=== PATIENT | female | born 1940 | race African-American/Black ===

== ENCOUNTER → 2017-11-05 | Outpatient (CLI) | payer OTHER, BC | LOC: BHFA 14:00 | PROVIDERS: ATTEND Internal Medicine Cardiovascular Disease | DX: R06.00 Dyspnea, unspecified (principal) ==

== ENCOUNTER → 2017-11-09 | Outpatient (CLI) | payer OTHER, BC | LOC: BHFA 08:30 | PROVIDERS: ATTEND Internal Medicine Cardiovascular Disease | DX: I50.9 Heart failure, unspecified (principal) | CPT/HCPCS: 78452; 93017; A9500; J2785 ==

== ENCOUNTER 2017-12-01 09:55 | Inpatient (IN) | payer OTHER, BC ==
--- NOTE | 2017-12-01 12:00 | GHP ---
[f rep st] HISTORY AND PHYSICAL DATE OF ADMISSION: 12/01/2017 INDICATIONS FOR ADMISSION: Heart failure. HISTORY OF PRESENT ILLNESS: This is a very pleasant, 77-year-old female who normally follows with Dr Faviola Patel in our office. The patient had a recent nuclear scan and echocardiogram, which showed no ischemia but an ejection fraction of less than 25% with torrential MR and tricuspid regurgitation . Given her reduced EF, as well as her significant MR/TR, she was referred to Dr. Sha Rose for ev aluation for possible tricuspid and mitral valve surgery. The patient was also found to be in atrial fibrillation at her time of visit, with a controlled ventricular rate. The patient saw Dr. Rose judd today and was found to be significantly fluid overloaded, with bilateral 3+ pitting edema. The patient has also been noticing extreme shortness of breath with minimal exertion. She denies any ch est pain at this point. Dr. Rose felt the patient should be evaluated for in-hospital diuresis, giv en her excessive weight gain and lower extremity edema. Upon evaluation of the patient, the patient indicates that she has been getting increasingly lethargic and increasing weight gain over the last m onth, despite changes of diuretic regimen as an outpatient. She does follow with Dr. Flower from [facility] as an outpatient. She is otherwise quite pleasant. Laboratory values and ECG are currently pending at this point. Blo od pressure and heart rate are stable. She is with her today, and she is willing to be admit tawny to the hospital for IV diuresis. PAST MEDICAL HISTORY: Significant for atrial fibrillation, sleep apnea, renal insufficiency. PAST SURGICAL HISTORY: Significant for nephrectomy, left side; hysterectomy; cholecystectomy; append ectomy. HOME MEDICATIONS: Consist of allopurinol, amlodipine, Benicar, carvedilol, Colace, furosemide, hydra lazine, lisinopril, tramadol, Coumadin. ALLERGIES: Penicillin. SOCIAL HISTORY: No smoking or drinking. The patient is currently . FAMILY HISTORY: Noncontributory. REVIEW OF SYSTEMS: Patient denies any vision changes. No headache. No palpitations. No chest pain . She does indicate a mild dyspnea with exertion. She does indicate having increased abdominal girt h, as well as significant lower extremity swelling. She denies any rashes, abrasions, or neurologic changes. PHYSICAL EXAM: VITAL SIGNS: Patient is currently afebrile at 96. Blood pressure is currently 140/9 0 with a heart rate of 72, respirations 12, saturating 95% on room air. HEENT: Pupils equal, round, reactive to light and accommodation. Extraocular movements intact. CARDIOVASCULAR: Irregularly ir regular S1, S2. There is a 2/6 systolic murmur, heard best at the apex. LUNGS: Reveal decreased br eath sounds at the right base. ABDOMEN: Soft, nontender. No guarding. EXTREMITIES: Reveal 3+ umair ma in the lower extremities bilaterally. NEUROLOGIC: The patient is alert x3. LABORATORY VALUES: Currently pending at this point. ASSESSMENT/PLAN: Weight gain/edema/heart failure. At this time, the patient appears to be volume ov erloaded. We will admit the patient to telemetry and commence intravenous diuresis. We will check h er baseline labs. We will also consult [facility] for assistance in her care. Ideally, espinozaul d like to diurese her at least 10-20 pounds with, hopefully, maintaining her kidney function. If thi s can be achieved, potentially we can re-discuss with Dr. Rose in the future about possible surgery if he deems her to be a suitable candidate. /[id number]/MODL
[2017-12-01] MEDS ORDERED: ACETAMINOPHEN 325 MG TAB PO PRN (14:16)
--- NOTE | 2017-12-01 14:19 | PDCONSULT ---
Television Antenna Installer Note: Renal Consult Note: CC: Edema HPI: The patient is a 77 y/o F with a known h/o CKD Stage IV, HTN, and CHF who presents as a direct admission per Dr. Win for volume overload. She reported that she has had increasing weight gain over the last month and was recently found to have worsening of her EF to 25% with severe MR/TR. She is being evaluated for a valve. She currently follows with Dr. Flower of [facility] and last had labs on 11/16 with Cr of 1.9mg/dL and minimal proteinuria. Today she states that she gained nearly 10lbs just since last Thursday and is now 159lbs, dry weight 140lbs. She denies any CP, h/o UT, or other ROS. She says that when she went to see Dr. Flower last time she was switched from lasix to bumex and her benicar was held, however, she remained on lisinopril and her other medications. She does admit to not watching her salt intake and often eats prepared food. Finally, she admits to a recent cough with no fevers or ill contacts. She denies other ROS. PMH: Atrial fibrillation, HTN, HL, CKD, EZ PSH: L sided nephrectomy, cholecystectomy, appendectomy Social Hx: , no ETOH or nicotine abuse Medications: List being reconciled. Allergies: Morphine, PCN>rash ROS: Negative except as per HPI Objective: Temp Pulse Resp BP Pulse Ox 36.6 C 104 H 18 125/88 H 95 12/01/17 12:53 12/01/17 12:53 12/01/17 12:53 12/01/17 12:53 12/01/17 12:53 Physical Exam: GEN: A+Ox3, no distress HEENT: +JVD, MMM CV: Irregular, systolic ejection murmur LLSB RESP: Decreased b/l no wheezing ABD: Soft, NT, ND EXT: 2+ edema to thighs NEURO: Non-focal, CN 2-12 grossly intact, normal strength SKIN: No rashes or lesions PSYCH: Normal affect, cooperative Labs: CXR pending Imaging: None on this admission. A/P: The patient is a 77 y/o F with a known h/o multiple medical issues and advanced renal disease who presents with volume overload, worsening systolic HF and severe MR/TR. CKD Stage IV -last Cr 1.9, labs pending as above -presumed cardiorenal syndrome in the setting of L nephrectomy -keep MAP>65, avoid contrast -need for dialysis not yet discussed, however will preserve non-dominant arm if PICC placement required HTN/vol: -would give lasix 80mg IV BID and monitor response, may need to change to bumex or add metolazone pending response -daily weights I/O's -low sodium diet, fluid restriction 1.5L -continue home meds of Coreg, amlodipine and hold hydralazine -Benicar held, await Cr to start JEREL inhibitor CHF with MR/TR -BNP, TSH pending -admitted by cardiology -possible future valve procedure with Dr. Rose -on coumadin for afib, daily INR Anemia -check CBC BMD -check daily chem7 -continue gout medications Thank you for this consult, we will continue to follow with you. If ?'s please call #[phone].
[2017-12-01] MEDS ORDERED: ALTEPLASE 2 MG VIAL IVP PRN (15:08)
--- NOTE | 2017-12-01 15:31 | CPEKG ---
Heart Rate: 108 RR Interval: 556 QRSD Interval: 96 QT Interval: 348 QTC Interval: 467 QRS [place]: -40 T Wave [place]: 109 EKG Severity - ABNORMAL ECG - EKG Impression: ATRIAL FIBRILLATION, V-RATE 84-139 EKG Impression: LEFT AXIS DEVIATION EKG Impression: BORDERLINE R WAVE PROGRESSION, ANTERIOR LEADS EKG Impression: NONSPECIFIC T ABNORMALITIES, LATERAL LEADS Electronically Signed By: Leroy Cadnea 01-Dec-2017 19:18:17
[2017-12-01 17:10] LABS: PLATELET COUNT 127 10^3/uL (150-400)
[2017-12-01 17:23] LABS: INR 2.12 (0.83-1.16); PROTIME(PATIENT) 23.8 SEC (12.0-15.0)
[2017-12-01] MEDS: FUROSEMIDE 100 MG/10 ML VIAL IVP SCH (17:24)
[2017-12-01] MEDS: CARVEDILOL 25 MG TAB PO SCH (18:18)
[2017-12-02 06:12] LABS: INR 2.25 (0.83-1.16); PROTIME(PATIENT) 24.9 SEC (12.0-15.0)
[2017-12-02] MEDS: FUROSEMIDE 100 MG/10 ML VIAL IVP SCH ×3 (06:16→21:06)
--- NOTE | 2017-12-02 06:58 | PDCARPN ---
Cardiology Progress Note Chief Complaint: SOB Assessment/Plan: Assessment: HF Valvular heart disease AF Plan: 12/02/17 06:55 Pt is diuresing but had difficulty sleeping Continue IV lasix renal function stable Appreciate nephrology input check labs in AM Pharmacy to dose coumadin restrict fluid/Na intake close eye on I/O's Add imdur Can add digoxin for rate control if needed Subjective: stable, less SOB Reviewed/Discussed With: multidisciplinary team Time Spent With Patient: 25 min Objective: Vital Signs (8 Hrs) Temp Pulse Resp BP Pulse Ox 12/02/17 04:00 36.3 C 101 H 18 129/91 H 91 L 12/01/17 23:34 36.6 C 106 H 18 123/94 H 91 L Intake/Output (24 Hrs) 12/01/17 12/02/17 12/03/17 05:59 05:59 05:59 Intake Total 1400 Output Total 900 Balance 500 Intake: Oral (ml) 1400 Output: Urine (ml) 900 Toilet 900 Other: Weight 70.9 kg Intake Quantity Yes Sufficient Result Diagrams: 12/01/17 16:30 12/02/17 05:50 - Physical Exam Constitutional: no apparent distress Ears, Nose, Mouth, Throat: moist mucous membranes Cardiovascular: irregularly irregular Peripheral Pulses: 1+: femoral (R), femoral (L) Respiratory: no crackles, no wheezes Gastrointestinal: normoactive bowel sounds Genitourinary: no suprapubic tenderness Skin: other (bilateral LE edema) Neurologic: AAOx3 Psychiatric: cooperative ICD10 Worksheet Patient Problems: Problems Problem Status Onset Diastolic CHF Acute Hypertension Acute Kidney neoplasm Acute PVC (premature ventricular contraction) Acute
--- NOTE | 2017-12-02 09:43 | ASMTCASEMG ---
Living Arrangements What is your living Answers: With Spouse arrangement? Who do you live with? Type Of Residence What kind of residence do Answers: House you live in? Discharge Plan Comments Coordination Status Comments Notes: Pt is a 77 y/o female admitted for CHF and cardiomyopathy. Pt will most likely d/c independent when medically stable. No therapies ordered at this time. CM available for changes. Plan: Independent Date Signed: 12/02/2017 09:42 AM Electronically Signed By:CHERYL Pfeiffer
[2017-12-02] MEDS: CARVEDILOL 25 MG TAB PO SCH ×2 (10:36→17:36)
[2017-12-02] MEDS: ISOSORBIDE MONONITRATE 30 MG TAB.SR PO SCH (10:36)
--- NOTE | 2017-12-02 11:20 | SOAPPROG ---
DEBRA Progress Note Assessment/Plan: Assessment: CHF consultation performed and dictated. 77 y/o AA woman with following cardiac history: --HTN x 50yrs. --first told she had CHF while living in [facility] 2004 --partial left nephrectomy for renal cancer reportedly in remission (2013) with CRI with baseline creatinine of 1.8. --echo 06/27 showed LVEf 45% with moderate MR and TR and estimated PAS 54mmHg. --back in summer of 2016 had personal fitness manager and could walk 1-2 miles. --hasn't felt well since Thanksgi2016 when she had a cold. She has gained 20lbs, has MONTNAA at 2 blocks and anasarca. --echo 11/08/17 shows LVEf 28% with moderate to severe MR and TR, estimated PAS 59mmHg and LVEDD 6.0cm.and new afib. --cardiolite 10/29 showed LVEf 22% with no ischemia. DDx of new onset CHF: valvular from MR and TR, afib with RVR, CAD or post viral from illness last fall. She is in biventricular CHF. PLAN: 1)increase Lasix to 80mg IV q8hrs. 2)start Aldactone 25mg PO qam 3)once euvolemic in 3-4 days of diuresis, repeat echo and do L/R cardiac cath ( if serum creatinine < 2.0) 4)no ACEI, ARB or ARNI for now. 5)full thyroid panel with abnormally low TSH 6)would not iraheta to cardiac surgery currently. High risk for RV failure luis- operatively. Thanks will follow with you. 12/02/17 11:14 Objective: Vital Signs Temp Pulse Resp BP Pulse Ox 36.3 C 100 13 120/92 H 94 12/02/17 04:00 12/02/17 10:36 12/02/17 08:00 12/02/17 10:36 12/02/17 08:00 Laboratory Results 12/01/17 16:30 12/02/17 05:50 12/01/17 12/02/17 12/03/17 05:59 05:59 05:59 Intake Total 1400 Output Total 900 Balance 500 PT 24.9 SEC (12.0-15.0) H 12/02/17 05:50 INR 2.25 (0.83-1.16) H 12/02/17 05:50 ICD10 Worksheet Patient Problems: Problems Problem Status Onset Diastolic CHF Acute Hypertension Acute Kidney neoplasm Acute PVC (premature ventricular contraction) Acute
[2017-12-02] MEDS: SPIRONOLACTONE 25 MG TAB PO SCH (12:18)
--- NOTE | 2017-12-02 13:14 | GCON ---
[f rep st] CONSULTATION CONGESTIVE HEART FAILURE CONSULTATION. DATE OF CONSULTATION: 12/02/2017 REASON FOR CONSULTATION: Evaluate woman with 25-pound weight gain, anasarca, and new biventricular heart failure, and recommend future management. HISTORY OF PRESENT ILLNESS: I was asked by Dr. Win to consult for the above reasons. The patient is a 77-year-old woman with the following cardiac history. She was first told she had heart failure in [facility] in 2004. She had a partial left nephrectomy for renal cancer in 2013, and reportedly is in remission. An echo in June 2016 demonstrated an LVEF of 45% with moderate mitral and tricuspid insufficiency, and with an estimated PA pressure of 54 mmHg. Up until August of last year, she had a maintenance trainer and said she could walk 1-2 miles without difficulty. She has not been feeling well since 2016. She did have a viral syndrome in that time frame. Over the next 4 months she has gained 20 pounds and has total body anasarca with symptomatic edema and is short of breath walking 2 blocks. An echo in October 2017 demonstrated an LVEF of 28% with [id number] RV dysfunction and vzxpsfdc-[id number] mitral and tricuspid insufficiency, with an LVEDD of 6.0 cm and an estimated PA pressure of 59 mmHg. A Cardiolite stress test in October 2017 suggested an LVEF of 22% with no ischemia. She was admitted to the hospital yesterday and was begun on IV Lasix. PAST MEDICAL HISTORY: New-onset systolic heart failure as per HPI. Moderate-to -severe mitral and tricuspid insufficiency as per HPI. New-onset AFib of unknown duration, sleep apnea, hypertension x50 year, and chronic renal insufficiency with a baseline creatinine of 1.8. PAST SURGICAL HISTORY: Partial left nephrectomy in 2013, cholecystectomy, and appendectomy. CURRENT MEDICATIONS: Coreg 25 mg b.i.d., Lasix 80 mg IV q.12 hours, Imdur, and Coumadin. ALLERGIES: Morphine and penicillin. SOCIAL HISTORY: Patient is . She denies tobacco use and has mild alcohol intake. FAMILY HISTORY: Unremarkable for premature heart failure or premature coronary artery disease. REVIEW OF SYSTEMS: Patient reports no recent fevers, chills, hemoptysis, or GI bleed symptoms such as hematemesis, melena, or bright red blood per rectum. Rest of 10-point review of systems is negative. PHYSICAL EXAMINATION: VITAL SIGNS: Afebrile, pulse 91 and irregularly irregular, blood pressure 132/90, respirations 20 on 3 L/minute, 91%. Weight 70.9 kg. GENERAL: A normal-appearing woman in no acute distress without chest pain or using excess respiratory muscles. EYES: Pupils equal and reactive to light. ENT: Oral mucosa with no cyanosis. NECK: Jugular venous pressure to 9 -10 cm. Carotid pulses 2+ bilaterally with no obvious bruits. LUNGS: Crackles at the bases bilaterally with no obvious wheezes or rhonchi. HEART: Slightly enlarged PMI and irregularly irregular rhythm with 2/6 holosystolic murmur and positive S3 gallop. ABDOMEN: Soft and nontender. Hepatosplenomegaly noted. No obvious ascites. No guarding or rebound. EXTREMITIES: 2+ peripheral pulses including femoral and pedal pulses. 2+ and no edema bilaterally to above the knees. NEURO: Normal affect and mood. NECK no nuchal rigidity. SKIN: No bleeding or cyanosis. EKG: Atrial fibrillation at 108 beats per minute with nonspecific ST depression. LABORATORY DATA: White count 4.3, hematocrit 34, platelets 127,000, MCV 91. INR 2.25. NT proBNP level 6000. Sodium 143, potassium 4.1, chloride 110, bicarb 23, BUN 52, creatinine 1.8. TSH 0.12. IMPRESSION AND RECOMMENDATIONS: A 77-year-old woman with new onset systolic heart failure with biventricular heart failure with a left ventricular ejection fraction of 28% and concurrent right ventricular dysfunction with class III-IV [place] [employer] symptoms. Differential diagnosis includes tachycardia-induced heart failure from atrial fibrillation versus post viral exposure maybe August 2017 versus primary valvular process from her mitral regurgitation, underlying coronary disease, or hypertension. She is still markedly hypervolemic. I think she would be high risk for cardiac surgery right now with possible right ventricular failure. RECOMMENDATIONS: 1. Would increase Lasix to 80 mg IV q.8 hours. 2. Would start on Aldactone 25 mg per day. 3. For now, would not put on an JEREL, ARB, or ARNI agent. 4. Would check full thyroid panel to make sure she is not hyperthyroid. 5. Once she is euvolemic (which I suspect will be in 3-4 days of diuresis), would do an echocardiogram and a left and right heart catheterization if her serum creatinine is less than 2.0. 6. My overall thought would be to control her atrial fibrillation rate and possibly try to convert to sinus rhythm and congestive heart failure medicines for 2-3 months before any valve surgery. /[id number]/MODL MTDD
--- NOTE | 2017-12-02 14:09 | SOAPPROG ---
SOAP Progress Note Assessment/Plan: A/P: The patient is a 77 y/o F with a known h/o multiple medical issues and advanced renal disease who presents with volume overload, worsening systolic HF and severe MR/TR. CKD Stage IV -last Cr 1.9, currently 1.8mg/dL today -presumed cardiorenal syndrome in the setting of L nephrectomy -keep MAP>65, avoid contrast -need for dialysis not yet discussed, however will preserve non-dominant arm if PICC placement required HTN/vol: -agree with lasix 80mg IV qh8, will order 3h urine sodium post medication for goal 60-80mEq -daily weights I/O's -low sodium diet, fluid restriction 1.5L -continue home meds of Coreg, amlodipine -Benicar held, await Cr to start JEREL inhibitor CHF with MR/TR -TSH low, awaiting free T3, T4 -aldactone started per cardiology -possible future valve procedure with Dr. Rose Peterson -on BB -on coumadin, daily INR -may consider future cardioversion Anemia -Hb >11 at goal -monitor CBC BMD -check daily chem7 -continue gout medications renally dosed 12/02/17 15:06 Subjective: Patient feeling well today. Up to chair. Admits that she was diagnosed with afib in August, however, thinks she had it "for a long time before that." Also , has lost nearly 3lbs since admission and admits that not all urine was collected in the hat yesterday. Objective: Vital Signs Temp Pulse Resp BP Pulse Ox 36.4 C 99 20 125/91 H 93 12/02/17 12:00 12/02/17 12:00 12/02/17 12:00 12/02/17 12:00 12/02/17 12:00 Laboratory Results 12/01/17 16:30 12/02/17 05:50 12/01/17 12/02/17 12/03/17 05:59 05:59 05:59 Intake Total 1400 Output Total 900 Balance 500 PT 24.9 SEC (12.0-15.0) H 12/02/17 05:50 INR 2.25 (0.83-1.16) H 12/02/17 05:50 Physical Exam - Physical Exam General Appearance: WD/WN, alert, no apparent distress EENT: PERRL/EOMI, normal ENT inspection Neck: non-tender, full range of motion, supple Respiratory: normal breath sounds, respiratory distress, decreased breath sounds Cardiac/Chest: normal peripheral pulses, edema, irregularly irregular Abdomen: normal bowel sounds, non-tender, soft Back: Normal inspection Skin: normal color, warm/dry Extremities: normal range of motion, pedal edema Neuro/Psych: no motor/sensory deficits, alert, normal mood/affect, oriented x 3 ICD10 Worksheet Patient Problems: Problems Problem Status Onset Diastolic CHF Acute Hypertension Acute Kidney neoplasm Acute PVC (premature ventricular contraction) Acute
[2017-12-02] MEDS ORDERED: WARFARIN SODIUM 5 MG TAB PO SCH (16:00)
[2017-12-02] MEDS: traMADol 50 MG TAB PO SCH (20:19)
[2017-12-02] MEDS: ALLOPURINOL 100 MG TAB PO SCH (20:20)
[2017-12-03] MEDS: FUROSEMIDE 100 MG/10 ML VIAL IVP SCH ×3 (05:12→21:16)
[2017-12-03 05:34] LABS: INR 2.28 (0.83-1.16); PROTIME(PATIENT) 25.1 SEC (12.0-15.0)
--- NOTE | 2017-12-03 07:15 | PDCARPN ---
Cardiology Progress Note Chief Complaint: SOB/edema Assessment/Plan: Assessment: HF Valvular heart disease AF Plan: 12/02/17 06:55 Pt is diuresing but had difficulty sleeping Continue IV lasix renal function stable Appreciate nephrology input check labs in AM Pharmacy to dose coumadin restrict fluid/Na intake close eye on I/O's Add imdur Can add digoxin for rate control if needed 12/03/17 07:14 Doing better good u/o Cr improving K low today--start KCL 20 meq po bid Continue current tx Check labs in AM Subjective: less SOB Reviewed/Discussed With: multidisciplinary team Time Spent With Patient: 25 min Objective: Vital Signs (8 Hrs) Temp Pulse Resp BP Pulse Ox 12/03/17 03:51 36.3 C 111 H 18 136/90 H 96 12/02/17 23:21 36.7 C 107 H 16 121/84 H 91 L Intake/Output (24 Hrs) 12/02/17 12/03/17 12/04/17 05:59 05:59 05:59 Intake Total 1400 900 Output Total 900 4650 Balance 500 -3750 Intake: Oral (ml) 1400 900 Output: Urine (ml) 900 4650 Toilet 900 4650 Other: Weight 70.9 kg 68.4 kg Intake Quantity Yes Sufficient Number of Voids Toilet 1 Result Diagrams: 12/03/17 05:10 12/03/17 05:10 - Physical Exam Constitutional: healthy appearing Eyes: PERRL Ears, Nose, Mouth, Throat: moist mucous membranes Cardiovascular: irregularly irregular Peripheral Pulses: 1+: femoral (R), femoral (L) Gastrointestinal: normoactive bowel sounds Genitourinary: no suprapubic tenderness Skin: other (LE edema) Musculoskeletal: no muscular tenderness Neurologic: AAOx3 Psychiatric: cooperative ICD10 Worksheet Patient Problems: Problems Problem Status Onset Diastolic CHF Acute Hypertension Acute Kidney neoplasm Acute PVC (premature ventricular contraction) Acute
[2017-12-03] MEDS: ISOSORBIDE MONONITRATE 30 MG TAB.SR PO SCH (08:00)
[2017-12-03] MEDS: POTASSIUM CL 20 MEQ TAB PO SCH ×2 (08:01→20:14)
[2017-12-03] MEDS: CARVEDILOL 25 MG TAB PO SCH ×2 (08:01→17:25)
[2017-12-03] MEDS: SPIRONOLACTONE 25 MG TAB PO SCH (08:01)
[2017-12-03] MEDS: traMADol 50 MG TAB PO SCH ×2 (08:02→20:14)
[2017-12-03] MEDS: ALLOPURINOL 100 MG TAB PO SCH ×2 (08:02→20:14)
[2017-12-03] MEDS: guaiFENesin 200 MG/10 ML UDL PO PRN ×2 (08:19→20:19)
[2017-12-03] MEDS ORDERED: POTASSIUM CL 20 MEQ TAB PO SCH (09:00)
--- NOTE | 2017-12-03 14:41 | ASMTCMCOM ---
CM Note CM Note Notes: CM spoke w/ Shayna with transitional care. Shayna is recommending for pt to have a HC RN. CM met w/ pt for dispo planning. Pt reports that she is not interested in being home bound at this time to have HC. Pt reports that she is an active person and feels comfortable w/ discharging without any services. CM available for changes. Plan: Independent Date Signed: 12/03/2017 02:41 PM Electronically Signed By:CHERYL Pfeiffer
[2017-12-03] MEDS ORDERED: POTASSIUM CL 20 MEQ TAB PO ONE (15:13)
--- NOTE | 2017-12-03 15:18 | SOAPPROG ---
SOAP Progress Note Assessment/Plan: Assessment/Plan: CKD 3: baseline Cr lately has been 1.7-2.0, currently Cr is down to 1.6, likely has some cardiorenal component in setting of also having solitary kidney. - No need for HD. - Ok to continue diuresis. - Will continue to monitor. - Avoid hypotension and nephrotoxins. Hypokalemia: K down to 3.2 in setting of diuretics. - Will give KCl supplementation today. - Pt also on spironolactone. - Will continue to monitor. Hypervolemia: slowly improving, pt on diuretics, will continue to monitor. HTN: controlled on current meds, will monitor. Subjective: No acute events overnight. Pt states that she is urinating a lot. Her breathing feels much better overall, swelling is improving a little but still there. Objective: Vital Signs Temp Pulse Resp BP Pulse Ox 36.5 C 100 16 120/81 H 95 12/03/17 11:21 12/03/17 11:21 12/03/17 11:21 12/03/17 11:21 12/03/17 11:21 Laboratory Results 12/03/17 05:10 12/03/17 05:10 12/02/17 12/03/17 12/04/17 05:59 05:59 05:59 Intake Total 1400 900 Output Total 900 4650 Balance 500 -3750 PT 25.1 SEC (12.0-15.0) H 12/03/17 05:10 INR 2.28 (0.83-1.16) H 12/03/17 05:10 General: alert and oriented, no acute distress Eyes: EOMI, PERRL OP: Clear CV: RRR Resp: CTA bilat, diminished breath sounds at bases, nonlabored respirations on NC Abd: Soft, NT/ND Ext: +2 edema BLE Neuro: CN II-XII grossly intact, no asterixis Psych: Cooperative, appropriate mood and affect ICD10 Worksheet Patient Problems: Problems Problem Status Onset chronic disease mgmt/transitional care Acute Diastolic CHF Acute Hypertension Acute Kidney neoplasm Acute PVC (premature ventricular contraction) Acute
[2017-12-03] MEDS ORDERED: WARFARIN SODIUM 2.5 MG TAB PO ONE (16:00)
[2017-12-04 04:14] LABS: PLATELET COUNT 118 10^3/uL (150-400)
[2017-12-04 04:38] LABS: INR 2.47 (0.83-1.16); PROTIME(PATIENT) 26.7 SEC (12.0-15.0)
[2017-12-04] MEDS: FUROSEMIDE 100 MG/10 ML VIAL IVP SCH ×2 (06:18→17:02)
--- NOTE | 2017-12-04 07:06 | PDCARPN ---
Cardiology Progress Note Chief Complaint: SOB/edema Assessment/Plan: Assessment: HF Valvular heart disease AF Plan: 12/02/17 06:55 Pt is diuresing but had difficulty sleeping Continue IV lasix renal function stable Appreciate nephrology input check labs in AM Pharmacy to dose coumadin restrict fluid/Na intake close eye on I/O's Add imdur Can add digoxin for rate control if needed 12/03/17 07:14 Doing better good u/o Cr improving K low today--start KCL 20 meq po bid Continue current tx Check labs in AM 12/04/17 07:03 Doing well Renal function improving Continue IV diuretics--needs at leas 10 lbs more off Renal following check labs in AM Goal is to reduce volume, plan for RHC/LHC next week if Cr stable Cardioversion can be performed, however given pt's myopathy, ability to stay in [facility]R long-term may not be realistic Subjective: doing well Reviewed/Discussed With: multidisciplinary team Time Spent With Patient: 25 min Objective: Vital Signs (8 Hrs) Temp Pulse Resp BP Pulse Ox 12/04/17 04:00 36.6 C 64 16 122/85 H 95 12/03/17 23:32 36.2 C 97 18 128/90 H 95 Intake/Output (24 Hrs) 12/03/17 12/04/17 12/05/17 05:59 05:59 05:59 Intake Total 900 400 Output Total 4650 3225 Balance -3750 -2825 Intake: Oral (ml) 900 400 Output: Urine (ml) 4650 3225 Toilet 4650 3225 Other: Weight 68.4 kg 65.8 kg Number of Voids Toilet 1 Result Diagrams: 12/04/17 04:05 12/04/17 04:05 - Physical Exam Constitutional: healthy appearing Eyes: PERRL Ears, Nose, Mouth, Throat: moist mucous membranes Cardiovascular: systolic murmur, irregularly irregular Peripheral Pulses: 1+: femoral (R), femoral (L) Respiratory: no crackles Gastrointestinal: normoactive bowel sounds Genitourinary: no suprapubic tenderness Skin: other (LE edema) Musculoskeletal: no muscular tenderness Neurologic: AAOx3 Psychiatric: cooperative ICD10 Worksheet Patient Problems: Problems Problem Status Onset chronic disease mgmt/transitional care Acute Diastolic CHF Acute Hypertension Acute Kidney neoplasm Acute PVC (premature ventricular contraction) Acute
[2017-12-04] MEDS: ISOSORBIDE MONONITRATE 30 MG TAB.SR PO SCH (08:01)
[2017-12-04] MEDS: traMADol 50 MG TAB PO SCH ×2 (08:01→21:04)
[2017-12-04] MEDS: ALLOPURINOL 100 MG TAB PO SCH ×2 (08:01→21:04)
[2017-12-04] MEDS: SPIRONOLACTONE 25 MG TAB PO SCH (08:02)
[2017-12-04] MEDS: CARVEDILOL 25 MG TAB PO SCH ×2 (08:02→18:05)
[2017-12-04] MEDS: POTASSIUM CL 20 MEQ TAB PO SCH ×2 (08:03→21:04)
--- NOTE | 2017-12-04 13:09 | SOAPPROG ---
SOAP Progress Note Assessment/Plan: Assessment: CKD 3, creat a bit below her baseline of 1.7-2.0 volume overload, improved, in fact may be overshooting a bit net 6.5 liters off over past 2 days hypernatremia, new contraction alkalosis, CO2 up to 31 Plan: continue diuresis, but will back off a bit to BID for now continue to follow lytes volume and renal function no urgent HD needs continue K supps and Aldactone as is for now 12/04/17 13:06 Subjective: up to chair feels well no cp nausea or vomiting tired, not sleeping well due to frequent urination spirits good appetite fine energy good as well Objective: Vital Signs Temp Pulse Resp BP Pulse Ox 36.3 C 100 16 116/68 91 L 12/04/17 10:45 12/04/17 10:45 12/04/17 10:45 12/04/17 10:45 12/04/17 10:45 Laboratory Results 12/04/17 04:05 12/04/17 04:05 12/03/17 12/04/17 12/05/17 05:59 05:59 05:59 Intake Total 900 400 200 Output Total 4650 3225 1000 Balance -9820 -2825 -800 PT 26.7 SEC (12.0-15.0) H 12/04/17 04:05 INR 2.47 (0.83-1.16) H 12/04/17 04:05 Physical Exam - Physical Exam General Appearance: alert, other (cooperative) Respiratory: rales, No rhonchi, No wheezing Cardiac/Chest: edema, irregularly irregular, No gallop, No friction rub Abdomen: normal bowel sounds, non-tender, soft Skin: warm/dry Extremities: non-tender, pedal edema Neuro/Psych: alert, normal mood/affect, oriented x 3 ICD10 Worksheet Patient Problems: Problems Problem Status Onset chronic disease mgmt/transitional care Acute Diastolic CHF Acute Hypertension Acute Kidney neoplasm Acute PVC (premature ventricular contraction) Acute
[2017-12-04] MEDS ORDERED: WARFARIN SODIUM 2.5 MG TAB PO ONE (16:00)
[2017-12-04] MEDS: ONDANSETRON 4 MG/2 ML VIAL IVP PRN (21:03)
[2017-12-04] MEDS: guaiFENesin 200 MG/10 ML UDL PO PRN (21:08)
[2017-12-05] MEDS: ONDANSETRON 4 MG/2 ML VIAL IVP PRN ×3 (03:02→18:27)
[2017-12-05 05:28] LABS: PLATELET COUNT 114 10^3/uL (150-400)
[2017-12-05 05:49] LABS: INR 2.59 (0.83-1.16); PROTIME(PATIENT) 27.7 SEC (12.0-15.0)
[2017-12-05] MEDS: FUROSEMIDE 100 MG/10 ML VIAL IVP SCH ×2 (09:13→17:31)
[2017-12-05] MEDS: CARVEDILOL 25 MG TAB PO SCH ×3 (09:14→21:35)
[2017-12-05] MEDS: SPIRONOLACTONE 25 MG TAB PO SCH (09:14)
[2017-12-05] MEDS: ALLOPURINOL 100 MG TAB PO SCH ×2 (09:14→21:35)
[2017-12-05] MEDS: traMADol 50 MG TAB PO SCH ×2 (09:14→21:35)
[2017-12-05] MEDS: POTASSIUM CL 20 MEQ TAB PO SCH ×2 (09:14→21:35)
[2017-12-05] MEDS: ISOSORBIDE MONONITRATE 30 MG TAB.SR PO SCH (09:15)
--- NOTE | 2017-12-05 10:31 | SOAPPROG ---
DEBRA Progress Note Assessment/Plan: Assessment: 1. Acute on chronic systolic heart failure 2. Dilated cardiomyopathy 3. Mitral regurgitation 4. Her tricuspid regurgitation 5. Renal insufficiency 6. Chronic renal disease 7. Hypertension 8. Fatigue 9. Severe edema 10 atrial fibrillation She has diuresed well during this hospitalization. Renal function is staying stable but we will have to continue to watch very carefully. Her heart rate is too fast often above 100 so I am going to increase her carvedilol to 3 times a day and see if she tolerates that. I would do that before I add digoxin to her. She has had a negative nuclear study in the past and we feel like there is no reason to do an invasive ischemic evaluation for her. Case was presented to the cardiac surgery service and cardiology conference this week it was felt that she is not a candidate for open valvular surgery because she would do very poorly with that invasive procedure. It is my belief that if we had a mitral clip available down the road if she still is sick after maximal medical therapy treatment that she would benefit from that. At this point time she needs to just continue with medical therapy and she that is what she wants to do as well. I have known her very well and will continue to follow her carefully. She is taking her Coumadin for atrial fibrillation and not having a problem with that. Ramiro would be to continue diuresis and watch her renal function in the hospital for several more days. I have answered all her questions. And visit her several times today. Plan: 12/05/17 10:32 12/05/17 10:34 12/05/17 10:38 Subjective: Aspen is feeling better today. She has continue her diuresis. She is very excited to be losing weight and her edema is going down. She is not having chest pain. She is not having jaw pain arm pain She is not short of breath. She is quite tired and last night she had some nausea vomiting. She has not had any fever chills She is taking her medications. She feels better this morning from a GI point of view. Objective: Vital Signs Temp Pulse Resp BP Pulse Ox 36.7 C 97 16 122/93 H 94 12/05/17 08:00 12/05/17 08:00 12/05/17 08:00 12/05/17 08:00 12/05/17 08:00 Laboratory Results 12/05/17 05:15 12/05/17 05:15 12/04/17 12/05/17 12/06/17 05:59 05:59 05:59 Intake Total 400 550 120 Output Total 3225 2400 50 Balance -4095 -3584 70 PT 27.7 SEC (12.0-15.0) H 12/05/17 05:15 INR 2.59 (0.83-1.16) H 12/05/17 05:15 Physical Exam - Physical Exam General Appearance: alert, mild distress Respiratory: crackles, rhonchi, prolonged expiration Cardiac/Chest: edema, systolic murmur, irregularly irregular Abdomen: non-tender, soft, No organomegaly Skin: warm/dry Extremities: pedal edema, No calf tenderness Neuro/Psych: normal mood/affect ICD10 Worksheet Patient Problems: Problems Problem Status Onset chronic disease mgmt/transitional care Acute Diastolic CHF Acute Hypertension Acute Kidney neoplasm Acute PVC (premature ventricular contraction) Acute
--- NOTE | 2017-12-05 13:46 | SOAPPROG ---
SOAP Progress Note Assessment/Plan: Assessment: CKD 3, creat at her baseline of 1.7-2.0 volume overload, improved net 8.5 liters off over past 3 days hypernatremia, better contraction alkalosis, CO2 back down Plan: continue diuresis,BID for now continue to follow lytes volume and renal function no urgent HD needs continue K supps and Aldactone as is for now 12/04/17 13:06 12/05/17 12:51 Subjective: nausea last night and earlier today, tolerated a banana for lunch no cp sob or fatigue slept OK spirits good family at bedside Objective: Vital Signs Temp Pulse Resp BP Pulse Ox 36.6 C 90 12 118/88 H 94 12/05/17 11:24 12/05/17 11:24 12/05/17 11:24 12/05/17 11:24 12/05/17 11:24 Laboratory Results 12/05/17 05:15 12/05/17 05:15 12/04/17 12/05/17 12/06/17 05:59 05:59 05:59 Intake Total 400 550 120 Output Total 3225 2400 50 Balance -2825 -1850 70 PT 27.7 SEC (12.0-15.0) H 12/05/17 05:15 INR 2.59 (0.83-1.16) H 12/05/17 05:15 Physical Exam - Physical Exam General Appearance: alert Neck: non-tender Respiratory: rales, No rhonchi, No wheezing Cardiac/Chest: edema, irregularly irregular, No gallop, No friction rub Abdomen: normal bowel sounds, non-tender, soft Skin: warm/dry Extremities: pedal edema Neuro/Psych: alert, normal mood/affect, oriented x 3 ICD10 Worksheet Patient Problems: Problems Problem Status Onset chronic disease mgmt/transitional care Acute Diastolic CHF Acute Hypertension Acute Kidney neoplasm Acute PVC (premature ventricular contraction) Acute
[2017-12-05] MEDS ORDERED: WARFARIN SODIUM 2.5 MG TAB PO ONE (16:00)
[2017-12-05] MEDS: FAMOTIDINE 20 MG TAB PO PRN (17:31)
[2017-12-06] MEDS: ONDANSETRON 4 MG/2 ML VIAL IVP PRN ×4 (03:35→21:59)
[2017-12-06] MEDS: FAMOTIDINE 20 MG TAB PO PRN ×2 (05:23→20:57)
[2017-12-06] MEDS: traMADol 50 MG TAB PO SCH ×2 (09:00→22:15)
[2017-12-06] MEDS: ISOSORBIDE MONONITRATE 30 MG TAB.SR PO SCH (09:19)
--- NOTE | 2017-12-06 09:40 | SOAPPROG ---
SOJASEN Progress Note Assessment/Plan: Assessment: 1. Acute on chronic systolic heart failure 2. Dilated cardiomyopathy 3. Mitral regurgitation 4. Her tricuspid regurgitation 5. Renal insufficiency 6. Chronic renal disease 7. Hypertension 8. Fatigue 9. Severe edema 10 atrial fibrillation Plan: 12/05/17 10:32 12/05/17 10:34 12/05/17 10:38 12/06/17 09:42 1. Acute on chronic systolic heart failure 2. Dilated cardiomyopathy 3. Mitral regurgitation 4. Tricuspid regurgitation 5. Renal insufficiency 6. Chronic renal disease 7. Hypertension 8. Fatigue 9. Severe edema 10. Atrial fibrillation 11. Nausea vomiting She is having significant nausea and some vomiting after meals. She has not had this before. She is diuresing well. Her creatinine is stable. I am going to hold her diuretics today and her potassium. I will ask hospitalist to see her and help us figure this out. I have talked Radiology and they recommended a CT scan with oral and IV contrast and that is being ordered. We will check her amylase and lipase. She does not have abdominal pain fevers or chills. I do not think she is having he 1 acute of infectious process. She certainly does not have an acute abdomen at this point time. She has a anemia were assuming is related to her chronic renal insufficiency and it is not changing any. Is no sign of bleeding when she is having her vomiting. Heart failure is improving. Would love to try to add hydralazine to her but her blood pressure is going to low and she feels terrible today so I am going to hold off on that she is already getting a formulation of Isordil. Her atrial fibrillation continues she is on her Coumadin. I am not going to be organic section technical lead for the rest of the day but Dr. Govea is organic section technical lead and anyone can call the office and get him. I will be back take care of her tomorrow. Subjective: she has no cp she has had sig n and has vomitted her food for 3 meals no abd pain . no fever chills cough she is dropping weight Objective: Vital Signs Temp Pulse Resp BP Pulse Ox 36.6 C 98 12 117/84 H 93 12/06/17 08:00 12/06/17 08:00 12/06/17 08:00 12/06/17 09:19 12/06/17 08:00 Laboratory Results 12/05/17 05:15 12/05/17 05:15 12/05/17 12/06/17 12/07/17 05:59 05:59 05:59 Intake Total 550 1220 Output Total 2400 1650 Balance -1850 -430 PT 27.7 SEC (12.0-15.0) H 12/05/17 05:15 INR 2.59 (0.83-1.16) H 12/05/17 05:15 Laboratory Tests 12/01/17 12/03/17 12/04/17 16:30 05:10 04:05 RBC Hgb Hct Plt Count INR Anion Gap Creatinine 1.5 H Glucose 98 NT-Pro-B Natriuret Pep 6000 H 63626 H TSH 0.124 L Free T4 1.19 Free T3 3.28 12/04/17 12/04/17 12/05/17 04:05 04:05 05:15 RBC Hgb Hct 32.9 L Plt Count 118 L INR 2.47 H Anion Gap 8 Creatinine 1.8 H Glucose 107 H NT-Pro-B Natriuret Pep TSH Free T4 Free T3 12/05/17 12/05/17 05:15 05:15 RBC 3.63 L Hgb 10.8 L Hct 33.6 L Plt Count 114 L INR 2.59 H Anion Gap Creatinine Glucose NT-Pro-B Natriuret Pep TSH Free T4 Free T3 Laboratory Tests 12/04/17 12/05/17 04:05 05:15 INR 2.47 H 2.59 H Physical Exam - Physical Exam General Appearance: alert, mild distress Respiratory: rhonchi, prolonged expiration Cardiac/Chest: systolic murmur, irregularly irregular Abdomen: normal bowel sounds, non-tender, soft, No organomegaly Skin: warm/dry Extremities: pedal edema, No calf tenderness Neuro/Psych: normal mood/affect ICD10 Worksheet Patient Problems: Problems Problem Status Onset chronic disease mgmt/transitional care Acute Diastolic CHF Acute Hypertension Acute Kidney neoplasm Acute PVC (premature ventricular contraction) Acute
[2017-12-06] MEDS: CARVEDILOL 25 MG TAB PO SCH ×3 (09:45→22:00)
--- NOTE | 2017-12-06 09:53 | SOAPPROG ---
SOJASEN Progress Note Assessment/Plan: Assessment: 1. Acute on chronic systolic heart failure 2. Dilated cardiomyopathy 3. Mitral regurgitation 4. Her tricuspid regurgitation 5. Renal insufficiency 6. Chronic renal disease 7. Hypertension 8. Fatigue 9. Severe edema 10 atrial fibrillation Plan: 12/05/17 10:32 12/05/17 10:34 12/05/17 10:38 12/06/17 09:42 1. Acute on chronic systolic heart failure 2. Dilated cardiomyopathy 3. Mitral regurgitation 4. Tricuspid regurgitation 5. Renal insufficiency 6. Chronic renal disease 7. Hypertension 8. Fatigue 9. Severe edema 10. Atrial fibrillation 11. Nausea vomiting She is having significant nausea and some vomiting after meals. She has not had this before. She is diuresing well. Her creatinine is stable. I am going to hold her diuretics today and her potassium. I will ask hospitalist to see her and help us figure this out. I have talked Radiology and they recommended a CT scan with oral and IV contrast and that is being ordered. We will check her amylase and lipase. She does not have abdominal pain fevers or chills. I do not think she is having he 1 acute of infectious process. She certainly does not have an acute abdomen at this point time. She has a anemia were assuming is related to her chronic renal insufficiency and it is not changing any. Is no sign of bleeding when she is having her vomiting. Heart failure is improving. Would love to try to add hydralazine to her but her blood pressure is going to low and she feels terrible today so I am going to hold off on that she is already getting a formulation of Isordil. Her atrial fibrillation continues she is on her Coumadin. I am not going to be production line technician for the rest of the day but Dr. Govea is production line technician and anyone can call the office and get him. I will be back take care of her tomorrow. 12/06/17 09:52 Have further discussed her evaluation with the radiologist and because of her elevated creatinine were going to do her CT scan with oral contrast only and no IV contrast. Objective: Vital Signs Temp Pulse Resp BP Pulse Ox 36.6 C 98 12 117/84 H 93 12/06/17 08:00 12/06/17 08:00 12/06/17 08:00 12/06/17 09:19 12/06/17 08:00 Laboratory Results 12/05/17 05:15 12/05/17 05:15 12/05/17 12/06/17 12/07/17 05:59 05:59 05:59 Intake Total 550 1220 Output Total 2400 1650 Balance -1850 -430 PT 27.7 SEC (12.0-15.0) H 12/05/17 05:15 INR 2.59 (0.83-1.16) H 12/05/17 05:15 ICD10 Worksheet Patient Problems: Problems Problem Status Onset chronic disease mgmt/transitional care Acute Diastolic CHF Acute Hypertension Acute Kidney neoplasm Acute PVC (premature ventricular contraction) Acute
--- NOTE | 2017-12-06 10:31 | ASMTCMCOM ---
CM Note CM Note Notes: 12/06/2017 Case Management Note Reviewed chart and discussed with RN. There are no PT or OT evals ordered at this time. Pt has strong family support. Pt has refused need for Home Care d/t homebound requirement. Transitional Care is following pt at this time. Case Management d/c poc: anticipating independent with follow up as directed. Case Management available if needs change. Date Signed: 12/06/2017 10:31 AM Electronically Signed By:Tyra Morales RN
[2017-12-06] MEDS: FUROSEMIDE 100 MG/10 ML VIAL IVP SCH (10:32)
[2017-12-06] MEDS: POTASSIUM CL 20 MEQ TAB PO SCH (10:32)
[2017-12-06] MEDS ORDERED: FUROSEMIDE 100 MG/10 ML VIAL IVP SCH (12:24)
--- NOTE | 2017-12-06 12:28 | SOAPPROG ---
SOAP Progress Note Assessment/Plan: Assessment: CKD 3, creat at her baseline of 1.7-2.0 volume overload, improved net 6 liters off over past 3 days hypernatremia, better contraction alkalosis, CO2 back down nausea and vomiting past 2 days, CT ordered, unable to keep down oral contrast Plan: continue diuresis,BID for now, will increase dose to 100mg IV continue to follow lytes volume and renal function no urgent HD needs continue K supps and Aldactone as is for now NG for oral contrast if needed all questions answered to her satisfaction 12/04/17 13:06 12/05/17 12:51 12/06/17 12:25 Subjective: nausea and vomiting, frustrating to her no cp, sob overall better no abd pain fevers or chills spirits good has a friend visiting Objective: Vital Signs Temp Pulse Resp BP Pulse Ox 36.6 C 98 12 117/84 H 93 12/06/17 08:00 12/06/17 08:00 12/06/17 08:00 12/06/17 09:19 12/06/17 08:00 Laboratory Results 12/06/17 10:15 12/05/17 05:15 12/05/17 12/06/17 12/07/17 05:59 05:59 05:59 Intake Total 550 1220 Output Total 2400 1650 Balance -1850 -430 PT 27.7 SEC (12.0-15.0) H 12/05/17 05:15 INR 2.59 (0.83-1.16) H 12/05/17 05:15 Physical Exam - Physical Exam General Appearance: WD/WN, alert, mild distress Respiratory: chest non-tender, rales, wheezing Cardiac/Chest: edema, other (irregular), No friction rub Abdomen: normal bowel sounds, non-tender, soft Skin: warm/dry Extremities: pedal edema Neuro/Psych: alert, normal mood/affect, oriented x 3 ICD10 Worksheet Patient Problems: Problems Problem Status Onset chronic disease mgmt/transitional care Acute Diastolic CHF Acute Hypertension Acute Kidney neoplasm Acute PVC (premature ventricular contraction) Acute
[2017-12-06] MEDS ORDERED: POLYETHYLENE GLYCOL 3350 17 GM PKT PO PRN (14:18)
--- NOTE | 2017-12-06 15:08 | GCON ---
[f rep st] CONSULTATION DATE OF CONSULTATION: 12/06/2017 REASON FOR CONSULTATION: I was asked by Dr. Patel to see this patient in regard to her nausea and vomiting. HISTORY OF PRESENT ILLNESS: This is a very pleasant 77-year-old female who was admitted by Cardiology for diuresis. She was recently found to have an ejection fraction of less than 25% with torrential MR and tricuspid regurgitation. She had become progressively more fluid overloaded as an outpatient despite diuretics, and was thus admitted given her renal failure. She is being seen by Cardiology as well as Nephrology. I am asked to see the patient in regard to her recent episode of emesis. This started yesterday, and has been persistent thereafter. After she eats, about an hour or so afterwards she throws up what looks like partially digested food. She has had a hysterectomy, a partial hysterectomy, 2 sections, as well as cholecystectomy in the past. She has never had any bowel obstructions. She normally takes a stool softener, which she has not been taking here. She has not had a bowel movement for 2 days. Prior to that, she did not feel especially constipated, has not had any diarrhea, and no significantly hard stools either. She had a little bit of abdominal pain yesterday, which has resolved today. PAST MEDICAL HISTORY: 1. Atrial fibrillation. 2. Sleep apnea. 3. Renal insufficiency. Baseline creatinine about 1.9. PAST SURGICAL HISTORY: 1. Nephrectomy. 2. Hysterectomy. 3. Cholecystectomy. 4. Appendectomy. MEDICATIONS: Please see medication reconciliation. ALLERGIES: Penicillin. SOCIAL HISTORY: She does not drink or smoke. She is accompanied by many friends when I am seeing her. FAMILY HISTORY: Noncontributory. It is also reviewed. REVIEW OF SYSTEMS: A 10-point review of systems is conducted and is negative except per HPI. PHYSICAL EXAMINATION: VITAL SIGNS: Blood pressure 117/71, heart rate 102, respiration rate 16, saturating 98% on 3 L, temperature is 36.8. IN GENERAL: The patient is sitting comfortably in a chair, in no acute distress. HEENT: Normocephalic, atraumatic. CARDIOVASCULAR: A regular rate and rhythm. There are occasional premature beats. There is a 1/6 systolic murmur. PULMONARY: Shows bilateral basilar crackles. She is not in any respiratory distress. She is wearing a nasal cannula. ABDOMEN: Shows her to have normal bowel sounds. She is soft, nontender, nondistended. This is a normal exam. SKIN: No rash. : No [place]. NEUROLOGIC: Shows her to be alert and oriented x3. She is moving all extremities. PSYCHIATRIC: Normal mood and affect. LABS: CBC from yesterday is relatively unremarkable, aside from mildly low platelets as well as anemia. INR is 2.59. Her creatinine today is 2.0, potassium 5.1, sodium 141. DATA: 1. I discussed her abdominal x-ray with Dr. Cervantes in Radiology. 2. I personally viewed and interpreted her abdominal x-ray. This shows I believe left-sided constipation, contrast in her ascending colon. 3. I reviewed her chart. IMPRESSION AND PLAN: A 77-year-old female, undergoing diuresis by Cardiology as well as Nephrology, who has approximately 24 hours of inability to tolerate p.o. 1. Inability to tolerate p.o., with nausea and vomiting: No clear bowel obstruction seen on x-ray. She is overall nontoxic appearing, with a reassuring abdominal exam. I think clinically most likely this is constipation. She has been diuresed here with potentially mild dehydration leading to stool desiccation, in addition to being off her stool softener with a different diet in the hospital. She is receiving Ultram here, which she also receives at home. I left a message for Dr Patel - I think we can cancel her CT for now unless Dr Patel feels otherwise. We will start her on a stool softener, MiraLAX, and give her a soapsuds enema, and follow her clinical course after this. May also represent a gastritis or potentially a reaction to one of her medications, although this seems less likely. CT scan may delineate further potential pathologies. 2. Systolic congestive heart failure: Diuresed per Cardiology as well as Renal. She seems to be on appropriate medications. This is nonischemic. 3. Atrial fibrillation: On warfarin. Rate controlled with carvedilol. 4. Renal insufficiency: She is being followed by Nephrology. 5. DVT ppx - start heparin SQ Thank you for involving Hospital Medicine in the care of this patient. We will continue to follow with you. /[id number]/MODL MTDD
[2017-12-06] MEDS: SPIRONOLACTONE 25 MG TAB PO SCH (15:37)
[2017-12-06] MEDS: ALLOPURINOL 100 MG TAB PO SCH ×2 (15:58→22:03)
[2017-12-06] MEDS: DOCUSATE SODIUM 100 MG CAP PO SCH ×2 (15:58→22:15)
[2017-12-06] MEDS ORDERED: WARFARIN SODIUM 2.5 MG TAB PO ONE (16:00)
[2017-12-06] MEDS: WARFARIN SODIUM 2.5 MG TAB PO ONE ×2 (16:42→17:41)
[2017-12-06] MEDS ORDERED: HEPARIN 5,000 UNIT/0.5 ML SYR SC SCH (22:00)
[2017-12-07] MEDS: FAMOTIDINE 20 MG TAB PO PRN ×2 (04:13→17:05)
[2017-12-07 05:46] LABS: INR 2.64 (0.83-1.16); PROTIME(PATIENT) 28.1 SEC (12.0-15.0)
[2017-12-07] MEDS: ISOSORBIDE MONONITRATE 30 MG TAB.SR PO SCH (09:27)
[2017-12-07] MEDS: SPIRONOLACTONE 25 MG TAB PO SCH (09:29)
[2017-12-07] MEDS: POTASSIUM CL 20 MEQ TAB PO SCH (09:29)
[2017-12-07] MEDS: CARVEDILOL 25 MG TAB PO SCH ×3 (09:30→20:16)
[2017-12-07] MEDS: ALLOPURINOL 100 MG TAB PO SCH ×2 (09:30→20:16)
[2017-12-07] MEDS: traMADol 50 MG TAB PO SCH ×2 (09:30→20:16)
[2017-12-07] MEDS: DOCUSATE SODIUM 100 MG CAP PO SCH ×2 (09:44→20:16)
--- NOTE | 2017-12-07 11:17 | SOAPPROG ---
SOAP Progress Note Assessment/Plan: Assessment: 1. Acute on chronic systolic heart failure 2. Dilated cardiomyopathy 3. Mitral regurgitation 4. Her tricuspid regurgitation 5. Renal insufficiency 6. Chronic renal disease 7. Hypertension 8. Fatigue 9. Severe edema 10 atrial fibrillation Plan: 12/05/17 10:32 12/05/17 10:34 12/05/17 10:38 12/06/17 09:42 1. Acute on chronic systolic heart failure 2. Dilated cardiomyopathy 3. Mitral regurgitation 4. Tricuspid regurgitation 5. Renal insufficiency 6. Chronic renal disease 7. Hypertension 8. Fatigue 9. Severe edema 10. Atrial fibrillation 11. Nausea vomiting 12/07/17 11:19 Problem list as above. She is continuing to have her nausea and vomiting. She has no abdominal pain Her amylase and lipase were normal. She does have anemia which is mildly decreased after being in the hospital for 5 days. However her anemia is pretty much exactly where it has been. I do not think it has been worked up carefully I think it has been assumed that it was secondary to her chronic renal disease Hospitalists are seeing her and can help us decide how to evaluate these issues further. I had talked Radiology yesterday in our plan had been to do a CT scan of the abdomen with oral contrast agents But the patient could not tolerate that prep so she did not have the study done. She did have a flat plate of the abdomen which showed no obvious obstruction or other pathology. Her creatinine has gone up and her nausea is a major issue so I think we should hold her Lasix for today unless renal decides he would like to continue it. I do not know if this nausea and vomiting could be a reaction to a medication. I do not think it is due to GI tract edema secondary to heart failure as her heart failure significantly improved her weight is way down and this all started after she got much better from and edema point of view. It is clearly not clear what the problem is. She does not have any new complaints when I talked to her today. Subjective: She continues to have vomiting after she eats. she has no abdominal pain She has no fevers or chills She has no flank pain or dysuria. She is feeling stronger vis-a-vis her heart issues. She has no chest pain or chest tightness. Objective: Vital Signs Temp Pulse Resp BP Pulse Ox 36.7 C 97 16 125/88 H 93 12/07/17 08:00 12/07/17 08:00 12/07/17 08:00 12/07/17 09:30 12/07/17 08:00 Laboratory Results 12/06/17 10:15 12/07/17 04:15 12/06/17 12/07/17 12/08/17 05:59 05:59 05:59 Intake Total 1220 850 Output Total 1650 875 Balance -430 -25 PT 28.1 SEC (12.0-15.0) H 12/07/17 04:15 INR 2.64 (0.83-1.16) H 12/07/17 04:15 Selected Entries 12/07/17 12/07/17 12/07/17 08:00 09:27 09:30 Blood Pressure 118/89 H 125/88 H 125/88 H Laboratory Tests 12/03/17 12/06/17 12/07/17 05:10 10:15 04:15 BUN 42 H 41 H Creatinine 1.6 H 2.0 H Amylase 73 Lipase 127 Free T4 1.19 Free T3 3.28 Physical Exam - Physical Exam General Appearance: mild distress Respiratory: rhonchi (He now I do not know), prolonged expiration Cardiac/Chest: systolic murmur, irregularly irregular (A a) Abdomen: non-tender Skin: pallor Extremities: non-tender, pedal edema, No calf tenderness Neuro/Psych: normal mood/affect ICD10 Worksheet Patient Problems: Problems Problem Status Onset chronic disease mgmt/transitional care Acute Diastolic CHF Acute Hypertension Acute Kidney neoplasm Acute PVC (premature ventricular contraction) Acute
--- NOTE | 2017-12-07 12:33 | SOAPPROG ---
SOAP Progress Note Assessment/Plan: Assessment: 1. CKD IV. Presumed all cardiorenal syndrome. Creat increased slightly yesterday but still at b/l of 1.7-2.0. 2. CHF. Acute systolic and valvular, biventricular with severe pulm HTN. Wt down 7kg from admission, still with sig edema. OK from kidney standpoint to continue diuresis. Will adjust lasix dosing to 8 am 2 pm. 3. N/V. Possibly constipation based on KUB. Improving after miralax. Plan: 12/07/17 12:30 12/07/17 12:33 Subjective: N/V better this am. Had miralax last night resulting in BMs. Has not really tried eating yet. Swelling a little better since admission. Objective: Vital Signs Temp Pulse Resp BP Pulse Ox 36.4 C 100 18 111/85 H 94 12/07/17 11:27 12/07/17 11:27 12/07/17 11:27 12/07/17 11:27 12/07/17 11:27 Laboratory Results 12/06/17 10:15 12/07/17 04:15 12/06/17 12/07/17 12/08/17 05:59 05:59 05:59 Intake Total 1220 850 Output Total 1650 875 Balance -430 -25 PT 28.1 SEC (12.0-15.0) H 12/07/17 04:15 INR 2.64 (0.83-1.16) H 12/07/17 04:15 In chair, pleasant, NAD IRIR, II/ sys murmur at LSB; JVD 6 cm Decreased bibasilar breath sounds, crackles heard 1/2 up bilaterally 1+ sacral, 2+ ankle pitting edema ICD10 Worksheet Patient Problems: Problems Problem Status Onset chronic disease mgmt/transitional care Acute Kidney neoplasm Acute Hypertension Acute Diastolic CHF Acute PVC (premature ventricular contraction) Acute
[2017-12-07] MEDS ORDERED: FUROSEMIDE 100 MG/10 ML VIAL IVP SCH (14:00)
--- NOTE | 2017-12-07 14:36 | HOSPPROG ---
Hospitalist Progress Note Assessment/Plan: 77 yo F w MR here for diuresis abd pain: improved after bm reasonable to attribute this episode to constipation hyperkalemia: d/c scheduled K proph: anticoagulated systolic chf w valvular disease: diuresis per cardiology Subjective: moved bowels, feels better. case d/w dr hobbs Objective: Vital Signs Temp Pulse Resp BP Pulse Ox 36.4 C 100 18 111/85 H 94 12/07/17 11:27 12/07/17 11:27 12/07/17 11:27 12/07/17 11:27 12/07/17 11:27 Laboratory Results 12/06/17 10:15 12/07/17 04:15 12/06/17 12/07/17 12/08/17 05:59 05:59 05:59 Intake Total 1220 850 680 Output Total 1650 875 900 Balance -430 -25 -220 PT 28.1 SEC (12.0-15.0) H 12/07/17 04:15 INR 2.64 (0.83-1.16) H 12/07/17 04:15 - Physical Exam Constitutional: no apparent distress, appears nourished Eyes: PERRL, anicteric sclera Ears, Nose, Mouth, Throat: moist mucous membranes, hearing normal Cardiovascular: regular rate and rhythym, no murmur, rub, or gallop Respiratory: no respiratory distress, no rales or rhonchi Gastrointestinal: normoactive bowel sounds, soft, non-tender abdomen Genitourinary: no bladder fullness, No reese in urethra Skin: warm, normal color Musculoskeletal: full muscle strength, no muscle tenderness Neurologic: AAOx3, sensation intact bilaterally ICD10 Worksheet Patient Problems: Problems Problem Status Onset chronic disease mgmt/transitional care Acute Diastolic CHF Acute Hypertension Acute Kidney neoplasm Acute PVC (premature ventricular contraction) Acute
[2017-12-07] MEDS: WARFARIN SODIUM 2.5 MG TAB PO SCH (15:17)
[2017-12-07] MEDS: ONDANSETRON DISINTEGRATING 4 MG TAB PO PRN ×2 (17:05→22:09)
[2017-12-08] MEDS: SIMETHICONE 80 MG TAB CHEW PO SCH ×6 (01:46→21:38)
[2017-12-08] MEDS: ONDANSETRON DISINTEGRATING 4 MG TAB PO PRN ×3 (02:32→13:59)
[2017-12-08] MEDS: FAMOTIDINE 20 MG TAB PO PRN (05:17)
[2017-12-08 05:47] LABS: INR 2.75 (0.83-1.16)
[2017-12-08] MEDS ORDERED: CANN-EASE 2 GM TUBE TP PRN (07:50)
[2017-12-08] MEDS ORDERED: FAMOTIDINE 20 MG TAB PO PRN (08:00)
[2017-12-08] MEDS: ISOSORBIDE MONONITRATE 30 MG TAB.SR PO SCH (10:51)
[2017-12-08] MEDS: ALLOPURINOL 100 MG TAB PO SCH ×2 (10:54→21:16)
[2017-12-08] MEDS: traMADol 50 MG TAB PO SCH ×2 (10:54→21:15)
[2017-12-08] MEDS: CARVEDILOL 25 MG TAB PO SCH ×3 (10:57→21:15)
[2017-12-08] MEDS: DOCUSATE SODIUM 100 MG CAP PO SCH ×2 (10:58→21:16)
[2017-12-08] MEDS: SPIRONOLACTONE 25 MG TAB PO SCH (10:58)
[2017-12-08] MEDS: POLYETHYLENE GLYCOL 3350 17 GM PKT PO SCH (10:58)
--- NOTE | 2017-12-08 12:45 | SOAPPROG ---
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 GI to see Plan: continue diuresis,BID for now, will increase dose to 100mg IV continue to follow lytes volume and renal function no urgent HD needs continue K supps and Aldactone as is for now all questions answered to her satisfaction 12/04/17 13:06 12/05/17 12:51 12/06/17 12:25 12/08/17 12:41 12/08/17 12:47 Subjective: up to chair, still with nausea and vomiting CT not done, KUB shows no obstruction, but possibly constipation sob overall better with diuresis no chest pain wants to eat, but vomits spirits good today Objective: Vital Signs Temp Pulse Resp BP Pulse Ox 36.5 C 105 H 12 129/82 H 92 12/08/17 11:06 12/08/17 11:06 12/08/17 11:06 12/08/17 11:06 12/08/17 11:06 Laboratory Results 12/06/17 10:15 12/08/17 05:30 12/07/17 12/08/17 12/09/17 05:59 05:59 05:59 Intake Total 850 1120 Output Total 875 1550 Balance -25 -430 PT 29.0 SEC (12.0-15.0) H 12/08/17 05:30 INR 2.75 (0.83-1.16) H 12/08/17 05:30 Physical Exam - Physical Exam General Appearance: alert Respiratory: No rhonchi, No wheezing, No pleural rub Cardiac/Chest: irregularly irregular, No gallop, No friction rub Abdomen: normal bowel sounds, non-tender, soft Extremities: swelling (lower extremities bilaterally, better than on Thursday) Neuro/Psych: alert, normal mood/affect, oriented x 3 ICD10 Worksheet Patient Problems: Problems Problem Status Onset chronic disease mgmt/transitional care Acute Diastolic CHF Acute Hypertension Acute Kidney neoplasm Acute PVC (premature ventricular contraction) Acute
--- NOTE | 2017-12-08 14:56 | SOAPPROG ---
DEBRA Progress Note Assessment/Plan: Assessment: 1. Acute on chronic systolic heart failure 2. Dilated cardiomyopathy 3. Mitral regurgitation 4. Her tricuspid regurgitation 5. Renal insufficiency 6. Chronic renal disease 7. Hypertension 8. Fatigue 9. Severe edema 10 atrial fibrillation Plan: 12/05/17 10:32 12/05/17 10:34 12/05/17 10:38 12/06/17 09:42 1. Acute on chronic systolic heart failure 2. Dilated cardiomyopathy 3. Mitral regurgitation 4. Tricuspid regurgitation 5. Renal insufficiency 6. Chronic renal disease 7. Hypertension 8. Fatigue 9. Severe edema 10. Atrial fibrillation 11. Nausea vomiting 12/07/17 11:19 Problem list as above. 12/08 The problems is taken from above. She is doing very well with her anasarca she has lost lot of weight. She continues to feel some nausea not vomiting today so that is an improvement. She has no abdominal pain no fever chills she had does not have dysuria she does not have frequency she had a urine done the that showed trace bacteria will just check that again and Dr. Reyna and I have been talking about trying to get her rid of some of her medicines and see if that makes her feel better I would like to try to get her discharged home\ I do not feel that she has any kind of evidence for an acute abdominal process and that is significant. We have talked about doing CT scan with some oral contrast but will we do not feel that is necessary at this time. If she deteriorates in any way she is going to follow up with us as an outpatient and with her primary care doctors. We are going to hold her diuretics today and try to discharge her tomorrow. I have answered all her questions. Her renal insufficiency is slightly worse and we want to be careful about diuresis. 12/08/17 14:59 Subjective: She is continuing to feel nauseated. She has a very benign abdomen with no tenderness no abdominal pain no dysuria or frequency. She has no fever chills or cough We can check her urine. On she has no chest pain jaw pain. And she is getting up and walking around. Her edema is markedly improved. Objective: Vital Signs Temp Pulse Resp BP Pulse Ox 36.5 C 105 H 12 129/82 H 92 12/08/17 11:06 12/08/17 11:06 12/08/17 11:06 12/08/17 11:06 12/08/17 11:06 Laboratory Results 12/06/17 10:15 12/08/17 05:30 12/07/17 12/08/17 12/09/17 05:59 05:59 05:59 Intake Total 850 1120 Output Total 875 1550 Balance -25 -430 PT 29.0 SEC (12.0-15.0) H 12/08/17 05:30 INR 2.75 (0.83-1.16) H 12/08/17 05:30 Selected Entries 12/08/17 12/08/17 12/08/17 08:00 10:51 10:57 Heart Rate 96 Blood Pressure 122/97 H 105/88 H 105/88 H Mean Arterial 105 H Pressure (MAP) 12/08/17 11:06 Heart Rate 105 H Blood Pressure 129/82 H Mean Arterial 97 Pressure (MAP) Laboratory Tests 12/06/17 12/08/17 10:15 05:30 Hct 32.8 L ESR 17 BUN 37 H Creatinine 2.0 H Physical Exam - Physical Exam General Appearance: alert Neck: supple Respiratory: rales Cardiac/Chest: systolic murmur, irregularly irregular Skin: warm/dry, No pallor Neuro/Psych: alert, normal mood/affect ICD10 Worksheet Patient Problems: Problems Problem Status Onset chronic disease mgmt/transitional care Acute Diastolic CHF Acute Hypertension Acute Kidney neoplasm Acute PVC (premature ventricular contraction) Acute
--- NOTE | 2017-12-08 14:59 | HOSPPROG ---
Hospitalist Progress Note Assessment/Plan: 77 yo F w MR here for diuresis abd pain: improved after bm reasonable to attribute this episode to constipation nausea: still there despite moving bowels minimal new meds hold imdur hyperkalemia: d/c scheduled K proph: anticoagulated systolic chf w valvular disease: diuresis per cardiology Subjective: case d/w bhavani hobbs and [facility]. still w nausea Objective: Vital Signs Temp Pulse Resp BP Pulse Ox 36.5 C 105 H 12 129/82 H 92 12/08/17 11:06 12/08/17 11:06 12/08/17 11:06 12/08/17 11:06 12/08/17 11:06 Laboratory Results 12/06/17 10:15 12/08/17 05:30 12/07/17 12/08/17 12/09/17 05:59 05:59 05:59 Intake Total 850 1120 Output Total 875 1550 Balance -25 -430 PT 29.0 SEC (12.0-15.0) H 12/08/17 05:30 INR 2.75 (0.83-1.16) H 12/08/17 05:30 - Physical Exam Constitutional: no apparent distress, appears nourished Eyes: PERRL, anicteric sclera Ears, Nose, Mouth, Throat: moist mucous membranes, hearing normal Cardiovascular: regular rate and rhythym, no murmur, rub, or gallop Respiratory: no respiratory distress, no rales or rhonchi Gastrointestinal: normoactive bowel sounds Genitourinary: no bladder fullness, No reese in urethra Skin: warm, normal color Musculoskeletal: full muscle strength Neurologic: AAOx3 ICD10 Worksheet Patient Problems: Problems Problem Status Onset chronic disease mgmt/transitional care Acute Diastolic CHF Acute Hypertension Acute Kidney neoplasm Acute PVC (premature ventricular contraction) Acute
[2017-12-08] MEDS: WARFARIN SODIUM 2.5 MG TAB PO SCH (16:40)
[2017-12-09] MEDS: ONDANSETRON 4 MG/2 ML VIAL IVP PRN ×3 (02:35→13:59)
[2017-12-09 04:52] LABS: INR 3.36 (0.83-1.16); PROTIME(PATIENT) 33.8 SEC (12.0-15.0)
--- NOTE | 2017-12-09 07:57 | SOAPPROG ---
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 If CO2 rises further, can add in some diamox as well. Hypernatremia- Na better 141, encourage sufficient water intake with aggressive diuresis contraction alkalosis, CO2 better 30-- can add in diamox if needed nausea- persistent, will defer to hospitalist (not taking po well) anemia- TSH ok, iron stores low-- needs IV iron course and GI eval for outpt colonscopy. I will give dose IV Iron now. 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 New lesion lip- reports history of "cold sores" in past and symptoms similar. No dizzines, sob, cp. Her iron levels are low and she reports has been on po iron, no colonscopy. Objective: Vital Signs Temp Pulse Resp BP Pulse Ox 36.7 C 95 12 128/97 H 95 12/09/17 04:00 12/09/17 04:00 12/09/17 04:00 12/09/17 04:00 12/09/17 04:00 Laboratory Results 12/06/17 10:15 12/09/17 04:25 12/08/17 12/09/17 12/10/17 05:59 05:59 05:59 Intake Total 1120 450 Output Total 1550 Balance -430 450 PT 33.8 SEC (12.0-15.0) H 12/09/17 04:25 INR 3.36 (0.83-1.16) H 12/09/17 04:25 Physical Exam - Physical Exam General Appearance: alert, no apparent distress EENT: other (vesicular lesion on L corner upper lip) Neck: supple Respiratory: lungs clear Cardiac/Chest: regular rate, rhythm Abdomen: normal bowel sounds, non-tender, soft Skin: warm/dry Extremities: other (++edema bilat LE) Neuro/Psych: alert, oriented x 3 ICD10 Worksheet Patient Problems: Problems Problem Status Onset chronic disease mgmt/transitional care Acute Diastolic CHF Acute Hypertension Acute Kidney neoplasm Acute PVC (premature ventricular contraction) Acute
[2017-12-09] MEDS ORDERED: SODIUM FERRIC GLUCONAT/SUCROSE 125 MG in NS 100 ML IV SCH (09:30)
[2017-12-09] MEDS: SIMETHICONE 80 MG TAB CHEW PO SCH ×4 (09:37→21:06)
[2017-12-09] MEDS: DOCUSATE SODIUM 100 MG CAP PO SCH ×2 (10:25→21:07)
[2017-12-09] MEDS: ALLOPURINOL 100 MG TAB PO SCH ×2 (10:25→21:06)
[2017-12-09] MEDS: POLYETHYLENE GLYCOL 3350 17 GM PKT PO SCH (10:25)
[2017-12-09] MEDS: traMADol 50 MG TAB PO SCH ×2 (10:25→21:07)
[2017-12-09] MEDS: CARVEDILOL 25 MG TAB PO SCH ×3 (10:25→21:07)
--- NOTE | 2017-12-09 11:48 | ASMTCMCOM ---
CM Note CM Note Notes: Pts case discussed in morning rounds. Pt is being discharged today. Pt will d/c independent without any needs. Pt is being followed by transitional care. CM available for changes. Plan: Independent Date Signed: 12/09/2017 11:47 AM Electronically Signed By:CHERYL Pfeiffer
--- NOTE | 2017-12-09 12:04 | GDS ---
[f rep st] DISCHARGE SUMMARY DIAGNOSIS: Systolic heart failure. HOSPITAL COURSE: The patient was admitted to the hospital on 12/01/2017 with anasarca and congestive heart failure. She had been doing poorly and gaining peripheral edema over time and has seen the art failure service. She has seen Dr. Sha Rose for possible consideration of a valvular surgery b ecause of her severe mitral and tricuspid regurgitation. She has a history of atrial fibrillation wi th a controlled ventricular response when she came in and she was admitted to the hospital. She has a history of sleep apnea and uses a machine for that. She has a history of nephrectomy on the left s aylin, hysterectomy, cholecystectomy, appendectomy. She had been on Coumadin for atrial fibrillation w hen she came in, as well as allopurinol, amlodipine, Benicar, carvedilol, Colace, furosemide, hydrala zine and lisinopril. The patient was followed during the course of her hospitalization by the renal service and by the [facility] pitalist. She developed some nausea and vomiting 5 days before discharge and has never really improv ed. Her evaluation has not revealed any pathology other than constipation. She is being discharged now with a blood pressure of 130/90. She has a heart rate of 95. She has a respiratory rate of 12 a nd she is sitting comfortably in the hospital bed. She has atrial fibrillation. She was admitted to the hospital with a weight of 65.3 kg and she is being discharged with a weight o f 64.7 kg. It was felt by the renal service and the cardiology service and the hospitalist that the medications in her diuretics might be making her nauseated, so she is going to be discharged home off her spironolactone and Lasix. She is going to watch her weight and call us and come in quickly if s he has a 5 pound weight gain. However, she will be seen in 5 days in the clinic by CARINA Gil. I have spoken to Dr. Schaffer about her and he would like her to be followed by the heart failure se [facility]. At that time, they will decide if they want to resume diuretics and at what doses. The patient's hyd ralazine had been held while she was in the hospital and that may also be resumed when she is an outp atient. Her creatinine has been inching up while she was here. Her baseline is 1.7, she has a 2.1 now. Some people believe she lost 7.7 kg since admission, but we cannot document that with her weights. Her s odium is 141. Her CO2 is okay right now, but we are watching to see if it rises. She has a contract ion alkalosis and if we need to we could add Diamox, but that is not felt to be necessary at this kaitlyn e. We evaluated her anemia. Her TSH was normal. Iron stores were low and it was recommended she have a n outpatient colonoscopy. She received some IV iron while she was in the hospital. Abdominal x-ray showed no significant pathology. So, she is going home with a dilated cardiomyopathy with heart failure with reduced ejection fraction , with weakness and tiredness with chronic renal insufficiency, with edema, which is almost completel y gone at this point in time, and the issues are going to be for her how this nausea unfolds and resu noelle her diuretics early next week and considering whether or not she needs more hydralazine. She is up and walking. She is very eager to go home at this time. She has never had an acute abdome n. She has never had CVA tenderness. She has never had any hemoptysis that we have seen or melena. But, with her iron studies low, we are recommending follow up with the GI service, which she is going to arrange with her primary care physician. She will be with her 's care and she will return to us if there is any issues that are signifi cant. She also has all of our phone numbers and will call us if she has any questions. We want her to be feeling good. When she was admitted to the hospital on December 01, her x-ray showed cardiom egaly with peribronchial thickening and tiny effusions, thought to be consistent with mild congestive heart failure. When she was admitted, her creatinine was 1.9 and her BUN was 52. Her glucose occasionally was eleva tawny at 137, 103, 107, and this needs to be followed carefully. Her iron was 26, her TIBC was 299, and her iron saturation was 9. Both the iron and the saturation w ere low. Her ferritin, however, was stable at 33.1. She did have a BNP originally that was 6000 and then 2 days later came back at 18,000 despite diuresing several liters. Her TSH was low at 0.124, but her free T4 was 1.19 and her free T3 was 3.28. As mentioned before, her amylase and lipase were normal. So, she is going home with many problems and what has happened during this hospitalization is she has had a good diuresis, her edema is markedly better, she was having edema to her knees before and that is gone now. She is ambulating, but she has remaining issues of adjusting her medications. She is going to continue on her Coumadin for her anticoagulation for atrial fibrillation. She is going to f ollow up with the heart failure service. She is going to follow up with her primary care doctor for evaluation of her low iron and consideration for GI evaluation by the GI service and with the primary care doctor to work on the nausea issues. Her prognosis is guarded. She has a significant cardiomyopathy and she is frail and she is weak. Elizabeth jaquez has significant renal disease, atrial fibrillation and other significant medical problems. /[id number]/MODL
--- NOTE | 2017-12-09 12:04 | ASMTCMCOM ---
CM Note CM Note Notes: Dr. Patel is canceling pts discharged. Pt continues to throw up. Dr. Patel is putting in a GI consult. Pt will most likely d/c independent when medically stable. CM available for changes. Plan: Independent Date Signed: 12/09/2017 12:04 PM Electronically Signed By:CHERYL Pfeiffer
[2017-12-09] MEDS: valACYclovir 500 MG TAB PO SCH (16:10)
--- NOTE | 2017-12-09 23:32 | SOAPPROG ---
SOAP Progress Note Assessment/Plan: Assessment: Plan: 12/09/17 13:29 A/P See dictated consult note for details. Has had nausea and vomiting for the last week. Suspect multifactorial. Also has iron deficiency anemia. Recommend EGD and colonoscopy. R/b/a discussed with patient. She would like to wait and will plan E/C as outpatient with anesthesiology support. Thank you for the consultation! Objective: Vital Signs Temp Pulse Resp BP Pulse Ox 36.4 C 97 13 129/90 H 96 12/09/17 22:02 12/09/17 22:02 12/09/17 22:02 12/09/17 22:02 12/09/17 22:02 Laboratory Results 12/06/17 10:15 12/09/17 04:25 12/08/17 12/09/17 12/10/17 05:59 05:59 05:59 Intake Total 1120 450 500 Output Total 1550 300 Balance -430 450 200 PT 33.8 SEC (12.0-15.0) H 12/09/17 04:25 INR 3.36 (0.83-1.16) H 12/09/17 04:25 ICD10 Worksheet Patient Problems: Problems Problem Status Onset chronic disease mgmt/transitional care Acute Diastolic CHF Acute Hypertension Acute Kidney neoplasm Acute PVC (premature ventricular contraction) Acute
[2017-12-10] MEDS: ONDANSETRON 4 MG/2 ML VIAL IVP PRN (03:28)
[2017-12-10 04:07] LABS: INR 3.1 (0.83-1.16); PROTIME(PATIENT) 31.8 SEC (12.0-15.0)
--- NOTE | 2017-12-10 05:27 | GCON ---
[f rep st] CONSULTATION DATE OF CONSULTATION: 12/09/2017 CONSULTING PHYSICIAN: Chaitanya Patel MD. REASON FOR CONSULTATION: Nausea and vomiting/iron-deficiency anemia. CHIEF COMPLAINT: Nausea and vomiting. HISTORY OF PRESENT ILLNESS: The patient is a 77-year-old female with history of atrial fibrillation, sleep apnea, congestive heart failure with ischemic cardiomyopathy who was admitted to [facility] on 12/01/2017. The patient was admitted due to increasing weight gain and was found to have a worsening ejection fraction of 25% with severe mitral regurgitation as well as tricuspid regurgitation. During her hospital stay, she has had significant weight loss from diuresis with improvement in her CHF. Unfortunately, she has had significant nausea and vomiting during her hospital stay. For at least the last 7 days, she has been experiencing nausea intermittently. She also has had episodes of vomiting where she vomits food approximately 1-2 hours after eating, which occurs approximately twice a day. She believes that food makes symptoms worse with no significant alleviating factors. Also, during her stay, she was found to have significant iron-deficiency anemia. She has not had a prior colonoscopy in multiple years. She did have a prior EGD done approximately 3 years ago due to a chicken bone being stuck in her mid esophagus. She denies any dysphagia, odynophagia, change in bowel habits, or blood in the stool. I am being asked by Dr. Patel to evaluate the patient in consultation regarding her nausea, vomiting, as well as iron-deficiency anemia. PAST MEDICAL HISTORY: 1. Congestive heart failure with ischemic cardiomyopathy. 2. Atrial fibrillation. 3. Obstructive sleep apnea. 4. Hypertension. 5. Chronic renal insufficiency. PAST SURGICAL HISTORY: 1. Partial left nephrectomy. 2. Cholecystectomy. 3. Appendectomy. ALLERGIES: Morphine and penicillin. MEDICATIONS: Coreg, Lasix, Imdur, Coumadin. SOCIAL HISTORY: . No significant alcohol or tobacco use. FAMILY HISTORY: No history of colon cancer. REVIEW OF SYSTEMS; A 14 point review of systems was asked. Pertinent positives and negatives per HPI. PHYSICAL EXAMINATION: VITALS: Blood pressure 120/97, pulse 95, respirations 12 , temperature 36.7. GENERAL: Awake, alert, oriented x3. HEENT: Moist mucosa. Anicteric sclerae. CARDIOVASCULAR: Regular rate and rhythm. Positive S1, S2. No murmurs or gallops appreciated. LUNGS: Clear to auscultation bilaterally. No wheezes, rales, or rhonchi. ABDOMEN: Soft, nontender, nondistended. Positive bowel sounds. No guarding or rebound. EXTREMITIES: No cyanosis or clubbing. Positive edema. NEUROLOGIC: 2-12 grossly intact. LYMPH: No lymphadenopathy, PSYCH: Normal affect. MUSCULOSKELETAL: Full muscle strength. No muscle tenderness. No obvious joint effusions. SKIN: Warm, nonicteric. BLOOD WORK: Hemoglobin approximately 10.8. INR 2.36 on Coumadin. Iron saturation 9, TIBC 299, ferritin 33.1, iron 26. Creatinine 2.1. ASSESSMENT AND PLAN: 1. Nausea- with episodes of vomiting that started during her hospital stay. Suspect multifactorial with medication component? From the history, it may appear she may have some mild gastroparesis. Would recommend more of a liquid, low-fat, low-residual diet. Would consider PPI therapy. Recommend EGD since she needs it for evaluation of her iron deficiency anemia. 2. Iron-deficiency anemia- would recommend upper endoscopy as well as colonoscopy for iron-deficiency anemia. The risks, benefits, and alternatives of the procedure were discussed in great detail with the patient. The risk of infection, bleeding, perforation, and sedation were discussed. Due to her congestive heart failure as well as obstructive sleep apnea, she is at increased risk of sedation and will need Anesthesiology for support during her procedure. We will plan an outpatient, where she hopefully will be able to tolerate the prep. Hopefully her CHF will also be optimized at this time. 3. Obstructive sleep apnea. 4. History of congestive heart failure. 5. History of cardiomyopathy. Thank you very much for this consultation. /[id number]/MODL MTDD
[2017-12-10] MEDS: valACYclovir 500 MG TAB PO SCH (06:00)
--- NOTE | 2017-12-10 06:44 | SOAPPROG ---
SOAP Progress Note Assessment/Plan: Assessment: Plan: 12/09/17 13:29 A/P See dictated consult note for details. Has had nausea and vomiting for the last week. Suspect multifactorial. Also has iron deficiency anemia. Recommend EGD and colonoscopy. R/b/a discussed with patient. She would like to wait and will plan E/C as outpatient with anesthesiology support. Thank you for the consultation! 12/10/17 06:41 A/P 1. Nausea- with vomiting. Some clinical improvement from yesterday with no recent episode of vomiting. Minimal nausea. Suspect multifactorial. Will recommend EGD as outpatient. 2. Anemia- iron deficiency. Recommend EGD and colonoscopy as outpatient. Will need anesthesiology support due to CHF, EZ, etc. D/w patient 3. GI will sign off. Thank you for the consultation! Subjective: cc: Follow up nausea and vomiting. Minimal nausea this am. No recent episode of vomiting. Objective: Vital Signs Temp Pulse Resp BP Pulse Ox 36.5 C 88 13 115/89 H 97 12/10/17 03:47 12/10/17 03:47 12/10/17 03:47 12/10/17 03:47 12/10/17 03:47 Laboratory Results 12/06/17 10:15 12/10/17 03:30 12/09/17 12/10/17 12/11/17 05:59 05:59 05:59 Intake Total 450 950 Output Total 550 Balance 450 400 PT 31.8 SEC (12.0-15.0) H 12/10/17 03:30 INR 3.10 (0.83-1.16) H 12/10/17 03:30 Physical Exam - Physical Exam General Appearance: alert, no apparent distress EENT: No scleral icterus (R), No scleral icterus (L) Respiratory: normal breath sounds, No crackles, No rales Cardiac/Chest: regular rate, rhythm, edema Abdomen: non-tender, soft, No guarding, No rebound Skin: normal color, warm/dry Neuro/Psych: alert, normal mood/affect, oriented x 3 ICD10 Worksheet Patient Problems: Problems Problem Status Onset chronic disease mgmt/transitional care Acute Kidney neoplasm Acute Hypertension Acute Diastolic CHF Acute PVC (premature ventricular contraction) Acute
[2017-12-10] MEDS: ALLOPURINOL 100 MG TAB PO SCH (09:11)
[2017-12-10] MEDS: CARVEDILOL 25 MG TAB PO SCH (09:11)
[2017-12-10] MEDS: traMADol 50 MG TAB PO SCH (09:12)
[2017-12-10] MEDS: DOCUSATE SODIUM 100 MG CAP PO SCH (09:12)
[2017-12-10] MEDS: SIMETHICONE 80 MG TAB CHEW PO SCH ×2 (09:12→13:29)
[2017-12-10] MEDS: POLYETHYLENE GLYCOL 3350 17 GM PKT PO SCH (09:12)
--- NOTE | 2017-12-10 09:28 | SOAPPROG ---
SOAP Progress Note Assessment/Plan: Assessment/Plan: CKD 3: baseline Cr lately has been 1.7-2.0, currently Cr is stable at 2.1. - No need for HD. - Will continue to monitor. - Avoid hypotension and nephrotoxins. - Will arrange outpatient f/u with her ingot weigher, Dr. Flower. Hypervolemia: improving with diuresis, would recommend switching to PO diuretics today. Anemia: pt got IV iron, will continue to monitor. Pt evaluated by GI with plans for outpatient endoscopy. HTN: controlled on current meds, will monitor. Subjective: HPI: No acute events overnight. Pt states that she is feeling better, nausea/ vomiting improved today and able to keep food down. She saw GI and planning outpatient endoscopy. She is hoping to go home today. She still has some swelling but overall improved and breathing is comfortable. Objective: Vital Signs Temp Pulse Resp BP Pulse Ox 36.6 C 83 12 130/94 H 95 12/10/17 08:00 12/10/17 08:00 12/10/17 08:00 12/10/17 08:00 12/10/17 08:00 Laboratory Results 12/06/17 10:15 12/10/17 03:30 12/09/17 12/10/17 12/11/17 05:59 05:59 05:59 Intake Total 450 950 Output Total 550 Balance 450 400 PT 31.8 SEC (12.0-15.0) H 12/10/17 03:30 INR 3.10 (0.83-1.16) H 12/10/17 03:30 General: alert and oriented, no acute distress Eyes: EOMI, PERRL OP: Clear CV: RRR Resp: nonlabored respirations, CTAB Abd: Soft, NT/ND Ext: +2 edema BLE Neuro: CN II-XII grossly intact, no asterixis Psych: cooperative, appropriate mood and affect ICD10 Worksheet Patient Problems: Problems Problem Status Onset chronic disease mgmt/transitional care Acute Diastolic CHF Acute Hypertension Acute Kidney neoplasm Acute PVC (premature ventricular contraction) Acute
--- NOTE | 2017-12-10 11:38 | GDS ---
[f rep st] DISCHARGE SUMMARY This is an addendum to the discharge summary that was dictated yesterday. The patient felt that she was too nauseated to go home and so the discharge was held for 24 hours. Patient was seen by the gastroenterology service and they are arranging for her to have followup for GI evaluations but felt that her condition was benign and multifactorial and that there was nothing t hat needed to be done for the patient prior to discharge. They did not recommend any medications. The patient had a soft abdomen yesterday. Today has a soft abdomen. I have spoken with her and her h arsalan. I have told them both if she develops more nausea or vomiting, she can easily come back to [facility] emergency room at any time. She will be with her . She will be watched closely and it is easy for her to get here if she needs some help and if it were an emergency, she will call 911. She is going to have follow up with the gastroenterology service and more of an evaluation there. Elizabeth jaquez is going to have follow up with her primary care doctor for all her other medical issues and she traore s follow up with the congestive heart failure service in clinic on Thursday morning. At the time of discharge, she is not on her Lasix or spironolactone, and the decision will be made Mo nday as to resuming those medications. She is being held off her spironolactone and Lasix because of this ongoing nausea and it was believed by some of us that perhaps she was having problems because of those drugs specifically, so we will s ee what happens and she will need diuretics long-term. She is aware of that and I have discussed it with her. I have discussed her case with Dr. Schaffer. The hospitalists have seen her as well in consultation and we have reviewed her case yesterday but no t again today. All her questions have been answered. All her 's questions have been answered. /[id number]/MODL
[2017-12-10 12:29] VITALS: BP 110/71; PULSE 87; RESP 16; TEMP 97.7; O2SAT 92
== END 2017-12-10 13:42 | disposition home or self-care (01) | DRG 291 ==
LOC: F2W 11:31 → OBSVTOIN 14:16
PROVIDERS: ADMIT Internal Medicine Cardiovascular Disease; ATTEND Internal Medicine Cardiovascular Disease
PROC: 02HV33Z Insertion of Infusion Device into Superior Vena Cava, Percutaneous Approach (ICD-10-PCS; principal; 2017-12-01)
DX: I13.0 Hypertensive heart and chronic kidney disease with heart failure and stage 1 through stage 4 chronic kidney disease, or unspecified chronic kidney disease (principal); I50.23 Acute on chronic systolic (congestive) heart failure; N18.3 Chronic kidney disease, stage 3 (moderate); I42.0 Dilated cardiomyopathy; R11.2 Nausea with vomiting, unspecified; D50.9 Iron deficiency anemia, unspecified; E87.6 Hypokalemia; E87.0 Hyperosmolality and hypernatremia; G47.33 Obstructive sleep apnea (adult) (pediatric); I48.91 Unspecified atrial fibrillation; Z90.5 Acquired absence of kidney; Z79.01 Long term (current) use of anticoagulants; Z85.528 Personal history of other malignant neoplasm of kidney
CPT/HCPCS: 84481-90; 97161-GP; C1751; G8978-GP-CI; G8979-GP-CI; G8980-GP-CI; J1940; J2405; J2916

== ENCOUNTER 2017-12-28 16:10 | Inpatient (IN) | payer OTHER, BC ==
--- NOTE | 2017-12-28 16:32 | EDPHY ---
H & P Stated Complaint: Edema Time Seen by Provider: 12/28/17 16:32 - Personal History Current Tetanus/Diphtheria Vaccine: Yes Current Tetanus Diphtheria and Acellular Pertussis (TDAP): Yes Tetanus Vaccine Date: 2003 - Medical/Surgical History Hx Asthma: No Hx Chronic Respiratory Disease: No Hx Diabetes: No Hx Cardiac Disease: Yes Hx Renal Disease: Yes Hx Cirrhosis: No Hx Alcoholism: No Hx HIV/AIDS: No Hx Splenectomy or Spleen Trauma: No Other PMH: Lt kidney cyst removed 10/27/2013, hysterectomy, jules, appy, HTN, CHF - Social History Smoking Status: Never smoked Constitutional: Initial Vital Signs Temperature (C) 36.9 C 12/28/17 16:23 Heart Rate 98 12/28/17 16:23 Respiratory Rate 16 12/28/17 16:23 Blood Pressure 104/79 12/28/17 16:23 O2 Sat (%) 97 12/28/17 16:23 O2 Delivery Mode Room Air Allergies/Adverse Reactions: morphine Allergy (Verified 12/28/17 16:19) Penicillins Allergy (Verified 12/28/17 16:19) Rash Home Medications: Medication Instructions Recorded Allopurinol [Allopurinol 100 MG 100 mg PO BID 08/17/12 (*)] traMADol [Ultram 50 mg (*)] 50 mg PO BID 08/17/12 Cholecalciferol Vit D3 [Vitamin D3 2,000 units PO DAILY 10/07/13 2000 units] amLODIPine BESYLATE [Norvasc 5 mg 5 mg PO DAILY 12/01/17 (*)] Acetaminophen [Tylenol 325mg (*)] 650 mg PO Q4HRS PRN tab 12/09/17 Carvedilol [Coreg (*)] 37.5 mg PO BIDMEAL 12/28/17 Docusate Sodium [Colace 100 MG (*)] 100 mg PO HS 12/28/17 Potassium Cl [Klor-Con 20 meq (*)] 20 meq PO DAILY 12/28/17 Spironolactone [Aldactone 25 MG 12.5 mg PO DAILY 12/28/17 (*)] Torsemide [Demadex] 60 mg PO DAILY@1500 12/28/17 Torsemide [Demadex] 100 mg PO DAILY 12/28/17 Warfarin Sodium [Coumadin 2.5MG 2.5 mg PO SUMOTUWEFRSA@0900 03/19/18 (*)] Warfarin Sodium [Coumadin 5MG (*)] 5 mg PO TH@0900 12/28/17 Medical Decision Making - Diagnostics Imaging Results: Imaging Impressions Chest X-Ray 12/28/17 13:46 Impression: Cardiomegaly and features of chronic congestive heart failure.. Imaging: I viewed and interpreted images myself ED Course/Re-evaluation: CHIEF COMPLAINT: CHF exacerbation HISTORY OF PRESENT ILLNESS: This patient is a 77 y/o female with history of atrial fibrillation, CHF, and hypertension arriving at the request of her field artillery operations man, Dr. Schaffer, for admission for CHF exacerbation. Her outpatient treatment has not been successful so far. Dr. Schaffer plans to place a PICC line so the patient can receive appropriate diuretic medication management. The patient is aware of this plan. She has been having worsening shortness of breath lately, especially today. She is unable to lie flat at night. She has had worsening peripheral edema as well. No fever, chest pain, vomiting, or other associated symptoms. REVIEW OF SYSTEMS: A 10 point review of systems was performed and is negative with the exception of the elements mentioned in the history of present illness. PHYSICAL EXAM: HR, BP, O2 Sat, RR. Temp noted General Appearance: Alert, well hydrated, appropriate, and non-toxic appearing. Head: Atraumatic without scalp tenderness or obvious injury Eyes: Pupils equal, round, reactive to light and accommodation, EOMI, no trauma , no injection. Ears: Clear bilaterally, no perforation, normal landmarks Nose: Atraumatic, no rhinorrhea, clear. Throat: There is no erythema or exudates, no lesions, normal tonsils, mucus membranes moist. Neck: Supple, 2+ carotid upstroke, nontender, no lymphadenopathy. Respiratory: Rales at bases. No retractions, no distress, no wheezes, and no accessory muscle use. Cardiovascular: Irregularly irregular. Bilateral carotid, radial, dorsalis pedis, and posterior tibial pulses intact. Good capillary refill all extremities. Gastrointestinal: Abdomen is soft, nontender, non-distended, no masses, no rebound, no guarding, no peritoneal signs. Musculoskeletal: Peripheral edema. Normal active ROM of all extremities, atraumatic. Neurological: Alert, appropriate, and interactive. The patient has normal DTRs and non-focal cranial nerves, motor, sensory, and cerebellar exam. Skin: No rashes, good turgor, no nodules on palpation. Past medical history: Hypertension, Congestive Heart Failure. Past surgical history: Hysterectomy, Cholecystectomy, Appendectomy Family history: Noncontributory. Social history: . Retired. Lives in [place]. DIAGNOSTICS/PROCEDURES/CRITICAL CARE TIME: The 12 lead EKG was interpreted by myself. See hard copy and/or "tracemaster" electronic copy for interpretation. Atrial fibrillation. Evidence of PVC, left anterior fascicular block, abnormal R wave progression, nonspecific T abnormalities in lateral leads, and borderline prolonged QT interval. DIFFERENTIAL DIAGNOSIS: The differential diagnosis for the patient's shortness of breath and hypoxemia included but was not limited to pneumonia, myocardial infarction, acute mountain sickness, high altitude pulmonary edema, congestive heart failure, and pulmonary embolus. MEDICAL DECISION MAKIN77 y/o female with history of CHF presents with worsening shortness of breath. Exam reveals rales at lung bases, peripheral edema, irregularly irregular heart rate. Plan for labs including CBC, chemistries, troponin, BNP. Patient is failing outpatient treatment, per her field artillery operations man. Plan to admit for PICC line placement, IV diuresis. EKG shows atrial fibrillation, see above for details. 16:37 Spoke with hospitalist service. Dr. Villa accepts admission for acute on chronic CHF exacerbation, failing outpatient treatment. - Data Points Medications Given: Allopurinol (Allopurinol) 100 mg PO BID FRANKLYN Stop: 06/26/18 20:59 Last Admin: 12/28/17 21:05 Dose: 100 mg Carvedilol (Coreg) 37.5 mg PO BIDMEAL FRANKLYN Stop: 06/26/18 17:59 Last Admin: 12/28/17 19:23 Dose: 37.5 mg Docusate Sodium (Colace) 100 mg PO HS FRANKLYN Stop: 06/26/18 20:59 Last Admin: 12/28/17 21:05 Dose: 100 mg Tramadol HCl (Ultram) 50 mg PO BID FRANKLYN Stop: 06/26/18 20:59 Last Admin: 12/28/17 21:05 Dose: 50 mg Discontinued Medications Furosemide (Lasix Injection) 80 mg IVP ONCE ONE Stop: 12/28/17 17:56 Last Admin: 12/28/17 18:11 Dose: 80 mg Departure - Departure Disposition: [facility] Acute Clinical Impression: CHF exacerbation Qualifiers: Heart failure type: combined systolic and diastolic Qualified Code(s): I50.43 - Acute on chronic combined systolic (congestive) and diastolic (congestive) heart failure Condition: Fair Report Scribed for: Jag Hammond Report Scribed by: Jeannette Mendoza Date of Report: 12/28/17 Time of Report: 17:06
--- NOTE | 2017-12-28 16:42 | CPEKG ---
Heart Rate: 107 RR Interval: 561 QRSD Interval: 94 QT Interval: 376 QTC Interval: 502 QRS [place]ell: -43 T Wave [place]: 118 EKG Severity - ABNORMAL ECG - EKG Impression: ATRIAL FIBRILLATION EKG Impression: VENTRICULAR PREMATURE COMPLEX EKG Impression: LEFT ANTERIOR FASCICULAR BLOCK EKG Impression: ABNRM R PROG, CONSIDER ASMI OR LEAD PLACEMENT EKG Impression: NONSPECIFIC T ABNORMALITIES, LATERAL LEADS EKG Impression: BORDERLINE PROLONGED QT INTERVAL Electronically Signed By: Jag Hammond 28-Dec-2017 21:33:54
[2017-12-28 16:55] LABS: PLATELET COUNT 137 10^3/uL (150-400)
[2017-12-28] MEDS ORDERED: ACETAMINOPHEN 325 MG TAB PO PRN (17:51)
[2017-12-28] MEDS ORDERED: FUROSEMIDE 100 MG/10 ML VIAL IVP ONE (17:55)
[2017-12-28] MEDS ORDERED: FUROSEMIDE 40 MG/4 ML VIAL ONE (18:10)
[2017-12-28] MEDS: CARVEDILOL 25 MG TAB PO SCH (19:23)
--- NOTE | 2017-12-28 20:03 | GHP ---
[f rep st] HISTORY AND PHYSICAL DATE OF ADMISSION: 12/28/2017 CHIEF COMPLAINT: Edema and increasing weight. HISTORY: The patient is a 77-year-old female, who was just discharged from the hospital on December 10 w hen she was admitted to the cardiology service for CHF exacerbation. She did well upon first dischar ging home. However, for the last 3-4 days, she has started gaining water again. Her weight is up 3 pounds. She has dyspnea on exertion and shortness of breath. She has worsening PND and orthopnea. She is now requiring 2 pillows to sleep. Breathing gets much better when she is upright. Her edema has worsened, going all the way up her leg past her knees, and all the way to her lower abdomen. She denies any chest pain. PAST MEDICAL HISTORY: 1. Congestive heart failure. Last echocardiogram per our system 2013. 2. Severe mitral and tricuspid regurgitation, reportedly pending surgery. 3. Atrial fibrillation. 4. Obstructive sleep apnea, on CPAP at night. 5. Iron deficiency anemia. Outpatient colonoscopy pending. 6. Renal cell carcinoma, status post nephrectomy. 7. Chronic kidney disease. Baseline creatinine 2.0. 8. Gout. PAST SURGICAL HISTORY: 1. Hysterectomy. 2. Cholecystectomy. 3. Appendectomy. MEDICATIONS: Please see computer record for full detailed list. ALLERGIES: Morphine and penicillin. SOCIAL HISTORY: Distant smoking. She will occasionally have a glass of wine. She lives with her [facility]. REVIEW OF SYSTEMS: Complete review of systems obtained. Review of systems negative regarding consti tutional, HEENT, GI, pulmonary, cardiovascular, , hematology, skin, muscular, endocrine, psych exce pt for positives and negatives in HPI. FAMILY HISTORY: Reviewed and noncontributory to the current complaint. PHYSICAL EXAMINATION: GENERAL: Well-developed, well-nourished female, in no acute distress. VITAL SIGNS: Temperature 36.9, pulse 98, blood pressure 104/79, saturating 97% on room air. EYES: Normal conjunctivae. Pupils equal, round, react to light. ENT: Normal ears and nose. Hearing intact. N ormal teeth. Oropharynx moist. NECK: Trachea midline. No thyromegaly. CHEST: Normal effort. JOSE EDUARDO NGS: Clear to auscultation bilaterally. CARDIOVASCULAR: Irregularly irregular, 3 to 4+ edema with positive JVD to the angle of the jaw. ABDOMEN: Soft, nontender. No hepatosplenomegaly. SKIN: War m, dry, intact without rash. MUSCULOSKELETAL: No cyanosis or clubbing. Strength 5/5 upper and lowe r extremities. NEUROLOGIC: Cranial nerves intact. Normal sensation to light touch. PSYCH: Alert and oriented x3. Normal affect. Normal judgment and insight. Normal memory. LABORATORY DATA: White count 4.69, hematocrit 35.6, platelets is 137, sodium 142, potassium 4.8, and story chloride 110, bicarb 25, BUN 51, creatinine 1.7, glucose 102. Chest x-ray reviewed by me. My personal interpretation is cardiomegaly and some possible mild CHF. EKG shows atrial fibrillation with heart rate of 107, but no ischemic ST-T wave changes. Medical rec ords review. She was discharged by Dr. Jr Patel on December 10. ASSESSMENT/PLAN: 1. Acute on chronic congestive heart failure. I suspect this may be due to her valvular heart disea se. Clinically, she has much more right heart failure than left heart failure. We will recheck an e chocardiogram. It is unclear to me when her last outpatient echocardiogram was, but we have not done one any time recently as an inpatient. She takes torsemide as an outpatient, but requires IV diures is at this time. We do not have IV torsemide in our pharmacy. So, I will switch her to IV Lasix. S he has a relatively high baseline diuretic requirement, as well as with her chronic kidney disease I think she will require a higher dose. We will start on 80 mg IV twice daily. We will follow daily w eights. 2. Permanent atrial fibrillation. Continue her Coreg and warfarin. Check an INR in the morning. 3. Chronic kidney disease. This appears at baseline. 4. Obstructive sleep apnea. Continue CPAP at night. 5. Code Status: Full. 6. Admission Status: We will admit to observation. Reevaluate tomorrow regarding ongoing need for hospitalization. 7. Deep vein thrombosis prophylaxis: She is chronically on warfarin. /[id number]/MODL
[2017-12-28] MEDS: DOCUSATE SODIUM 100 MG CAP PO SCH (21:05)
[2017-12-28] MEDS: ALLOPURINOL 100 MG TAB PO SCH (21:05)
[2017-12-28] MEDS: traMADol 50 MG TAB PO SCH (21:05)
[2017-12-29 04:01] LABS: PLATELET COUNT 127 10^3/uL (150-400)
[2017-12-29 04:09] LABS: INR 2.12 (0.83-1.16); PROTIME(PATIENT) 23.8 SEC (12.0-15.0)
[2017-12-29] MEDS: ALLOPURINOL 100 MG TAB PO SCH ×2 (08:45→22:09)
[2017-12-29] MEDS: amLODIPine BESYLATE 5 MG TAB PO SCH (08:45)
[2017-12-29] MEDS: FUROSEMIDE 100 MG/10 ML VIAL IVP SCH ×2 (08:45→16:04)
[2017-12-29] MEDS: CARVEDILOL 25 MG TAB PO SCH ×2 (08:45→17:06)
[2017-12-29] MEDS: traMADol 50 MG TAB PO SCH ×2 (08:46→22:09)
[2017-12-29] MEDS: WARFARIN SODIUM 2.5 MG TAB PO SCH (08:46)
[2017-12-29] MEDS: POTASSIUM CL 20 MEQ TAB PO SCH (08:46)
[2017-12-29] MEDS: SPIRONOLACTONE 25 MG TAB PO SCH (08:46)
[2017-12-29] MEDS ORDERED: ALTEPLASE 2 MG VIAL IVP PRN (11:28)
--- NOTE | 2017-12-29 11:55 | ASMTCASEMG ---
Living Arrangements What is your living Answers: With Spouse arrangement? Who do you live with? Type Of Residence What kind of residence do Answers: House you live in? Discharge Plan Comments Coordination Status Comments Notes: Pt is a 77 y/o female admitted for acute on chronic CHF failing. Therapies have been ordered and awaiting recommendations. Needs are TBD at this time. Pt is being followed by transitional care. CM to follow. Plan: TBD Date Signed: 12/29/2017 11:54 AM Electronically Signed By:CHERYL Pfeiffer
[2017-12-29] MEDS ORDERED: LIDOCAINE 1% 300 MG/30 ML SDV ONE (12:48)
--- NOTE | 2017-12-29 13:16 | GCON ---
[f rep st] CONSULTATION CARDIOLOGY CONSULTATION DATE OF CONSULTATION: 12/29/2017 REFERRING PHYSICIAN: Shvaon Villa MD INDICATION FOR CONSULTATION: Worsening acute on chronic systolic congestive heart failure with complaints of increasing dyspnea on exertion, shortness of breath, weight gain, and orthopnea. HISTORY OF PRESENT ILLNESS: The patient is a pleasant 77-year-old female, well known to [facility] followed by [facility] with Dr. Raciel Schaffer, who was recently discharged from [facility] on December 10, 2017, in the setting of acute on chronic systolic congestive heart failure. She states for the 1st week while she was home, she was doing well, but has began to gradually and progressively develop increasing shortness of breath, dyspnea, , and orthopnea. She sleeps at home upright in a recliner chair. In the setting of increasing symptoms, the patient was brought in through the emergency department for admission for further management of acute on chronic systolic congestive heart failure. The patient also has a known history of moderate to severe mitral and tricuspid regurgitation with moderate pulmonary hypertension with PA pressure of 58 mmHg. She has chronic atrial fibrillation, which is suboptimally rate controlled at this point. She has a known history of sleep apnea and has been compliant with CPAP. She also has a history of iron deficiency anemia of chronic disease coupled with a history of partial left nephrectomy in the setting of renal cell carcinoma with chronic renal insufficiency with baseline creatinine of 2. She is followed by Dr. Flower of [facility]. Currently, at the time of my exam, she is sitting upright in a chair. She is resting comfortably. MEDICATIONS: On admission include Coreg 25 mg p.o. b.i.d., torsemide 80 mg in the a.m. and 40 mg at noon, warfarin 2.5 mg daily, amlodipine 5 mg daily, tramadol 50 mg twice daily, vitamin D3 2000 units daily, and amlodipine 5 mg daily. ALLERGIES: To medications include morphine and penicillin. PAST MEDICAL HISTORY: 1. Clayton heart Association class 3 systolic congestive heart failure with LVEF of 28% on echocardiogram from October 2017. 2. Moderate to severe mitral and tricuspid regurgitation. 3. Moderate pulmonary hypertension with PA pulmonary pressure of 58 mmHg. 4. Chronic atrial fibrillation, suboptimally rate controlled. 5. Obstructive sleep apnea, compliant with CPAP. 6. Anemia of chronic disease. 7. Chronic renal insufficiency with baseline creatinine of 2. 8. History of renal cell carcinoma status post partial left nephrectomy. 9. Gout. PAST SURGICAL HISTORY: Includes cholecystectomy, hysterectomy, appendectomy, and left-sided partial nephrectomy. SOCIAL HISTORY: She has a remote history of smoking. She is . She lives with her . FAMILY HISTORY: Noncontributory. PHYSICAL EXAMINATION: VITAL SIGNS: Weight on admission of 67.4 kg. Blood pressure is 124/89, heart rate of 113 and irregularly irregular consistent with atrial fibrillation, respiratory rate of 22, oxygen saturation 91% on 1 L nasal cannula, temperature 36.8. GENERAL: She is awake, alert, oriented, appropriate in no acute distress. There is evidence of JVP to just below the jaw line while sitting upright. Breath sounds are diminished at the bases bilaterally with no expiratory wheeze. CARDIAC: S1, S2. Irregularly, irregular. There is a 2/6 systolic murmur audible at the LV apex. ABDOMEN: Soft, nontender. EXTREMITIES: There is evidence of generalized anasarca with pitting edema to the top of the thighs bilaterally. LABORATORY DATA: White blood cell count 4.89, hemoglobin of 11.4, hematocrit 36.6, platelets 127. Sodium 143, potassium 4.0, chloride 107, bicarb 27, BUN 52 , creatinine 1.9, magnesium 2.2, AST 54, ALT 76, albumin is low at 27. Chest x-ray demonstrates pulmonary vascular congestion in bilateral lower lobes. ECG demonstrates atrial fibrillation at 107 beats per minute with left anterior fascicular block. Poor R-wave progression and T-wave inversions in lead 1 and aVL. Echocardiogram performed at [facility] in October 2017 with LVEF of 28% with moderate to severe tricuspid and mild mitral regurgitation with PA systolic pressure 58 mmHg. IMPRESSION: 1. Acute on chronic Clayton heart Association class 3-4 systolic congestive heart failure. 2. Right-sided congestive heart failure. 3. History of atrial fibrillation suboptimally controlled. 4. Moderate to severe mitral regurgitation. 5. Moderate to severe tricuspid regurgitation. 6. Obstructive sleep apnea. 7. Chronic renal insufficiency with baseline creatinine of 2, followed by Dr. Flower of [facility]. In summary, the patient is a pleasant 77-year-old female, well-known to [facility] with acute on chronic biventricular dysfunction with [place] Heart Association class 3-4 symptoms with progressive shortness of breath, dyspnea, weight gain, and orthopnea. She was admitted to through the Emergency Department last night. I reviewed her case in detail with Dr. Schaffer. Will plan to initiate low-dose dobutamine and Lasix drip therapy for aggressive diuresis. Would also consider electrophysiology consultation for consideration of possible arteriovenous node ablation and pacer implantation in the setting of suboptimally controlled atrial fibrillation with severe left atrial enlargement. PLAN: 1. PICC line order has been placed. 2. Electrolyte replacement protocol. 3. Once PICC line is in place would start low-dose dobutamine at 5 mcg/kg per minute. 4. Initiate Lasix drip once dobutamine infusion has begun at 30 mg/hour. 5. Increase Coreg to 37.5 mg p.o. b.i.d. 6. Consider the addition of Aldactone 12.5 mg daily. 7. Encourage the patient's to bring in her CPAP. 8. Plan to have Nephrology consulted during this admission. She is followed by Dr. Flower of [facility]. 9. Will continue to follow along with her care. 45 min spent coordinating care /[id number]/MODL MTDD
--- NOTE | 2017-12-29 15:02 | HOSPPROG ---
Hospitalist Progress Note Assessment/Plan: Assessment: 77-year-old female presenting with acute systolic CHF exacerbation in the setting of severe mitral regurgitation and permanent atrial fibrillation Plan: 1. Acute systolic CHF exacerbation. New problem this provider, further workup indicated. Suspect significant right-sided component as well as significantly reduced ejection fraction, evidenced by pulmonary edema on chest x-ray, personally interpreted -getting echocardiogram to further define ejection fraction -discussed with Dr. Sha Kc after the echocardiogram, he indicates that the ejection fraction is around 28%, unclear whether this is secondary to uncontrolled atrial fibrillation, severe mitral regurgitation, or combination thereof -patient has been on a substantial dose of torsemide as an outpatient, receiving up to 160 mg daily, and she has continued to gain water weight and is not diuresing effectively -consequently, she requires inpatient hospitalization for aggressive management including increased cardiac output with IV dobutamine drip and continuous IV Lasix dosing, working with pharmacy to obtain this at this time -PICC line placement or to facilitate above -monitor strict I&Os, daily weights 2. Mitral regurgitation. Severe, unclear whether the patient will be able to stabilize enough to undergo a procedure which may provide her with some benefit , possibly mitral valve clip, but her volume status will need to be substantially improved in order for the any procedure to be of any benefit 3. Permanent atrial fibrillation. Rate has been suboptimally controlled, and we will increase her beta-haylee to carvedilol 37.5 mg twice daily and gauge effect -continue monitor on telemetry, EKG demonstrating atrial fibrillation, PVC, left anterior fascicular block, personally interpreted -continue on Coumadin, daily INR monitoring -INR 2.1 -TSH 1.4 4. Chronic kidney disease. Stage III, baseline creatinine around 2.0, patient' s renal disease is secondary to previous nephrectomy and has resulted in somewhat refractory stay to high-dose diuretics -appreciate ongoing renal consultation -monitor kidney function closely while on dobutamine drip and high-dose Lasix 5. Transaminitis. Most likely secondary to hepatic congestion in the setting of right-sided heart failure Diet. Cardiac Prophylaxis. High risk patient, currently on Coumadin Code. Full Disposition. Anticipated discharge uncertain this time, upgraded to inpatient admission status given that her anticipated length stay is greater than 48 hr for reasonable medical necessity including acute systolic congestive heart failure exacerbation requiring aggressive treatment with dobutamine and Lasix continue infusions. Subjective: Patient reports shortness of breath with ambulation, legs remain heavy Objective: Vital Signs Temp Pulse Resp BP Pulse Ox 36.5 C 99 14 112/78 97 12/29/17 12:00 12/29/17 12:00 12/29/17 12:00 12/29/17 12:00 12/29/17 12:00 Laboratory Results 12/29/17 03:36 12/29/17 03:36 12/28/17 12/29/17 12/30/17 05:59 05:59 05:59 Intake Total 400 100 Output Total 1100 725 Balance -700 -625 PT 23.8 SEC (12.0-15.0) H 12/29/17 03:36 INR 2.12 (0.83-1.16) H 12/29/17 03:36 - Physical Exam Constitutional: no apparent distress, appears nourished, not in pain, uncomfortable Cardiovascular: systolic murmur (4/6 at apex), irregularly irregular, JVD, tachycardia, edema (2+ bilateral lower extremity edema) Respiratory: reduced air movement (Bilateral bases), inspiratory crackles, No expiratory wheeze, No bronchial breath sounds, No respiratory distress Gastrointestinal: normoactive bowel sounds, soft, non-tender abdomen, no palpable masses, No distension Neurologic: AAOx3 Psychiatric: interacting appropriately, not anxious, not encephalopathic, thought process linear ICD10 Worksheet Patient Problems: Problems Problem Status Onset CHF exacerbation Acute chronic disease [facility]/transitional care Acute Kidney neoplasm Acute Hypertension Acute Diastolic CHF Acute PVC (premature ventricular contraction) Acute
[2017-12-29] MEDS: DOBUTamine/DEXTROSE 250 ML IV SCH (15:11)
--- NOTE | 2017-12-29 15:22 | PDMN ---
Medical Necessity Medical necessity: change to IP; los>2mn for acute systolic CHF exacerbation w/ pulmonary edema, severe mitral regurgitation, permanent afib and transaminitis; requires aggressive treatment w/continuous IV dobutamine and Lasix gtts; comorbid CKD; per order and progress note 12/29/17
--- NOTE | 2017-12-29 15:50 | ECHO ---
[email or web address] [address] [address] Main: [phone] Fax: [email or web address] Echocardiogram Name: JOLEEN WHITNEY MR#: [id number] Study Date: 12/29/2017 Study Time: 02:07 PM Date of : 1940 Age: 77 year(s) Height: 160 cm (63 in.) Weight: 66.23 kg (146 lb.) BSA: 1.69 m2 Gender: Female Examination: Limited Echo Indication: CHF, previous echo 11-05-17 Image Quality: Contrast: Requested by: Shavon Villa BP: 112 mmHg/78 mmHg Heart Rate: Rhythm: Indication: CHF, previous echo 11-05-17 Procedure Staff Furniture Inspector: Shameka Ramey RDCS Reading Physician: Louis Esquivel MD Requesting Provider: Conclusions: No pericardial effusion. Dilated left ventricle with ejection fraction of 20-25%. Biatrial enlargement. Moderate to severe mitral regurgitation. Severe tricuspid regurgitation with right ventricular systolic pressure a between 53 and 58 mm of mercury. Measurements: Chambers Valvular Assessment AV/MV Valvular Assessment TV/PV Normal Normal Normal Name Value Range Name Value Range Name Value Range LVDd (2D): 6.0 cm (3.9 cm-5.3 TR Vmax: 3.27 mm/s ( - ) cm) TR PGmax: 43 mmHg ( - ) EF Range: 20-25 % syst. PAP: 53 mmHg ( - ) Continued Measurements: Valvular Assessment TV/PV Name Value CVP (est.): 10 mmHg Findings: Left Ventricle: Mildly dilated left ventricle. Moderately to severely reduced systolic function. The ejection fraction is estimated to be 20-25 %. Left Atrium: The left atrium is moderately dilated. Right Atrium: The right atrium is severely dilated. Mitral Valve: Moderate to severe mitral regurgitation. Patient: JOLEEN WHITNEY Study Date: 12/29/2017 Page 1 of 2 02:07 PM Tricuspid Valve: The pulmonary artery pressure is moderately increased. RVSP is 53-58mmHG. There is torrential tricuspid regurgitation.. Pulmonic Valve: Mild pulmonic valve regurgitation is noted. IVC: No collapse of IVC.. Pericardium: Trivial pericardial effusion. (No Signature Object) Patient: JOLEEN WHITNEY Study Date: 12/29/2017 Page 2 of 2 02:07 PM [id number]
[2017-12-29] MEDS: FUROSEMIDE 100 MG in D5W 100 ML IV SCH (17:06)
--- NOTE | 2017-12-29 18:02 | GCON ---
[f rep st] CONSULTATION NEPHROLOGY CONSULTATION DATE OF CONSULTATION: 12/29/2017 REASON FOR CONSULTATION: Chronic kidney disease, status post nephrectomy, congestive heart failure. HISTORY OF PRESENT ILLNESS: This is a delightful 77-year-old female with a past medical history sign ificant for several issues, including congestive heart failure relating to severe valvular heart dise ase, atrial fibrillation, obstructive sleep apnea, and chronic kidney disease, who now presents with worsening volume overload and heart failure. The patient and her are present at the time of interview. The patient is an excellent historian. The patient is followed by my partner, Dr. Rustam Flower. Dr. Flower last saw her in the office on . She is known to have premature onset of hypertension, and also had vesicoureteral reflux. I 2013, she underwent a partial nephrectomy. Presently, she has nephrotic range proteinuria, and a b aseline creatinine near 2. On the most recent visit, her angiotensin receptor haylee was discontinu ed in hopes of assisting with better diuresis and maintenance of volume status. The patient was admitted in late November and discharged December 10. This was also for CHF exacerbation , and she was successfully diuresed. Unfortunately, during the week leading to the present admission , she began again having significant fluid gain, and worsening dyspnea and orthopnea. Relating to , she was readmitted, and is now on dobutamine and getting additional diuresis. The patient states she is on a low-sodium diet. She states she restricts her fluid, but cannot give me a clear indication of the amount of fluid she does drink on a daily basis. As related to the abov e issues, we are asked by Dr. Kc to assist the patient's renal diagnosis and management. PAST MEDICAL HISTORY: 1. Chronic kidney disease with a baseline creatinine of 2. 2. She has a history of hypertension as well as reflux. 3. She has proteinuria and biopsy documented focal segmental glomerulosclerosis. 4. Premature onset of hypertension. 5. Secondary hyperparathyroidism. 6. Diastolic dysfunction, severe tricuspid and mitral regurgitation, and pulmonary hypertension with ascites and edema. 7. Gout. 8. Degenerative joint disease. 9. Hyperlipidemia. 10. History of stable pancreatic cyst. 11. History of elevated free light chain ratio. 12. History of hyperkalemia due to combination use of ARB, spironolactone. 13. Retinal vein occlusion. 14. Obstructive sleep apnea on CPAP. 15. Renal cell carcinoma. PAST SURGICAL HISTORY: Includes cholecystectomy, hysterectomy, section, bladder suspension, DaVinci assisted partial left nephrectomy in 2014. FAMILY HISTORY: Positive for hypertension, cerebrovascular accident. SOCIAL HISTORY: The patient is and supportive is at bedside. 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 She rarely drinks a glass of wine. ALLERGIES: Penicillin G. REVIEW OF SYSTEMS: A 12 systems review was obtained. It is positive for shortness of breath, and es pecially orthopnea. She is not having chest pain. She does have ascites. She has worsening lower e xtremity edema. PHYSICAL EXAM: GENERAL: At time of exam, the patient is appropriate and alert. VITAL SIGNS: Tempera ture afebrile, blood pressure 124/89, heart rate 113. EYES: Sclerae clear. OROPHARYNX: Clear. NEC K: The patient has jugular venous distention. LUNGS: Diminished throughout all lung tabares, but no rales. CARDIOVASCULAR: Irregular rhythm, tachycardic, positive systolic murmur. ABDOMEN: Protuber ant with ascites, no evidence of peritoneal tenderness. /RECTAL: Deferred. EXTREMITIES: 2 to 3+ a nkle edema is noted. INTEGUMENT: Generally clear. NEUROLOGIC: No focal findings. LABORATORY STUDIES: White count 4.8, hematocrit 36.6, platelets 127. Sodium 134, potassium 4.0, bic arb 27, BUN 52, creatinine 1.9, calcium 8.3. Liver function tests mildly elevated, AST 54, ALT 76, a lbumin 2.7. IMPRESSION: 1. Heart failure exacerbation. This is believed to be due to worsening heart function in the settin g of severe valvular dysfunction. It is also exacerbated by her atrial fibrillation. For now, the pl an is to initiate dobutamine and attempt additional diuresis. The hope at the end of this is that fo llowing volume reduction, she may be cardioverted back into normal sinus rhythm. She is thought to b e at high risk for valve repair surgery. 2. Chronic kidney disease. The patient's creatinine is within her baseline. We will monitor this i n the setting of diuresis, and follow her electrolytes closely. 3. Hypoalbuminemia. This appears to be progressively worsening. I will re-quantitate her urine pro tein. I will also recheck her monoclonal proteins. 4. Anemia. This appears appropriate for her level of renal function. She is not a candidate for an NAV at the present time. Thank you for allowing us participate in this very pleasant lady. We will continue following closely with you. /[id number]/MODL
[2017-12-29] MEDS: DOCUSATE SODIUM 100 MG CAP PO SCH (22:10)
[2017-12-30] MEDS: ONDANSETRON 4 MG/2 ML VIAL IVP PRN (02:15)
[2017-12-30 06:53] LABS: INR 2.25 (0.83-1.16); PROTIME(PATIENT) 24.9 SEC (12.0-15.0)
[2017-12-30] MEDS: FUROSEMIDE 100 MG in D5W 100 ML IV SCH ×2 (08:06→17:44)
--- NOTE | 2017-12-30 08:49 | PDCARPN ---
Cardiology Progress Note Assessment/Plan: Assessment: -cardiomyopathy with EF of 20-25% on echocardiogram performed yesterday -moderate to severe mitral regurgitation- Moderate to severe tricuspid regurgitation Moderate pulmonary hypertension with RV systolic pressure between 53 and 58 mm of mercury Chronic atrial fibrillation suboptimally controlled with rates in the 90s 2. Low 100s Chronic renal insufficiency with baseline creatinine of 2 Plan: -continue dobutamine at 5 micrograms/kilogram per minute -continue Lasix drip -electrolyte replacement protocol -in the setting of ongoing uncontrolled atrial fibrillation would consider AV node ablation and biventricular pacer 12/30/17 08:47 Subjective: Mrs. Patel is feeling well this morning. She notes a decline in shortness of breath. She notes decrease in lower extremity edema. She is currently on dobutamine at 5 micrograms/kilogram per minute and Lasix drip. Weight is down 2 kg. Creatinine is stable at 1.8 yesterday[place] [address]. Magnesium within normal limits. Potassium 3.5. Atrial fibrillation in the 90s to low 100s. Remains on Coreg 37.5 mg p.o. B.i.d.. No events on telemetry overnight. Of note, albumin remains low at 2.4. Will discuss with Dr. Deleon Appreciate the consultation from of Neophrology and Dr. Olguin from Medicine Service. Reviewed/Discussed With: multidisciplinary team Objective: Vital Signs (8 Hrs) Temp Pulse Resp BP Pulse Ox 12/30/17 08:00 36.8 C 113 H 12 119/86 H 96 12/30/17 04:00 36.8 C 98 20 113/75 94 Intake/Output (24 Hrs) 12/29/17 12/30/17 12/31/17 05:59 05:59 05:59 Intake Total 1007.0 Output Total 3650 300 Balance -2643.0 -300 Intake: Oral (ml) 720 IV Infused (ml) 287.0 DOBUTamine/DEXTROSE 250 146.6 ml @ As Directed IV CONT FRANKLYN Rx#:[id number] Furosemide 100 mg In D5w 140.4 100 ml @ Titrate IV CONT FRANKLYN Rx#:[id number] Output: Urine (ml) 3650 300 Bedside Commode 1400 300 Toilet 2250 Other: Weight 65.7 kg Number of Voids Bedside Commode 2 Toilet 1 Result Diagrams: 12/29/17 03:36 12/30/17 06:20 - Physical Exam Constitutional: WDWN Cardiovascular: irregularly irregular, other (2+ pitting edema) ICD10 Worksheet Patient Problems: Problems Problem Status Onset CHF exacerbation Acute Diastolic CHF Acute Hypertension Acute Kidney neoplasm Acute PVC (premature ventricular contraction) Acute chronic disease mgmt/transitional care Acute
[2017-12-30] MEDS: traMADol 50 MG TAB PO SCH ×2 (09:21→21:10)
[2017-12-30] MEDS: ALLOPURINOL 100 MG TAB PO SCH ×2 (09:21→21:10)
[2017-12-30] MEDS: SPIRONOLACTONE 25 MG TAB PO SCH (09:21)
[2017-12-30] MEDS: amLODIPine BESYLATE 5 MG TAB PO SCH (09:21)
[2017-12-30] MEDS: POTASSIUM CL 20 MEQ TAB PO SCH (09:21)
[2017-12-30] MEDS: CARVEDILOL 25 MG TAB PO SCH ×2 (09:21→17:14)
[2017-12-30] MEDS: WARFARIN SODIUM 2.5 MG TAB PO SCH (09:22)
--- NOTE | 2017-12-30 13:26 | SOAPPROG ---
SOAP Progress Note Assessment/Plan: Assessment: CKD 4, creat about at her baseline A-Fib: ratecontrolled CHF, on dobutamine and furosemide, weight down about 6 pounds today SOB: overall much better Plan: continue diuresis evaluating proteinuria possible pacer on Thursday per patient report 12/30/17 13:23 Subjective: up to chair sob better no cp nausea or vomiting spirits good tired as not sleeping much from diuresis Objective: Vital Signs Temp Pulse Resp BP Pulse Ox 36.7 C 97 17 112/83 H 97 12/30/17 12:00 12/30/17 12:00 12/30/17 12:00 12/30/17 12:00 12/30/17 12:00 Laboratory Results 12/30/17 06:20 12/29/17 12/30/17 12/31/17 05:59 05:59 05:59 Intake Total 1007.0 Output Total 3650 550 Balance -2643.0 -550 PT 24.9 SEC (12.0-15.0) H 12/30/17 06:20 INR 2.25 (0.83-1.16) H 12/30/17 06:20 Physical Exam - Physical Exam General Appearance: WD/WN, alert, thin Respiratory: rales, No rhonchi, No wheezing Cardiac/Chest: edema, irregularly irregular, No friction rub Abdomen: normal bowel sounds, non-tender, soft Skin: warm/dry Extremities: swelling Neuro/Psych: alert, normal mood/affect, oriented x 3 ICD10 Worksheet Patient Problems: Problems Problem Status Onset CHF exacerbation Acute Diastolic CHF Acute Hypertension Acute Kidney neoplasm Acute PVC (premature ventricular contraction) Acute chronic disease mgmt/transitional care Acute
[2017-12-30] MEDS: DOBUTamine/DEXTROSE 250 ML IV SCH (13:58)
--- NOTE | 2017-12-30 18:55 | HOSPPROG ---
Hospitalist Progress Note Assessment/Plan: Assessment: 77-year-old female presenting with acute systolic CHF exacerbation in the setting of severe mitral regurgitation and permanent atrial fibrillation Plan: 1. Acute systolic CHF exacerbation. Suspect significant right-sided component as well as significantly reduced ejection fraction, evidenced by pulmonary edema on chest x-ray, also affected by her ongoing poorly controlled Afib -EF 20s%, ongoing hypervolemia on exam -net neg 3.3L o/n on lasix gtt 10/hr+dobutamine, d/w Dr. Kc and he recommends continuing at this rate, gauging effect, and possibly increasing tomorrow -replete K under direction of renal -Dr. Kc has had conversation w/ patient regarding how this condition can be ultimately fatal if additional aggressive measures are not considered and pursued in the immediate future 2. Mitral regurgitation. Severe, unclear whether the patient will be able to stabilize enough to undergo a procedure which may provide her with some benefit , possibly mitral valve clip -patient would like to d/w Dr. Patel, notified 3. Permanent atrial fibrillation. Rate has been suboptimally controlled, and we increased her beta-haylee to carvedilol 37.5 mg twice daily, remains in Afib on tele w/ rate 100-110 (personally interpreted) -d/w Dr. Kc, he advises EP amanda w/ Dr. Davison tomorrow to consider AV node ablation and BiV pacer 4. Chronic kidney disease. Stage III, baseline creatinine around 2.0, patient' s renal disease is secondary to previous nephrectomy and has resulted in somewhat refractory stay to high-dose diuretics -appreciate ongoing renal consultation -monitor kidney function closely while on dobutamine drip and high-dose Lasix 5. Transaminitis. Most likely secondary to hepatic congestion in the setting of right-sided heart failure Diet. Cardiac Prophylaxis. High risk patient, currently on Coumadin Code. Full Disposition. Anticipated discharge uncertain this time, pending improvements in above. Patient would like to get home w/ home care ultimately. High medical complexity, high risk patient for worsening morbidity and/or mortality secondary to the issues outlined above. Subjective: Patient reports that her shortness of breath and weight are improving with current intervention Objective: Vital Signs Temp Pulse Resp BP Pulse Ox 36.9 C 87 16 106/69 94 12/30/17 15:22 12/30/17 15:22 12/30/17 15:22 12/30/17 15:22 12/30/17 15:22 Laboratory Results 12/30/17 06:20 12/29/17 12/30/17 12/31/17 05:59 05:59 05:59 Intake Total 1007.0 563 Output Total 3650 1350 Balance -2643.0 -787 PT 24.9 SEC (12.0-15.0) H 12/30/17 06:20 INR 2.25 (0.83-1.16) H 12/30/17 06:20 - Physical Exam Constitutional: no apparent distress, not in pain, chronically ill appearing, No uncomfortable Cardiovascular: systolic murmur (III/ at apex), irregularly irregular, tachycardia, edema (2+ bilat LE) Respiratory: inspiratory crackles (bilat bases), No expiratory wheeze, No bronchial breath sounds, No respiratory distress Gastrointestinal: normoactive bowel sounds, soft, non-tender abdomen, no palpable masses, distension (mild-moderate) Neurologic: AAOx3, sensation intact bilaterally, No weakness Psychiatric: interacting appropriately, not anxious, not encephalopathic, thought process linear ICD10 Worksheet Patient Problems: Problems Problem Status Onset CHF exacerbation Acute chronic disease mgmt/transitional care Acute Kidney neoplasm Acute Hypertension Acute Diastolic CHF Acute PVC (premature ventricular contraction) Acute
[2017-12-30] MEDS: DOCUSATE SODIUM 100 MG CAP PO SCH (21:10)
[2017-12-31 05:53] LABS: INR 2.12 (0.83-1.16); PROTIME(PATIENT) 23.8 SEC (12.0-15.0)
[2017-12-31] MEDS: CARVEDILOL 25 MG TAB PO SCH ×2 (08:39→18:28)
[2017-12-31] MEDS: SPIRONOLACTONE 25 MG TAB PO SCH (08:40)
[2017-12-31] MEDS: ALLOPURINOL 100 MG TAB PO SCH ×2 (08:41→20:28)
[2017-12-31] MEDS: traMADol 50 MG TAB PO SCH ×2 (08:41→20:28)
[2017-12-31] MEDS: POTASSIUM CL 20 MEQ TAB PO SCH ×2 (08:41→20:28)
[2017-12-31] MEDS: amLODIPine BESYLATE 5 MG TAB PO SCH (08:41)
[2017-12-31] MEDS ORDERED: WARFARIN SODIUM 5 MG TAB PO SCH (09:00)
[2017-12-31] MEDS: FUROSEMIDE 100 MG in D5W 100 ML IV SCH (11:10)
--- NOTE | 2017-12-31 12:24 | PDCARPN ---
Cardiology Progress Note Chief Complaint: SOB/Fatigue. Assessment/Plan: Assessment: -cardiomyopathy with EF of 20-25% -moderate to severe mitral regurgitation- -Moderate to severe tricuspid regurgitation -Moderate pulmonary hypertension with RV systolic pressure between 53 and 58 mm of mercury -Chronic atrial fibrillation suboptimally controlled with rates in the 90s 2. Low 100s -Chronic renal insufficiency with baseline creatinine of 2 Plan: -Increase dobutamine to 10 micrograms/kilogram per minute -Increase Lasix drip to 20 mg/hr -Decrease Coreg to 25 mg bid -electrolyte replacement protocol -Seen by Dr. Davison in consultation for AV node ablation and biventricular pacer next 2017 -Will discuss with her primary cigarette tester Dr. Patel 12/31/17 12:24 Subjective: Mrs. Patel is feeling fatigued today. She remains on lasix gtt at 10 mg/hr and dobutamine 5 mcg/kg/min. She is negative 1.1 L over the last 24 hours (3.3L the previous 24 hr). Her weight has decreased from 65 Kg to 64.9 kg over the last 24 hrs. Cr remains stable at 1.8. Tele demonstrates Afib with rates in mid 90's to 100's. Lower extrem edema improving. Reviewed/Discussed With: multidisciplinary team Time Spent With Patient: 20 min Objective: Vital Signs (8 Hrs) Temp Pulse Resp BP Pulse Ox 12/31/17 11:37 36.6 C 96 18 117/85 H 94 12/31/17 11:02 16 96 12/31/17 08:41 122/85 H 12/31/17 08:39 100 122/85 H 12/31/17 07:21 36.7 C 102 H 17 108/82 H 93 Intake/Output (24 Hrs) 12/30/17 12/31/17 01/01/18 05:59 05:59 05:59 Intake Total 1007.0 1197 Output Total 3650 2300 945 Balance -2643.0 -1103 -945 Intake: Oral (ml) 720 750 IV Infused (ml) 287.0 447 DOBUTamine/DEXTROSE 250 146.6 221 ml @ As Directed IV CONT FRANKLYN Rx#:[id number] Furosemide 100 mg In D5w 140.4 226 100 ml @ Titrate IV CONT FRANKLYN Rx#:[id number] Output: Urine (ml) 3650 2300 945 Bedside Commode 1400 1500 945 Toilet 2250 800 Other: Weight 65.7 kg 65 kg 64.9 kg Number of Voids Bedside Commode 2 4 1 Toilet 1 Result Diagrams: 12/29/17 03:36 12/31/17 05:15 - Physical Exam Cardiovascular: irregularly irregular Respiratory: clear to auscultate bilat Neurologic: AAOx3, CN II-XII grossly intact Psychiatric: cooperative, not anxious Lymph, Heme, Immunologic: no lymphadenopathy ICD10 Worksheet Patient Problems: Problems Problem Status Onset CHF exacerbation Acute Diastolic CHF Acute Hypertension Acute Kidney neoplasm Acute PVC (premature ventricular contraction) Acute chronic disease mgmt/transitional care Acute
--- NOTE | 2017-12-31 14:35 | ASMTCMCOM ---
CM Note CM Note Notes: Pts case discussed in morning rounds. Therapies are recommending home independent. Pt will most likely not have any d/c needs when medically stable. CM available for changes. Plan: Independent Date Signed: 12/31/2017 02:34 PM Electronically Signed By:CHERYL Pfeiffer
--- NOTE | 2017-12-31 15:10 | HOSPPROG ---
Hospitalist Progress Note Assessment/Plan: 77-year-old female presenting with acute systolic CHF exacerbation in the setting of severe mitral regurgitation and permanent atrial fibrillation. Patient is new to me today 1. Acute systolic CHF exacerbation. Suspect significant right-sided component as well as significantly reduced ejection fraction, evidenced by pulmonary edema on chest x-ray, also affected by her ongoing poorly controlled Afib -EF 20s%, ongoing hypervolemia on exam -net neg 3.3L o/n on lasix gtt 10/hr+dobutamine, d/w Dr. Kc and he recommends continuing at this rate, gauging effect, and possibly increasing tomorrow -replete K under direction of renal -Dr. Kc has had conversation w/ patient regarding how this condition can be ultimately fatal if additional aggressive measures are not considered and pursued in the immediate future 2. Mitral regurgitation. Severe, unclear whether the patient will be able to stabilize enough to undergo a procedure which may provide her with some benefit , possibly mitral valve clip -patient would like to d/w Dr. Patel, notified 3. Permanent atrial fibrillation. Rate has been suboptimally controlled, and we increased her beta-haylee to carvedilol 37.5 mg twice daily, remains in Afib on tele w/ rate 100-110 (personally interpreted). Rhytm showed one episode of NSVT for 20 beats, patient was asymtomatic -d/w Dr. Kc, he advises EP amanda w/ Dr. Davison tomorrow to consider AV node ablation and BiV pacer 4. Chronic kidney disease. Stage III, baseline creatinine around 2.0, patient' s renal disease is secondary to previous nephrectomy and has resulted in somewhat refractory stay to high-dose diuretics -appreciate ongoing renal consultation -monitor kidney function closely while on dobutamine drip and high-dose Lasix 5. Transaminitis. Most likely secondary to hepatic congestion in the setting of right-sided heart failure Diet. Cardiac Prophylaxis. High risk patient, currently on Coumadin Code. Full Subjective: No chest pain or shortness of breath though the patient has been minimally active and only walking in the room. Objective: Vital Signs Temp Pulse Resp BP Pulse Ox 36.6 C 96 18 117/85 H 94 12/31/17 11:37 12/31/17 11:37 12/31/17 11:37 12/31/17 11:37 12/31/17 11:37 Laboratory Results 12/31/17 05:15 12/30/17 12/31/17 01/01/18 05:59 05:59 05:59 Intake Total 1007.0 1197 Output Total 3650 2300 1195 Balance -2643.0 -1103 -1195 PT 23.8 SEC (12.0-15.0) H 12/31/17 05:15 INR 2.12 (0.83-1.16) H 12/31/17 05:15 - Time Spent With Patient Time Spent with Patient: greater than 35 minutes Time Spent with Patient: Greater than 35 minutes spent on this patients care, greater than 50% of time spent counseling, educating, and coordinating care regarding the above mentioned plan. - Pending Discharge Pending Discharge Within 24 Hours: No Pending Discharge Within 48 Hours: No - Physical Exam Constitutional: no apparent distress, chronically ill appearing Eyes: PERRL, anicteric sclera Ears, Nose, Mouth, Throat: moist mucous membranes, hearing normal Cardiovascular: irregularly irregular, other (There is 2 to 3+ peripheral nontender pitting edema to the thighs. Weight has declined approximately 2 kg since admission with a strongly negative MOISÉS on the dobutamine and Lasix drip) Respiratory: no respiratory distress, no rales or rhonchi, clear to auscultation Gastrointestinal: normoactive bowel sounds, soft, non-tender abdomen, no palpable masses Genitourinary: no bladder fullness Skin: warm, other Musculoskeletal: generalized weakness, other (2 to 3+ soft nontender pitting and edema to the thighs.) Neurologic: AAOx3, CN II-XII Intact ICD10 Worksheet Patient Problems: Problems Problem Status Onset CHF exacerbation Acute chronic disease mgmt/transitional care Acute Kidney neoplasm Acute Hypertension Acute Diastolic CHF Acute PVC (premature ventricular contraction) Acute
[2017-12-31] MEDS ORDERED: D5W IV SCH ×2 (16:00→17:30)
[2017-12-31] MEDS ORDERED: FUROSEMIDE IV SCH ×2 (16:00→17:30)
[2017-12-31] MEDS: DOBUTamine/DEXTROSE 250 ML IV SCH (16:05)
[2017-12-31] MEDS: ONDANSETRON 4 MG/2 ML VIAL IVP PRN (17:53)
[2017-12-31] MEDS ORDERED: POTASSIUM CL 20 MEQ TAB PO ONE (18:00)
[2017-12-31] MEDS ORDERED: ONDANSETRON 4 MG/2 ML VIAL IVP ONE (20:00)
[2017-12-31] MEDS: DOCUSATE SODIUM 100 MG CAP PO SCH (20:28)
[2018-01-01 04:44] LABS: INR 2.11 (0.83-1.16); PROTIME(PATIENT) 23.7 SEC (12.0-15.0)
[2018-01-01] MEDS: SPIRONOLACTONE 25 MG TAB PO SCH (08:53)
[2018-01-01] MEDS: amLODIPine BESYLATE 5 MG TAB PO SCH (08:54)
[2018-01-01] MEDS: POTASSIUM CL 20 MEQ TAB PO SCH ×2 (08:55→20:34)
[2018-01-01] MEDS: ALLOPURINOL 100 MG TAB PO SCH ×2 (08:55→20:34)
[2018-01-01] MEDS: WARFARIN SODIUM 2.5 MG TAB PO SCH (08:56)
[2018-01-01] MEDS: CARVEDILOL 25 MG TAB PO SCH ×2 (08:56→17:03)
[2018-01-01] MEDS: traMADol 50 MG TAB PO SCH ×2 (09:13→20:34)
[2018-01-01] MEDS: ONDANSETRON 4 MG/2 ML VIAL IVP PRN ×2 (09:40→13:28)
--- NOTE | 2018-01-01 12:36 | PDCARPN ---
Cardiology Progress Note Assessment/Plan: Assessment: -cardiomyopathy with EF of 20-25% -moderate to severe mitral regurgitation- -Moderate to severe tricuspid regurgitation -Moderate pulmonary hypertension with RV systolic pressure between 53 and 58 mm of mercury -Chronic atrial fibrillation suboptimally controlled with rates in the 90s 2. Low 100s -Chronic renal insufficiency with baseline creatinine of 2 -nonsustained ventricular tachycardia noted on telemetry 01/01/2018 at 7:50 a.m.. Asymptomatic. Plan: -decreased dobutamine to 5 micrograms/kilogram per minute -discontinue Lasix drip -scheduled dose of Lasix: 80 mg IV t.i.d. -continue Coreg to 25 mg bid -electrolyte replacement protocol -Seen by Dr. Davison in consultation for AV node ablation and biventricular pacer next 2017 -consider left and right heart catheterization 1 patient is off of anticoagulation next week at time of admission for AV node ablation and pacemaker in the setting of cardiomyopathy and runs of nonsustained ventricular tachycardia -case reviewed with her primary metal control coordinator Dr. Patel 12/31/17 12:24 01/01/18 12:34 Subjective: Sandra complains of nausea and vomiting that began last night with dinner. She had further episodes of nausea and vomiting after breakfast this morning. She notes that she has experienced nausea and vomiting in the past with increased dose of Lasix. Yesterday I increased Lasix drip to 20 milligrams/hour and increase dobutamine at 10 micrograms/kilogram per minute. Her weight is decreased an additional kg and she currently weighs 64 kg. Weight on admission was 67.4 kg. Electrolytes remain within normal limits with potassium of 4.3 and magnesium of 2.1. Creatinine has decreased and is currently 1.7 %period% creatinine was 1.9 on admission. Lower extremity edema continues to improve. Of note, telemetry demonstrates approximately a 4-5 second run of nonsustained ventricular tachycardia at approximately 7:50 a.m. This morning. This episode was asymptomatic. She remains in atrial fibrillation. Note Coreg was decreased to 25 mg p.o. B.i.d. Yesterday Reviewed/Discussed With: multidisciplinary team Objective: Vital Signs (8 Hrs) Temp Pulse Resp BP Pulse Ox 01/01/18 12:00 99 16 137/99 H 97 01/01/18 08:00 36.3 C 94 16 123/90 H 94 Intake/Output (24 Hrs) 12/31/17 01/01/18 01/02/18 05:59 05:59 05:59 Intake Total 1197 1796 350 Output Total 2300 3145 560 Balance -1103 -1349 -210 Intake: Oral (ml) 750 1565 250 IV Infused (ml) 447 231 100 DOBUTamine/DEXTROSE 250 221 67 ml @ As Directed IV CONT FRANKLYN Rx#:[id number] Furosemide 100 mg In D5w 226 164 100 ml @ Titrate IV CONT FRANKLYN Rx#:[id number] Furosemide 500 mg In D5w 100 500 ml @ 20 mls/hr IV CONT FRANKLYN Rx#:[id number] Output: Urine (ml) 2300 3145 560 Bedside Commode 1500 3145 360 Toilet 800 200 Other: Weight 65 kg 64 kg Intake Quantity Yes Yes Sufficient Output Comment Bedside Commode 250+ 400 Number of Voids Bedside Commode 4 1 1 Result Diagrams: 12/29/17 03:36 01/01/18 04:10 - Physical Exam Constitutional: WDWN Cardiovascular: no rubs, no gallops (2/6 systolic murmur at apex), irregularly irregular Musculoskeletal: no muscular tenderness Neurologic: AAOx3, CN II-XII grossly intact Psychiatric: cooperative ICD10 Worksheet Patient Problems: Problems Problem Status Onset CHF exacerbation Acute Diastolic CHF Acute Hypertension Acute Kidney neoplasm Acute PVC (premature ventricular contraction) Acute chronic disease mgmt/transitional care Acute
--- NOTE | 2018-01-01 13:07 | SOAPPROG ---
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 CKD Stage III -unilateral kidney -Cr stable at 1.7 today, near baseline -monitor I/O's, avoid nephrotoxins HTN/vol: -controlled on amlodipine and Coreg -diuretic as below H/o CM with EF 20-25% and MR/TR -dobutamine 5mcg/kg -switched to lasix 80mg IV tid per cardiology -possible AV ablation 01/07 -will need to switch to po lasix and obtain 3h post Na for goal 60-80mEq if discharging soon BMD/lytes -calcium corrects with albumin -monitor lytes, on K+ repletion Please contact if ?s, #[phone]. 01/01/18 13:28 Subjective: UO>3L. No events overnight. Patient feeling well, up to chair. Objective: Vital Signs Temp Pulse Resp BP Pulse Ox 36.3 C 99 16 137/99 H 97 01/01/18 08:00 01/01/18 12:00 01/01/18 12:00 01/01/18 12:00 01/01/18 12:00 Laboratory Results 01/01/18 04:10 12/31/17 01/01/18 01/02/18 05:59 05:59 05:59 Intake Total 1197 1796 350 Output Total 2300 3145 860 Balance -1103 -1349 -510 PT 23.7 SEC (12.0-15.0) H 01/01/18 04:10 INR 2.11 (0.83-1.16) H 01/01/18 04:10 Physical Exam - Physical Exam General Appearance: WD/WN, alert, no apparent distress EENT: PERRL/EOMI, normal ENT inspection, pharynx normal Neck: non-tender, full range of motion, supple Respiratory: chest non-tender, lungs clear, normal breath sounds Cardiac/Chest: normal peripheral pulses, regular rate, rhythm, edema Abdomen: normal bowel sounds, non-tender, soft, distended Skin: normal color, warm/dry Neuro/Psych: no motor/sensory deficits, alert, normal mood/affect, oriented x 3 ICD10 Worksheet Patient Problems: Problems Problem Status Onset CHF exacerbation Acute Diastolic CHF Acute Hypertension Acute Kidney neoplasm Acute PVC (premature ventricular contraction) Acute chronic disease mgmt/transitional care Acute
[2018-01-01] MEDS: FUROSEMIDE 100 MG/10 ML VIAL IVP SCH ×2 (13:26→20:35)
--- NOTE | 2018-01-01 14:23 | HOSPPROG ---
Hospitalist Progress Note Assessment/Plan: 77-year-old female presenting with acute systolic CHF exacerbation in the setting of severe mitral regurgitation and permanent atrial fibrillation. Patient undergoing diuresis with IV Lasix and IV dobutamine and has been slowly and progressively diuresing nicely without compromised renal function. 1. Acute systolic CHF exacerbation. Known moderate to severe mitral regurg and tricuspid regurg with any EF of approximately 20%. She has been diuresing nicely on IV dobutamine and Lasix and will be changed to pulse dose Lasix at a reduced dose of dobutamine now. 2. Mitral regurgitation. Severe, unclear whether the patient will be able to stabilize enough to undergo a procedure which may provide her with some benefit , possibly mitral valve clip -patient would like to d/w Dr. Patel, notified 3. Permanent atrial fibrillation. Rate has been suboptimally controlled. Coreg will be continued at 25 mg twice daily. Next week patient is considered for AV node ablation and by a ventricular pacemaker for an appointment on 2017. Cardiology is considering a cardiac catheterization if the patient is off anticoagulation for her AV node ablation and pacemaker placement. 4. Chronic kidney disease. Stage III, baseline creatinine around 2.0, patient' s renal disease is secondary to previous nephrectomy and has resulted in somewhat refractory stay to high-dose diuretics. Renal function is stable with the IV Lasix. 5. Anticoagulation on Coumadin is therapeutic. 6. Transaminitis. Most likely secondary to hepatic congestion in the setting of right-sided heart failure 7. Acute nausea, new problem: This is likely secondary to strong beta stimulation with dobutamine causing vagal stimulation and gastric distention. Is currently successfully treated with Zofran. Diet. Cardiac Prophylaxis. High risk patient, currently on Coumadin Code. Full Plan: Per above Time: 45 min. Patient was interviewed with staff in the room and all questions were answered of the patient and . Case discussed with Cardiology and Dr. Sha lockhart Subjective: Reports she is having some nausea and is treated with Zofran. Objective: Vital Signs Temp Pulse Resp BP Pulse Ox 36.3 C 99 16 137/99 H 97 01/01/18 08:00 01/01/18 12:00 01/01/18 12:00 01/01/18 12:00 01/01/18 12:00 Laboratory Results 01/01/18 04:10 12/31/17 01/01/18 01/02/18 05:59 05:59 05:59 Intake Total 1197 1796 600 Output Total 2300 3145 1360 Balance -1103 -6169 -760 PT 23.7 SEC (12.0-15.0) H 01/01/18 04:10 INR 2.11 (0.83-1.16) H 01/01/18 04:10 - Time Spent With Patient Time Spent with Patient: greater than 35 minutes Time Spent with Patient: Greater than 35 minutes spent on this patients care, greater than 50% of time spent counseling, educating, and coordinating care regarding the above mentioned plan. - Pending Discharge Pending Discharge Within 24 Hours: No Pending Discharge Within 48 Hours: No - Physical Exam Constitutional: no apparent distress, chronically ill appearing Eyes: PERRL Ears, Nose, Mouth, Throat: moist mucous membranes, hearing normal Cardiovascular: irregularly irregular, tachycardia Respiratory: no respiratory distress, no rales or rhonchi, clear to auscultation Gastrointestinal: normoactive bowel sounds, soft, non-tender abdomen Genitourinary: no bladder fullness Skin: warm Musculoskeletal: generalized weakness Neurologic: AAOx3, CN II-XII Intact ICD10 Worksheet Patient Problems: Problems Problem Status Onset CHF exacerbation Acute chronic disease mgmt/transitional care Acute Kidney neoplasm Acute Hypertension Acute Diastolic CHF Acute PVC (premature ventricular contraction) Acute
[2018-01-01] MEDS: DOCUSATE SODIUM 100 MG CAP PO SCH (20:34)
[2018-01-02] MEDS: DOBUTamine/DEXTROSE 250 ML IV SCH (01:56)
[2018-01-02 03:58] LABS: INR 2.19 (0.83-1.16); PROTIME(PATIENT) 24.4 SEC (12.0-15.0)
[2018-01-02] MEDS: FUROSEMIDE 100 MG/10 ML VIAL IVP SCH ×3 (06:09→22:28)
[2018-01-02] MEDS: ALLOPURINOL 100 MG TAB PO SCH ×2 (10:00→22:27)
[2018-01-02] MEDS: WARFARIN SODIUM 2.5 MG TAB PO SCH (10:00)
[2018-01-02] MEDS: CARVEDILOL 25 MG TAB PO SCH ×2 (10:00→18:00)
--- NOTE | 2018-01-02 10:00 | SOAPPROG ---
DEBRA Progress Note Assessment/Plan: 1. Heart failure with reduced ejection fraction. 2. Acute on chronic systolic heart failure 3. Weakness 4. Nausea She is doing well. She is losing weight and edema. She had switched to Lasix and perhaps tomorrow we will switch to torsemide We will try to get her up bioavailability We shall see how the Lasix goes at 1st. We spent 0.5 hr talking about end of life care. We have talked about device therapy for heart failure. She does not want ICD. She does not want any mechanical cardiac support that would be available at the [facility]. He is going to continue to try to exercise more. A deteriorates she will let us know. She continues to have nausea and I believe this is due to her heart failure. She has been evaluated by the GI service all her questions have Plan: 01/02/18 10:05 Subjective: She continues to feel tired. She is rid of breath She has had no fever chills or cough She does not have pleuritic chest pain She does not jaw pain She does not have on the vomiting day 9 she is feeling nauseated. She has no on lightheadedness or dizziness She is having palpitations lot a she is not having headaches or stiff neck. She is sleeping in a chair She is back. She is not walk around much. Objective: Vital Signs Temp Pulse Resp BP Pulse Ox 36.9 C 99 11 L 111/85 H 97 01/02/18 07:21 01/02/18 07:21 01/02/18 07:21 01/02/18 07:21 01/02/18 07:21 Laboratory Results 01/02/18 03:41 01/01/18 01/02/18 01/03/18 05:59 05:59 05:59 Intake Total 1796 1305 Output Total 3145 2960 Balance -1349 -1655 PT 24.4 SEC (12.0-15.0) H 01/02/18 03:41 INR 2.19 (0.83-1.16) H 01/02/18 03:41 Laboratory Tests 12/05/17 12/06/17 12/06/17 05:15 10:15 10:15 WBC 5.36 Hct 33.6 L 32.8 L Plt Count INR Sodium Potassium Chloride Carbon Dioxide Anion Gap BUN Creatinine Glucose Calcium Phosphorus AST ALT Troponin I NT-Pro-B Natriuret Pep Albumin Amylase 73 Lipase 127 TSH 12/09/17 12/09/17 12/28/17 04:25 04:25 16:45 WBC Hct 35.6 L Plt Count 137 L INR 3.36 H Sodium 141 Potassium 4.7 Chloride 104 Carbon Dioxide 30 Anion Gap 7 L BUN 36 H Creatinine 2.1 H Glucose 105 H Calcium 8.9 Phosphorus 3.9 AST ALT Troponin I NT-Pro-B Natriuret Pep Albumin 2.6 L Amylase Lipase TSH 12/29/17 12/29/17 12/30/17 03:36 03:36 06:20 WBC Hct 36.6 L Plt Count 127 L INR Sodium Potassium Chloride Carbon Dioxide Anion Gap BUN Creatinine 1.9 H 1.8 H Glucose 97 Calcium Phosphorus AST 54 H ALT 76 H Troponin I < 0.012 NT-Pro-B Natriuret Pep 13859 H Albumin Amylase Lipase TSH 1.390 12/31/17 01/01/18 01/02/18 05:15 04:10 03:41 WBC Hct Plt Count INR Sodium Potassium Chloride Carbon Dioxide Anion Gap BUN Creatinine 1.8 H 1.7 H 1.8 H Glucose 89 98 114 H Calcium Phosphorus AST ALT Troponin I NT-Pro-B Natriuret Pep 70027 H Albumin Amylase Lipase TSH Physical Exam - Physical Exam General Appearance: alert Neck: supple Respiratory: decreased breath sounds, crackles, prolonged expiration Cardiac/Chest: edema, systolic murmur, irregularly irregular Abdomen: non-tender, soft, No organomegaly Skin: pallor Extremities: non-tender, pedal edema, No calf tenderness Neuro/Psych: normal mood/affect, oriented x 3 ICD10 Worksheet Patient Problems: Problems Problem Status Onset CHF exacerbation Acute Diastolic CHF Acute Hypertension Acute Kidney neoplasm Acute PVC (premature ventricular contraction) Acute chronic disease mgmt/transitional care Acute
[2018-01-02] MEDS: amLODIPine BESYLATE 5 MG TAB PO SCH (10:01)
[2018-01-02] MEDS: POTASSIUM CL 20 MEQ TAB PO SCH ×3 (10:01→22:27)
[2018-01-02] MEDS: SPIRONOLACTONE 25 MG TAB PO SCH (10:01)
--- NOTE | 2018-01-02 10:20 | SOAPPROG ---
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 CKD Stage III -unilateral kidney -Cr stable at 1.8 today, near baseline -monitor I/O's, avoid nephrotoxins HTN/vol: -controlled on amlodipine and Coreg -diuretic as below H/o CM with EF 20-25% and MR/TR -dobutamine 5mcg/kg -switched to lasix 80mg IV tid per cardiology -possible AV ablation 01/07, does not want ICD -will need to switch to po lasix (120mg BID) and obtain 3h post Na for goal 60- 80mEq if discharging soon, unclear if bumex necessary BMD/lytes -calcium corrects with albumin -monitor lytes, on K+ repletion Please contact if ?s, #[phone]. 01/02/18 10:18 Subjective: Made 2.6L UO overnight. Feeling ok this am. Had long discussion with cards on end-of-life care this am. Objective: Vital Signs Temp Pulse Resp BP Pulse Ox 36.9 C 99 11 L 111/85 H 97 01/02/18 07:21 01/02/18 07:21 01/02/18 07:21 01/02/18 07:21 01/02/18 07:21 Laboratory Results 01/02/18 03:41 01/01/18 01/02/18 01/03/18 05:59 05:59 05:59 Intake Total 1796 1305 Output Total 3145 2960 Balance -1349 -1655 PT 24.4 SEC (12.0-15.0) H 01/02/18 03:41 INR 2.19 (0.83-1.16) H 01/02/18 03:41 Physical Exam - Physical Exam General Appearance: WD/WN, alert, no apparent distress EENT: PERRL/EOMI, normal ENT inspection Neck: non-tender, full range of motion, supple Respiratory: chest non-tender, decreased breath sounds, crackles Cardiac/Chest: normal peripheral pulses, edema, irregularly irregular Abdomen: normal bowel sounds, non-tender, soft Back: Normal inspection Skin: normal color, warm/dry Extremities: normal range of motion, non-tender, pedal edema Neuro/Psych: alert, normal mood/affect, oriented x 3 ICD10 Worksheet Patient Problems: Problems Problem Status Onset CHF exacerbation Acute Diastolic CHF Acute Hypertension Acute Kidney neoplasm Acute PVC (premature ventricular contraction) Acute chronic disease mgmt/transitional care Acute
[2018-01-02] MEDS: traMADol 50 MG TAB PO SCH ×2 (11:33→22:27)
[2018-01-02] MEDS ORDERED: LACTULOSE 20 GM/30 ML UDCUP PO PRN (11:46)
[2018-01-02] MEDS ORDERED: BISACODYL 10 MG SUPP PR PRN (11:46)
[2018-01-02] MEDS ORDERED: POLYETHYLENE GLYCOL 3350 17 GM PKT PO PRN (11:46)
[2018-01-02] MEDS ORDERED: MAGNESIUM HYDROXIDE 30 ML UDCUP PO PRN (11:46)
--- NOTE | 2018-01-02 15:00 | HOSPPROG ---
Hospitalist Progress Note Assessment/Plan: 77-year-old female presenting with acute systolic CHF exacerbation in the setting of severe mitral regurgitation and permanent atrial fibrillation. Previous diursesis with IV lasix and dobutamine; now pulse dose lasix and dobutamine and continues to have good diuresis. 1. Acute systolic CHF exacerbation. Known moderate to severe mitral regurg and tricuspid regurg with any EF of approximately 20%. 2. Mitral regurgitation. Severe, unclear whether the patient will be able to stabilize enough to undergo a procedure which may provide her with some benefit , possibly mitral valve clip -patient would like to d/w Dr. Hobbs, notified 3. Permanent atrial fibrillation. Rate has been suboptimally controlled. Coreg will be continued at 25 mg twice daily. Next week patient is considered for AV node ablation and by a ventricular pacemaker for an appointment on 2017. Cardiology is considering a cardiac catheterization if the patient is off anticoagulation for her AV node ablation and pacemaker placement. 4. Chronic kidney disease. Stage III, baseline creatinine around 2.0, patient' s renal disease is secondary to previous nephrectomy and has resulted in somewhat refractory stay to high-dose diuretics. renal function is stable with lasix 5. Anticoagulation on Coumadin is therapeutic. 6. Transaminitis. Most likely secondary to hepatic congestion in the setting of right-sided heart failure 7. Acute nausea, new problem: This is likely secondary to strong beta stimulation with dobutamine causing vagal stimulation and gastric distention. Is currently successfully treated with Zofran. Diet. Cardiac Prophylaxis. High risk patient, currently on Coumadin Code. Full Plan: Per above Time: 45 min. Patient was interviewed with staff in the room and all questions were answered of the patient and . Case discussed with Cardiology and Jr hobbs Subjective: Feeling well; Does not want ICD; continues to have diursis Objective: Vital Signs Temp Pulse Resp BP Pulse Ox 36.8 C 102 H 17 110/91 H 98 01/02/18 11:41 01/02/18 11:41 01/02/18 11:41 01/02/18 11:41 01/02/18 11:41 Laboratory Results 01/02/18 03:41 01/01/18 01/02/18 01/03/18 05:59 05:59 05:59 Intake Total 1796 1305 240 Output Total 3145 2960 500 Balance -1349 -1655 -260 PT 24.4 SEC (12.0-15.0) H 01/02/18 03:41 INR 2.19 (0.83-1.16) H 01/02/18 03:41 - Time Spent With Patient Time Spent with Patient: greater than 35 minutes Time Spent with Patient: Greater than 35 minutes spent on this patients care, greater than 50% of time spent counseling, educating, and coordinating care regarding the above mentioned plan. - Pending Discharge Pending Discharge Within 24 Hours: No Pending Discharge Within 48 Hours: No - Physical Exam Constitutional: no apparent distress, chronically ill appearing Eyes: PERRL Ears, Nose, Mouth, Throat: moist mucous membranes, hearing normal Cardiovascular: irregularly irregular, tachycardia Respiratory: no respiratory distress, no rales or rhonchi, clear to auscultation Gastrointestinal: normoactive bowel sounds, soft, non-tender abdomen, no palpable masses, other (some increased nausea with pressure in the epigastrium) Genitourinary: no bladder fullness Skin: warm Musculoskeletal: generalized weakness Neurologic: AAOx3, CN II-XII Intact ICD10 Worksheet Patient Problems: Problems Problem Status Onset CHF exacerbation Acute chronic disease mgmt/transitional care Acute Kidney neoplasm Acute Hypertension Acute Diastolic CHF Acute PVC (premature ventricular contraction) Acute
[2018-01-02] MEDS ORDERED: ONDANSETRON 4 MG/2 ML VIAL IVP ONE (15:08)
[2018-01-02] MEDS: ONDANSETRON 4 MG/2 ML VIAL IVP PRN ×3 (15:09→21:54)
[2018-01-02] MEDS ORDERED: ONDANSETRON DISINTEGRATING 4 MG TAB PO PRN (21:45)
[2018-01-02] MEDS ORDERED: PROMETHAZINE HCL 25 MG/ML INJ IVP PRN (21:46)
[2018-01-02] MEDS ORDERED: PROMETHAZINE HCL 25 MG TAB PO PRN (21:46)
[2018-01-02] MEDS: DOCUSATE SODIUM 100 MG CAP PO SCH (22:26)
[2018-01-03] MEDS: DOBUTamine/DEXTROSE 250 ML IV SCH (02:25)
[2018-01-03] MEDS: FUROSEMIDE 100 MG/10 ML VIAL IVP SCH (05:34)
[2018-01-03 05:55] LABS: INR 1.85 (0.83-1.16); PROTIME(PATIENT) 21.4 SEC (12.0-15.0)
[2018-01-03] MEDS ORDERED: FUROSEMIDE 100 MG/10 ML VIAL IVP SCH (08:54)
--- NOTE | 2018-01-03 09:02 | SOAPPROG ---
SOAP Progress Note Assessment/Plan: 1. Heart failure with reduced ejection fraction. 2. Acute on chronic systolic heart failure 3. Weakness 4. Nausea Plan: 01/02/18 10:05 01/03/18 08:57 1 heart failure with reduced ejection fraction 2 acute on chronic systolic heart failure 3 chronic renal insufficiency 4 weakness 5 nausea She had a good diuresis yesterday of 1600 cc out. Her nausea continues She has been thoroughly evaluated by GI in They did not have any other recommendations We are increasing her anti nausea medicine. Will cut back on her diuretic We will stop dobutamine Hopefully she will go home tomorrow That is what she would like to do Once again we have gone over end of life care and she wants no resuscitation. She does not want an ICD She will plan to come back on for her AV node ablation. She would like to know if a right left heart catheterization will be of any benefit to her. Her nuclear stress tests have been negative. I will review that with Karime this week. In the past he had not thought it was necessary. All her questions have been answered Her prognosis guarded. We have discussed this. She is aware of this. She has discussed with me which she wants her service And other issues. Subjective: She is feeling well today. She has no chest pain jaw pain arm pain She is not short of breath She had significant nausea She did vomit after eating. She is sleeping in her chair. She is weak and she is tired Her twin sister is coming to town today She is looking for to seeing her sister. She is taking her anticoagulation. Objective: Vital Signs Temp Pulse Resp BP Pulse Ox 36.3 C 105 H 15 126/88 H 96 01/03/18 08:00 01/03/18 08:00 01/03/18 08:00 01/03/18 08:00 01/03/18 08:00 Laboratory Results 01/03/18 05:22 01/02/18 01/03/18 01/04/18 05:59 05:59 05:59 Intake Total 1305 709 Output Total 2960 2500 Balance -1655 -1791 PT 21.4 SEC (12.0-15.0) H 01/03/18 05:22 INR 1.85 (0.83-1.16) H 01/03/18 05:22 Physical Exam - Physical Exam General Appearance: alert, mild distress Respiratory: rhonchi, prolonged expiration Cardiac/Chest: systolic murmur, irregularly irregular Abdomen: non-tender, soft, No organomegaly Skin: warm/dry Extremities: non-tender, pedal edema, No calf tenderness Neuro/Psych: alert, normal mood/affect ICD10 Worksheet Patient Problems: Problems Problem Status Onset CHF exacerbation Acute Diastolic CHF Acute Hypertension Acute Kidney neoplasm Acute PVC (premature ventricular contraction) Acute chronic disease mgmt/transitional care Acute
[2018-01-03] MEDS: CARVEDILOL 25 MG TAB PO SCH ×2 (09:44→18:09)
[2018-01-03] MEDS: POTASSIUM CL 20 MEQ TAB PO SCH ×2 (09:44→20:41)
[2018-01-03] MEDS: amLODIPine BESYLATE 5 MG TAB PO SCH (09:44)
[2018-01-03] MEDS: ALLOPURINOL 100 MG TAB PO SCH ×2 (09:44→20:41)
[2018-01-03] MEDS: traMADol 50 MG TAB PO SCH ×2 (09:44→20:41)
[2018-01-03] MEDS: WARFARIN SODIUM 2.5 MG TAB PO SCH (09:45)
[2018-01-03] MEDS: SPIRONOLACTONE 25 MG TAB PO SCH (09:45)
--- NOTE | 2018-01-03 11:54 | SOAPPROG ---
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 CKD Stage III -unilateral kidney -Cr stable at 1.8 today, near baseline -monitor I/O's, avoid nephrotoxins HTN/vol: -controlled on amlodipine and Coreg -diuretic as below H/o CM with EF 20-25% and MR/TR -dobutamine held -would do lasix BID with higher dose given eGFR as opposed to 40mg tid -possible AV ablation 01/07, does not want ICD BMD/lytes -calcium corrects with albumin -monitor lytes, on K+ repletion Please contact if ?s, #[phone]. 01/03/18 11:52 Subjective: Feeling ok today, still a little nauseas. Only made 1.5L UO documented. Objective: Vital Signs Temp Pulse Resp BP Pulse Ox 37.1 C 102 H 15 111/91 H 84 L 01/03/18 10:57 01/03/18 10:57 01/03/18 10:57 01/03/18 10:57 01/03/18 10:57 Laboratory Results 01/03/18 05:22 01/02/18 01/03/18 01/04/18 05:59 05:59 05:59 Intake Total 1305 709 Output Total 2960 2500 500 Balance -1655 -1791 -500 PT 21.4 SEC (12.0-15.0) H 01/03/18 05:22 INR 1.85 (0.83-1.16) H 01/03/18 05:22 Physical Exam - Physical Exam General Appearance: WD/WN, alert, mild distress EENT: PERRL/EOMI, normal ENT inspection Neck: non-tender, full range of motion, supple Respiratory: chest non-tender, decreased breath sounds, crackles Cardiac/Chest: edema, systolic murmur, irregularly irregular Abdomen: normal bowel sounds, non-tender, soft, distended Skin: normal color, warm/dry Extremities: normal range of motion, non-tender, pedal edema Neuro/Psych: no motor/sensory deficits, alert, normal mood/affect, oriented x 3 ICD10 Worksheet Patient Problems: Problems Problem Status Onset CHF exacerbation Acute Diastolic CHF Acute Hypertension Acute Kidney neoplasm Acute PVC (premature ventricular contraction) Acute chronic disease mgmt/transitional care Acute
[2018-01-03] MEDS ORDERED: WARFARIN SODIUM 2.5 MG TAB PO ONE (13:45)
[2018-01-03] MEDS ORDERED: FUROSEMIDE 40 MG/4 ML VIAL IVP SCH (14:00)
--- NOTE | 2018-01-03 15:03 | ASMTCMCOM ---
CM Note CM Note Notes: 01/03/2018 Case Management Note Met w/pt and twin sister Chioma today during rounds. Pt is considering ICD. Pt has follow up appointment for with [facility]. Case Management d/c poc: remains independent. Anticipating d/c on Thursday or Thursday. Case Management to follow. Date Signed: 01/03/2018 03:02 PM Electronically Signed By:Tyra Morales RN
--- NOTE | 2018-01-03 15:54 | HOSPPROG ---
Hospitalist Progress Note Assessment/Plan: 77-year-old female presenting with acute systolic CHF exacerbation in the setting of severe mitral regurgitation and permanent atrial fibrillation. Previous diursesis with IV lasix and dobutamine; Now off dobutamine on pulse dose lasix. 1. Acute systolic CHF exacerbation. Known moderate to severe mitral regurg and tricuspid regurg with any EF of approximately 20%. 2. Mitral regurgitation. Severe, unclear whether the patient will be able to stabilize enough to undergo a procedure which may provide her with some benefit , possibly mitral valve clip -patient would like to d/w Dr. Hobbs, notified 3. Permanent atrial fibrillation. Rate has been suboptimally controlled. Coreg will be continued at 25 mg twice daily. Next week patient is considered for AV node ablation and by a ventricular pacemaker for an appointment on 2017. Cardiology is considering a cardiac catheterization if the patient is off anticoagulation for her AV node ablation and pacemaker placement. Patient has agree to an ICD today. 4. Chronic kidney disease. Stage III, baseline creatinine around 1.8, patient' s renal disease is secondary to previous nephrectomy and has resulted in somewhat refractory to high-dose diuretics. renal function is stable with lasix dosing 5. Anticoagulation on Coumadin is therapeutic. 6. Transaminitis. Most likely secondary to hepatic congestion in the setting of right-sided heart failure 7. Acute nausea, new problem: This is likely secondary to strong beta stimulation with dobutamine causing vagal stimulation and gastric distention. Is currently successfully treated with Zofran. Diet. Cardiac Prophylaxis. High risk patient, currently on Coumadin Code. Full Plan: Per above Time: 45 min. Patient was interviewed with staff in the room and all questions were answered of the patient and . Case discussed with Cardiology and Jr hobbs -discussed with cardiology. Disposition: -snf placement 01/04; followup with cardiology 01/07 Subjective: reports feeling well Objective: Vital Signs Temp Pulse Resp BP Pulse Ox 37.1 C 102 H 15 111/91 H 90 L 01/03/18 10:57 01/03/18 10:57 01/03/18 10:57 01/03/18 10:57 01/03/18 14:30 Laboratory Results 01/03/18 05:22 01/02/18 01/03/18 01/04/18 05:59 05:59 05:59 Intake Total 1305 709 Output Total 2960 2500 500 Balance -1655 -1791 -500 PT 21.4 SEC (12.0-15.0) H 01/03/18 05:22 INR 1.85 (0.83-1.16) H 01/03/18 05:22 - Time Spent With Patient Time Spent with Patient: greater than 35 minutes Time Spent with Patient: Greater than 35 minutes spent on this patients care, greater than 50% of time spent counseling, educating, and coordinating care regarding the above mentioned plan. - Pending Discharge Pending Discharge Within 24 Hours: Yes Pending Discharge Date: 01/04/18 Pending Discharge Time: 11:00 - Physical Exam Constitutional: no apparent distress Eyes: PERRL, anicteric sclera Ears, Nose, Mouth, Throat: moist mucous membranes, hearing normal Cardiovascular: irregularly irregular, JVD Respiratory: no respiratory distress, no rales or rhonchi, clear to auscultation Gastrointestinal: normoactive bowel sounds, soft, non-tender abdomen, no palpable masses Genitourinary: no bladder fullness Musculoskeletal: generalized weakness, other (edema) Neurologic: AAOx3, CN II-XII Intact Psychiatric: interacting appropriately ICD10 Worksheet Patient Problems: Problems Problem Status Onset CHF exacerbation Acute chronic disease mgmt/transitional care Acute Kidney neoplasm Acute Hypertension Acute Diastolic CHF Acute PVC (premature ventricular contraction) Acute
[2018-01-03] MEDS ORDERED: WARFARIN SODIUM 5 MG TAB PO ONE (16:00)
[2018-01-03] MEDS: DOCUSATE SODIUM 100 MG CAP PO SCH (20:40)
[2018-01-03] MEDS: FUROSEMIDE 40 MG/4 ML VIAL IVP SCH (20:42)
[2018-01-03] MEDS: ONDANSETRON 4 MG/2 ML VIAL IVP PRN (20:46)
[2018-01-04 05:03] VITALS: RESP 18
[2018-01-04 05:25] LABS: INR 1.75 (0.83-1.16); PROTIME(PATIENT) 20.5 SEC (12.0-15.0)
[2018-01-04] MEDS: POTASSIUM CL 20 MEQ TAB PO SCH (09:12)
[2018-01-04] MEDS: traMADol 50 MG TAB PO SCH (09:12)
[2018-01-04] MEDS: SPIRONOLACTONE 25 MG TAB PO SCH (09:13)
[2018-01-04] MEDS: CARVEDILOL 25 MG TAB PO SCH (09:13)
[2018-01-04] MEDS: amLODIPine BESYLATE 5 MG TAB PO SCH (09:13)
[2018-01-04] MEDS: FUROSEMIDE 40 MG/4 ML VIAL IVP SCH (09:14)
[2018-01-04] MEDS: ALLOPURINOL 100 MG TAB PO SCH (09:14)
--- NOTE | 2018-01-04 09:21 | PDCARPN ---
Cardiology Progress Note Chief Complaint: edema/SOB Assessment/Plan: Assessment: HF edema SOB Plan: 01/04/18 09:18 Patient feels better but is concerned about mild weight gain Unfortunately she has to restrict sodium and fluid even further given her underlying cardiac condition Good spirits today--would like to go home Off dobutamine--OK from CV perspective to go home, return later this week for EP procedure Subjective: feels better Reviewed/Discussed With: multidisciplinary team Time Spent With Patient: 25 min Objective: Vital Signs (8 Hrs) Temp Pulse Resp BP Pulse Ox 01/04/18 08:00 36.8 C 96 18 109/83 H 94 01/04/18 04:00 36.8 C 106 H 18 105/76 93 Intake/Output (24 Hrs) 01/03/18 01/04/18 01/05/18 05:59 05:59 05:59 Intake Total 709 688 250 Output Total 2500 1175 Balance -1791 -487 250 Intake: Oral (ml) 490 660 250 IV Infused (ml) 219 28 DOBUTamine/DEXTROSE 250 219 28 ml @ As Directed IV CONT FRANKLYN Rx#:[id number] Output: Urine (ml) 1500 1175 Bedside Commode 1000 Toilet 500 1175 Emesis (ml) 1000 Other: Weight 61.8 kg 62.7 kg Number of Voids Toilet 1 Number of Stools Toilet 1 Number of Emesis 1 Occurrences Result Diagrams: 12/29/17 03:36 01/04/18 05:00 - Physical Exam Constitutional: no apparent distress Eyes: PERRL Ears, Nose, Mouth, Throat: moist mucous membranes Cardiovascular: regular rate and rhythm Peripheral Pulses: 1+: femoral (R), femoral (L) Respiratory: no crackles Gastrointestinal: normoactive bowel sounds Genitourinary: no suprapubic tenderness Skin: other (LE edema) Neurologic: AAOx3 Psychiatric: cooperative ICD10 Worksheet Patient Problems: Problems Problem Status Onset CHF exacerbation Acute Diastolic CHF Acute Hypertension Acute Kidney neoplasm Acute PVC (premature ventricular contraction) Acute chronic disease mgmt/transitional care Acute
--- NOTE | 2018-01-04 10:25 | SOAPPROG ---
SOAP Progress Note Assessment/Plan: Assessment/Plan: CKD 3: unilateral kidney, baseline Cr around 2.0, has been stable around 1.8- 2.1 here in setting of diuresis. - Will continue to monitor. - Pt being diuresed. - Avoid hypotension and nephrotoxins. - Will arrange f/u in nephrology clinic after discharge. Hypervolemia: pt with CHF, off dobutamine now and continuing diuresis. Cardiology following. Hypokalemia: K now up to 4.8 while on Lasix, spironolactone and KCl supplement. - Will reduce KCl to daily dosage. - Will continue to monitor. HTN: controlled on current meds, could decrease amlodipine if hypotension is an issue. Subjective: No acute events overnight. Pt notes that her swelling is looking better and is hoping to be discharged today. She is breathing comfortably and is in good spirits. Objective: Vital Signs Temp Pulse Resp BP Pulse Ox 36.8 C 96 18 109/83 H 90 L 01/04/18 08:00 01/04/18 08:00 01/04/18 08:00 01/04/18 08:00 01/04/18 10:01 Laboratory Results 01/04/18 05:00 01/03/18 01/04/18 01/05/18 05:59 05:59 05:59 Intake Total 709 688 250 Output Total 2500 1175 Balance -1791 -487 250 PT 20.5 SEC (12.0-15.0) H 01/04/18 05:00 INR 1.75 (0.83-1.16) H 01/04/18 05:00 General: alert and oriented, no acute distress Eyes: EOMI, PERRL OP: Clear CV: RRR Resp: nonlabored respirations on RA Abd: Soft, NT Ext: +2 edema BLE Neuro: CN II-XII Grossly intact, no asterixis Psych: cooperative, appropriate mood and affect ICD10 Worksheet Patient Problems: Problems Problem Status Onset CHF exacerbation Acute Diastolic CHF Acute Hypertension Acute Kidney neoplasm Acute PVC (premature ventricular contraction) Acute chronic disease mgmt/transitional care Acute
--- NOTE | 2018-01-04 10:40 | ASMTLACE ---
LACE Length of stay for Answers: 4-6 days current admission Comorbidities - select Answers: Congestive heart failure all that apply Other Notes: HTN, CKD # of Emergency department Answers: 1-2 visits in the last 6 months Score: 8 Date Signed: 01/04/2018 10:39 AM Electronically Signed By:Tyra Morales RN
--- NOTE | 2018-01-04 10:45 | ASDISCHSUM ---
Discharge Information Plan Status:Home with No Needs Medically Cleared to Leave:01/04/2018 Discharge Date:01/04/2018 CM D/C Disposition:Home, Routine, Self-Care ADT D/C Disposition:Home, Routine, Self-Care Projected Discharge Date:01/04/2018 Transportation at D/C:Family Discharge Delay Reason: Follow-Up Date:01/04/2018 Discharge Slot: Final Diagnosis: Placement Information Patient Contact Information Contact Name:MIGUELANGEL Relationship: Address:[address] Work Phone: City[place] [facility] Phone: [facility] [address]/Zip Code:[place] [address] Email: Financial Information Financial Class:Medicare Primary Plan Desc:MEDICARE INPATIENT Primary Plan Number:[id number] Secondary Plan Desc: OUT OF STATE [facility] Secondary Plan Number:[id number] Assessment Information LACE LACE Length of stay for Answers: 4-6 days current admission Comorbidities - select Answers: Congestive heart failure all that apply Other Notes: HTN, CKD # of Emergency department Answers: 1-2 visits in the last 6 months Score: 8 Date Signed: 01/04/2018 10:39 AM Electronically Signed By:Tyra Morales RN [facility] Initial CM Assessment Living Arrangements What is your living Answers: With Spouse arrangement? Who do you live with? Type Of Residence What kind of residence do Answers: House you live in? Discharge Plan Comments Coordination Status Comments Notes: Pt is a 77 y/o female admitted for acute on chronic CHF failing. Therapies have been ordered and awaiting recommendations. Needs are TBD at this time. Pt is being followed by transitional care. CM to follow. Plan: TBD Date Signed: 12/29/2017 11:54 AM Electronically Signed By:CHERYL Pfeiffer [facility] CM Progress Note CM Note CM Note Notes: Pts case discussed in morning rounds. Therapies are recommending home independent. Pt will most likely not have any d/c needs when medically stable. CM available for changes. Plan: Independent Date Signed: 12/31/2017 02:34 PM Electronically Signed By:CHERYL Pfeiffer [facility] CM Progress Note CM Note CM Note Notes: 01/03/2018 Case Management Note Met w/pt and twin sister Chioma today during rounds. Pt is considering ICD. Pt has follow up appointment for with [facility]. Case Management d/c poc: remains independent. Anticipating d/c on Thursday or Thursday. Case Management to follow. Date Signed: 01/03/2018 03:02 PM Electronically Signed By:Tyra Morales RN Case Management Discharge Plan Note Case Management Discharge Discharge Order Complete? Answers: Yes Patient to Obtain Answers: Independently Medications Transportation Arranged Answers: Family/Friends Discharge Comments Notes: 01/04/2018 Case Management Note Pt to d/c independent with follow up on at [facility] for consultation. Family to transport home. Date Signed: 01/04/2018 10:44 AM Electronically Signed By:Tyra Morales RN Intervention Information Intervention Type:*TORRES-Signed Date of Service:12/29/2017 09:59 AM Patient Type:Observation Staff Member:Pia Morillo Hours: Discipline: Severity: Comment:
[2018-01-04 11:33] VITALS: BP 117/86; PULSE 105; TEMP 98.5; O2SAT 97
--- NOTE | 2018-01-04 13:14 | PDDCSUM ---
Discharge Summary Discharge Summary: DISCHARGE DIAGNOSES: -acute decompensated systolic and valvular congestive heart failure -moderate to severe mitral regurgitation -permanent atrial fibrillation -chronic anticoagulation for AFib -moderately severe pulmonary hypertension -sleep apnea -chronic kidney disease stage 3 currently at or near her baseline of 2.0 creatinine CONSULTANTS: Dr. Nikolas Deleon and colleagues Dr. Sha Kc and colleagues Dr. Maurilio Davison PROCEDURES: Echocardiogram showing dilated cardiomyopathy 20/20 5% ejection fraction, moderate to severe MR, pulmonary hypertension in the upper 50s, tricuspid regurg HOSPITAL COURSE SUMMARY: This patient who has chronic heart disease and renal disease came into hospital short of breath with significant volume overload. She was found to have significant pulmonary and peripheral edema. She has known heart disease but echocardiogram was done at this time showing ejection fraction at 20-25% with dilated left ventricular cavity, moderate to severe mitral regurgitation and some tricuspid regurgitation, pulmonary hypertension in the upper 50s. She has no sleep apnea and uses CPAP with oxygen at night at home. The patient was brought in the hospital and given IV Lasix diuresis which was quite successful. She was therapeutic on Coumadin as she arrived here and had good rate control which has continued here. She has chronic kidney disease and has been near her baseline creatinine of 2.0 here. Looking at the patient's scenario she has responded well enough to discharge the hospital at this time with a slightly increased dose of Coreg. However she is felt to be at significant risk of ventricular arrhythmias, and to be suffering from difficulty managing her heart failure on an outpatient basis due to cardiorenal syndrome as well as her atrial fibrillation. Is recommended at this point that she have an AICD pacer placed and be considered for a AFib ablation procedure following that. She has agreed to these procedures and her device placement as scheduled 3 days from now. She is being taken off of Coumadin at this point for that reason. She has also met with Dr. Pan and there is consideration for possibly a procedure to improve her mitral valve function either by clipping or otherwise. She will continue to follow up with [facility]iology [facility] to consider that as a possibility. She has an appointment upcoming with Dr. Chaitanya Patel her primary dye machine operator to review all these issues. PENDING TEST RESULTS: None MEDICATION CHANGES: Her Coumadin is currently being held in order to prepare her for her pacemaker placement 3 days from now Coreg is increased to 37.5 mg twice daily FOLLOW-UP PLAN: She returns here in 3 days for pacemaker AICD placement in [address] Davison Greater than 35 minutes bedside and care coordination time today
[2018-01-05] MEDS ORDERED: POTASSIUM CL 20 MEQ TAB PO SCH (09:00)
== END 2018-01-04 13:22 | disposition home or self-care (01) | DRG 293 ==
LOC: EDSTATUS 16:10 → F2W 18:31 → OBSVTOIN 12-29 14:38
PROVIDERS: ADMIT Internal Medicine; ATTEND Internal Medicine
PROC: 02HV33Z Insertion of Infusion Device into Superior Vena Cava, Percutaneous Approach (ICD-10-PCS; principal; 2017-12-29)
DX: I50.23 Acute on chronic systolic (congestive) heart failure (principal); I48.2 Chronic atrial fibrillation; N18.3 Chronic kidney disease, stage 3 (moderate); D50.9 Iron deficiency anemia, unspecified; E87.6 Hypokalemia; R11.0 Nausea; R74.0 Nonspecific elevation of levels of transaminase and lactic acid dehydrogenase [LDH]; I27.20 Pulmonary hypertension, unspecified; I08.1 Rheumatic disorders of both mitral and tricuspid valves; M10.9 Gout, unspecified; G47.33 Obstructive sleep apnea (adult) (pediatric); Z85.528 Personal history of other malignant neoplasm of kidney; Z90.5 Acquired absence of kidney; Z79.01 Long term (current) use of anticoagulants
CPT/HCPCS: 97116-GP; 97161-GP; 97165-GO; 97535-GO; C1751; G0378; G8978-GP-CI; G8979-GP-CI; G8987-GO-CI; G8988-GO-CI; J1250; J1940; J2405

== ENCOUNTER 2018-01-07 06:57 | Observation (INO) | payer OTHER, BC ==
[2018-01-07] MEDS ORDERED: DIAZEPAM 5 MG TAB PO ONE (07:04)
[2018-01-07] MEDS ORDERED: diphenhydrAMINE 25 MG CAP PO ONE (07:04)
[2018-01-07] MEDS ORDERED: NS 1,000 ML IV ONE (07:04)
[2018-01-07] MEDS ORDERED: BACITRACIN IRRIGATION/NS 50,000 UNITS/1,000 ML BTL IRR ONE (07:04)
--- NOTE | 2018-01-07 07:27 | CPEKG ---
Heart Rate: 117 RR Interval: 513 QRSD Interval: 98 QT Interval: 360 QTC Interval: 503 QRS [place]: -45 T Wave [place]: 115 EKG Severity - ABNORMAL ECG - EKG Impression: ATRIAL FIBRILLATION EKG Impression: PAIRED VENTRICULAR PREMATURE COMPLEXES EKG Impression: ABERRANT COMPLEX, POSSIBLY SUPRAVENTRICULAR EKG Impression: LEFT ANTERIOR FASCICULAR BLOCK EKG Impression: BORDERLINE PROLONGED QT INTERVAL Electronically Signed By: Edwin Lim 08-Jan-2018 12:56:35
[2018-01-07 07:54] LABS: PLATELET COUNT 168 10^3/uL (150-400)
[2018-01-07 08:01] LABS: INR 1.14 (0.83-1.16); PROTIME(PATIENT) 14.8 SEC (12.0-15.0)
[2018-01-07] MEDS ORDERED: LIDOCAINE 1% 300 MG/30 ML SDV ONE (08:30)
[2018-01-07] MEDS ORDERED: BUPIVACAINE 0.5% 30 ML SDV ONE (08:30)
--- NOTE | 2018-01-07 08:56 | PDHPUP ---
History & Physical Update H&P update statement: This history and physical update is based on an assessment of the patient which was completed after admission or registration (within 24 hours), but prior to the surgery/procedure. H&P update: H&P reviewed & patient examined, no change in patient's condition since H&P completed
[2018-01-07] MEDS ORDERED: MIDAZOLAM 2 MG/2 ML VIAL IVP ONE (08:59)
[2018-01-07] MEDS ORDERED: VANCOMYCIN HCL/NORMAL SALINE 250 ML IV ONE (09:00)
[2018-01-07] MEDS ORDERED: VANCOMYCIN 1 GM in NS 250 ML IV ONE (09:00)
--- NOTE | 2018-01-07 09:01 | PDANEPAE ---
ANE History of Present Illness 77 yo for biv pm ef 28% ANE Past Medical History - Cardiovascular History Hx Hypertension: Yes Hx Arrhythmias: Yes Hx Chest Pain: No Hx Coronary Artery / Peripheral Vascular Disease: No Hx CHF / Valvular Disease: No Cardiovascular History Comment: htn- controlled c meds. had heart failure while in [facility] 5 yrs ago-was off bp meds too long no problems since. denies chest pain, released by 2010. - Pulmonary History Hx COPD: No Hx Asthma/Reactive Airway Disease: No Hx Recent Upper Respiratory Infection: No Hx Oxygen in Use at Home: Yes Hx Sleep Apnea: Yes Pulmonary History Comment: quit smoking age 29. - Neurologic History Hx Cerebrovascular Accident: No Hx Seizures: No Hx Dementia: No - Endocrine History Hx Diabetes: No - Renal History Hx Renal Disorders: Yes Renal History Comment: l kidney tumor, current. - Liver History Hx Hepatic Disorders: No - Neurological & Psychiatric Hx Hx Neurological and Psychiatric Disorders: No - Cancer History Hx Cancer: No - Congenital Disorder History Hx Congenital Disorders: No - GI History Hx Gastrointestinal Disorders: Yes Gastrointestinal History Comment: hx cholelithiasis. hx appy. - Other Health History Other Health History: upper denture and lower implants x 3. anemia when younger. - Chronic Pain History Chronic Pain: No - Surgical History Prior Surgeries: hysterectomy c kenny oophorectomy. c-sec x 2. cholecystectomy. appy. ANE Review of Systems Review of Systems: - Exercise capacity METS (RN): 3 METS ANE Patient History - Allergies Allergies/Adverse Reactions: morphine Allergy (Verified 12/28/17 16:19) Penicillins Allergy (Verified 12/28/17 16:19) Rash - Home Medications Home Medications: Allopurinol [Allopurinol 100 MG (*)] 100 mg PO BID 08/17/12 [Last Taken 08:00] traMADol [Ultram 50 mg (*)] 50 mg PO BID 08/17/12 [Last Taken 12/28/17 08:00] Cholecalciferol Vit D3 [Vitamin D3 2000 units] 2,000 units PO DAILY 10/07/13 [ Last Taken 12/25/17] amLODIPine BESYLATE [Norvasc 5 mg (*)] 5 mg PO DAILY 12/01/17 [Last Taken ] Docusate Sodium [Colace 100 MG (*)] 100 mg PO HS 12/28/17 [Last Taken 12/27/17] Potassium Cl [Klor-Con 20 meq (*)] 20 meq PO DAILY 12/28/17 [Last Taken 12/28/17 ] Spironolactone [Aldactone 25 MG (*)] 12.5 mg PO DAILY 12/28/17 [Last Taken 12/28] Torsemide 100 mg PO DAILY 01/07/18 [Last Taken Unknown] - NPO status NPO Status: no food or drink >8 hours - Smoking Hx Smoking Status: Former smoker - Family Anes Hx Family Hx Anesthesia Complications: none ANE Labs/Vital Signs - Labs Result Diagrams: 01/07/18 07:30 01/07/18 07:30 - Vital Signs Height: 5 ft 2 in Weight: 63.049 kg ANE Physical Exam - Airway Neck exam: FROM Mallampati Score: Class 2 - Pulmonary Pulmonary: no respiratory distress - Cardiovascular Cardiovascular: regular rate and rhythym - ASA Status ASA Status: III ANE Anesthesia Plan Anesthesia Plan: MAC
[2018-01-07] MEDS ORDERED: MIDAZOLAM 2 MG/2 ML VIAL ONE (09:17)
[2018-01-07] MEDS ORDERED: PROPOFOL/EMULSION 500 MG/50 ML BOTTLE IV ONE (09:18)
[2018-01-07] MEDS ORDERED: fentaNYL 100 MCG/2 ML INJ ONE (09:19)
[2018-01-07] MEDS ORDERED: IOPAMIDOL (ISOVUE-300) 100 ML BTL ONE (09:52)
[2018-01-07] MEDS ORDERED: ACETAMINOPHEN 325 MG TAB PO PRN (12:19)
--- NOTE | 2018-01-07 12:40 | CPEKG ---
Heart Rate: 105 RR Interval: 571 QRSD Interval: 102 QT Interval: 376 QTC Interval: 498 QRS [place]: -51 T Wave [place]: 119 EKG Severity - ABNORMAL ECG - EKG Impression: ATRIAL FIBRILLATION EKG Impression: PAIRED VENTRICULAR PREMATURE COMPLEXES EKG Impression: LEFT ANTERIOR FASCICULAR BLOCK EKG Impression: NONSPECIFIC T ABNORMALITIES, LATERAL LEADS Electronically Signed By: Edwin Lim 08-Jan-2018 12:56:45
[2018-01-07 12:59] LABS: PLATELET COUNT 154 10^3/uL (150-400)
--- NOTE | 2018-01-07 13:56 | POSTANESTH ---
Post Anesthetic Evaluation Cardiovascular Status: Normal, Stable Respiratory Status: Normal, Stable Level of Consciousness/Mental Status: Can Participate in Eval Pain Control: Adequate, Prn Tx Ordered Nausea/Vomiting Control: Adequate, Prn Tx Ordered Complications Possibly Related to Anesthesia: None Noted
--- NOTE | 2018-01-07 14:14 | EPPROC ---
Electrophysiology Procedure Note: PROCEDURE PERFORMED: 1. Implantation of an A-BiV Implantable Cardioverter Defibrillator 2. Subclavian vein angiography 3. Fluoroscopy INDICATION: This is a 77 yr old with non-ischemic CMP with EF of 25% with chronic AF with RVR. Pt had poor rate control despite multiple meds. hence it was decided to perform BiV ICd for non-ischemic CMP EF25% NYHA III despite optimal medical management with expected 100% pacing after AV node ablation. PROCEDURE NOTE: Patient presented to the cardiac catheterization laboratory in a fasting, post absorptive state. MAC administered by anesthesiology staff. The left_ infraclavicular area was prepped and draped in the usual sterile fashion. Lidocaine plus bupivacaine was used for local anesthesia. Using a combination of blunt and sharp dissection and electrocautery, the dissection was carried down to the prepectoral fascia. Using usual technique left cephalic vein was accessed. All bleeding was controlled with electrocautery. Fluoroscopy was utilized during the entire procedure for venous access and placement of the leads Using a glidewire,. 9F sheath was placed and while retaining the wire, single coil RV lead was placed. Using the previously retained wire, [address] [employer] guiding sheath was placed. The coronary sinus ostium was engaged. Occlusion retrograde coronary sinus angiography was performed in three views. A coronary sinus quadripolar lead was advanced into the coronary sinus. An angioplasty wire was advanced through the lead and advanced into the mid portion of the posterolateral branch of the coronary sinus. The lead was advanced over the angioplasty wire. Pacing threshold, sensing and impedance was determined. There was no diaphragmatic stimulation at maximum output. The delivery system was peeled away. Again, pacing threshold, sensing and impedance was determined. Rv lead was dislodged and was repositioned. There was no diaphragmatic stimulation at maximum output. The CS lead was secured to the prepectoral fascia with 3 nonabsorbable sutures. Pacing threshold and sensing parameters of the RA, RV and LV leads were checked again. Pocket was created and it was flushed using antibiotic solution. The pocket was again inspected for any bleeding. The leads were attached to the pacemaker securely. The ICD was inserted into the pocket and secured in place with a nonabsorbable suture. Fluoroscopy was performed in RAMIREZ and KYRGYZ planes to verify right sided placement of the leads. Also fluoroscopy of the pacemaker pocket was performed. Defibrillation threshold testing was performed. The ICD pocket was closed in 3 layers with absorbable monocryl sutures. Appropriate dressing was applied. The patient left the cardiac catheterization laboratory in stable condition. Serial Numbers: 1. Device [facility] Kaiser Quadra Assura SN [id number] 3. Right Ventricular Lead St Kaiser 7122Q SN [id number] 4. Left Ventricular Lead St Akiser 1458Q SN [id number] Stimulation Thresholds & Impedance Measurements: 2. Right Ventricular Lead 5.3mV, 0.3@0.5ms, 427Ohms 3. Left Ventricular Lead 25.6mV, 0.5@0.5ms, 712Ohms Genaro Pacing Parameters: 1. Pacing mode VVIR 70 2. Lower rate 70 3. Upper rate 130 Tachycardia therapy parameters: VF zone : Detection 222 bpm First therapy 40 Joule Subsequent therapies 40 Joule VT zone : Detection 171 bpm Monitor Patient Problems: Problems Problem Status Onset CHF exacerbation Acute Diastolic CHF Acute Hypertension Acute Kidney neoplasm Acute PVC (premature ventricular contraction) Acute chronic disease mgmt/transitional care Acute
[2018-01-07] MEDS: CARVEDILOL 25 MG TAB PO SCH (17:53)
[2018-01-07] MEDS: traMADol 50 MG TAB PO SCH (20:15)
[2018-01-07] MEDS: ALLOPURINOL 100 MG TAB PO SCH (20:15)
[2018-01-07] MEDS ORDERED: DOCUSATE SODIUM 100 MG CAP PO SCH (21:00)
[2018-01-08 04:54] LABS: PLATELET COUNT 141 10^3/uL (150-400)
[2018-01-08 07:11] VITALS: BP 103/75; PULSE 86; RESP 18; TEMP 98; O2SAT 96
[2018-01-08] MEDS: traMADol 50 MG TAB PO SCH (08:21)
--- NOTE | 2018-01-08 08:32 | CPEKG ---
Heart Rate: 108 RR Interval: 556 QRSD Interval: 102 QT Interval: 364 QTC Interval: 488 QRS [place]: -41 T Wave [place]: 138 EKG Severity - ABNORMAL ECG - EKG Impression: ATRIAL FIBRILLATION EKG Impression: MULTIFORM VENTRICULAR PREMATURE COMPLEXES EKG Impression: LEFT AXIS DEVIATION EKG Impression: ABNRM R PROG, CONSIDER ASMI OR LEAD PLACEMENT EKG Impression: NONSPECIFIC T ABNORMALITIES, LATERAL LEADS EKG Impression: BORDERLINE PROLONGED QT INTERVAL Electronically Signed By: Edwin Lim 08-Jan-2018 12:56:51
[2018-01-08] MEDS: CARVEDILOL 25 MG TAB PO SCH (08:36)
[2018-01-08] MEDS: ALLOPURINOL 100 MG TAB PO SCH (08:36)
[2018-01-08] MEDS ORDERED: POTASSIUM CL 20 MEQ TAB PO SCH (09:00)
[2018-01-08] MEDS ORDERED: CHOLECALCIFEROL VIT D3 1,000 UNITS TAB PO SCH (09:00)
[2018-01-08] MEDS ORDERED: TORSEMIDE 20 MG TAB PO SCH (09:00)
[2018-01-08] MEDS ORDERED: amLODIPine BESYLATE 5 MG TAB PO SCH (09:00)
[2018-01-08] MEDS ORDERED: SPIRONOLACTONE 25 MG TAB PO SCH (09:00)
[2018-01-08] MEDS ORDERED: WARFARIN SODIUM 5 MG TAB PO ONE (10:45)
--- NOTE | 2018-01-08 12:57 | GDS ---
[f rep st] DISCHARGE SUMMARY ADMISSION DIAGNOSIS: 1. Atrial fibrillation with rapid ventricular response with history of medication intolerance. 2. Nonischemic cardiomyopathy with known ejection fraction of 28%. 3. History of edslw-vz-lmvkxtm systolic heart failure. 4. Hypertension. 5. Renal insufficiency. 6. Valvular heart disease. DISCHARGE DIAGNOSIS: 1. Atrial fibrillation with rapid ventricular response with history of medication intolerance. 2. Nonischemic cardiomyopathy with most recent echocardiogram showing left ventricular ejection frac tion of 28%. 3. History of lpspc-rx-culvebe systolic heart failure. 4. Status post biventricular automatic implantable cardioverter defibrillator implantation with righ t ventricular and coronary sinus lead implantation. 5. Hypertension. 6. Renal insufficiency. 7. Valvular heart disease with known gvdzksrs-bf-mnennj mitral regurgitation and tricuspid regurgita tion. PROCEDURES PERFORMED DURING HOSPITALIZATION: 1. Electrocardiogram. 2. Biventricular AICD implantation, [employer] Kaiser device with [employer] Kaiser right ventricular lead and [employer]. Afshan e coronary sinus lead implantation done. 3. Chest x-ray. BRIEF HISTORY: Please see H and P. Briefly, the patient is a 77-year-old female with known history of nonischemic cardiomyopathy with EF of 28% and ylwsb-tm-amtcmsw systolic heart failure. She has be en known to have chronic atrial fibrillation with RVR, it has been difficult to control with medicati on therapy. She was seen by Dr. Davison of electrophysiology services, and felt to be a good candidate to initially have a pacemaker implantation with consideration of AV node ablation in the future, but with her cardiomyopathy and systolic heart failure, she was felt to be an appropriate candidate to traore ve a biventricular AICD implanted. HOSPITAL COURSE: The patient was admitted to the hospital through the CVC, prepped for procedure, an d taken to electrophysiology lab. There, Dr. Davison successfully implanted a [employer] Kaiser AICD generator a nd implanted a [employer] Kaiser RV defibrillator pacemaker lead and a coronary sinus LV lead. No complicatio ns. The patient was taken back to the CVC and ultimately to the PCU for overnight observation. Ther e, she has been in atrial fibrillation, with varying rates from 90-110. She has been restarted on he r beta haylee. She has had no chest pain, shortness of breath, or symptoms suggestive of ischemia. She has been up and walking in the unit without difficulties. PHYSICAL EXAMINATION: GENERAL APPEARANCE: Done today, average weight, elderly shwetha fragoso. She is alert and oriented to person, place, time, and situation. Appears to be under no acute d istress. VITAL SIGNS: Current vital signs are blood pressure of 103/75, heart rate of 86, atrial fi brillation on the monitor, respirations 18, saturating 96% on room air, temperature of 36.7 degrees C elsius. HEENT: Head is normocephalic. Lips and tongue are pink and moist with no signs of cyanosis . Conjunctivae pink. NECK: Trachea is midline, +2 carotid pulses bilateral, no auscultated bruits, jugular vein elevation 4-5 cm above sternal notch at a 45-degree angle. LUNGS: Diminished in bases bilateral, but no rhonchi, rales, or wheezes. No accessory muscle use, no intercostal muscle retrac tion noted. HEART: Regular rate, irregular rhythm, S1 and S2, 2/6 systolic murmur along left sterna l border. No S3 gallops or rubs noted. ABDOMEN: Soft, nontender, bowel sounds x4 quadrants. No or ganomegaly. No palpable masses. SKIN: Warm, dry. No cyanosis, +1 to 2 peripheral edema bilateral lower extremities from knees down. VASCULAR: +2 carotids bilateral, +2 radials bilateral, +1 dorsal pedal and posterior tibial pulses bilateral. Pacemaker access site, left anterior chest just distal to the clavicle. Incision intact with Steri-Strips. No redness, swelling, drainage, ecchymosis, or hematoma noted. Dressing change done at this time. LABORATORY STUDIES: Laboratory studies drawn today show WBC of 5.72, hemoglobin 8.3, hematocrit of 2 6.6, platelet count of 141. Sodium 138, potassium 4.4, chloride 102, CO2 of 28, BUN 46, creatinine 2 .0, glucose 108, calcium 8.3. STUDIES: Biventricular AICD implantation procedure as mentioned above. Morning electrocardiogram sh ows atrial fibrillation with left axis deviation, occasional premature ventricular contraction, nonsp ecific T-wave abnormalities in multiple leads. Chest x-ray done this a.m. showing pacemaker leads in adequate position. No pneumothorax. Moderate cardiomegaly without esteban edema. Small bilateral pleural effusions. Device check done by [facility] desk representative done today showing device functioning within normal limi ts. Continuous cardiac monitoring showing atrial fibrillation with occasional premature ventricular contraction, no other malignant arrhythmias or pauses noted. DISCHARGE DISPOSITION: The patient will be discharged home in fair condition, she is under activity restrictions of not lifting more than 10 pounds with the left arm for the next week and no strenuous activity for the next 7-10 days. DISCHARGE MEDICATIONS: Please see discharge medication reconciliation sheet. Note, the patient has been restarted on her diuretic therapy for heart failure. She will also resume her warfarin therapy starting today, per Dr. Davison, due to her history of chronic anemia, no bridging will be done, she has a Coumadin clinic appointment set for January 11, at 11 a.m. DISCHARGE INSTRUCTIONS: Post AICD biventricular pacemaker implantation instructions were gone over w ith the patient including monitoring for signs of infection, activity restrictions, bleeding precauti ons, shower precautions, and followup. The patient does have a device check scheduled for January 14 at 10 a.m., she will also follow up with Dr. Davison on January 22 at 10 a.m. to be re-evaluated, and po tentially be scheduled for AV node ablation. Due to her chronic renal insufficiency and chronic anem ia, we will plan on January 19 for her to get blood work prior to office visit of a CBC and a BMP. A t this time, the patient verbalizes understanding all discharge instructions and has no questions or concerns. She has been told that if any problems or concerns come up post discharge, she is to notif y our office or return to the hospital. Total time spent on discharge greater than 30 minutes. /[id number]/MODL
== END 2018-01-08 11:40 | disposition home or self-care (01) ==
LOC: FCATH 06:57 → F2W 12:17
PROVIDERS: ADMIT Internal Medicine Cardiovascular Disease; ATTEND Internal Medicine Cardiovascular Disease
PROC: B2111ZZ Fluoroscopy of Multiple Coronary Arteries using Low Osmolar Contrast (ICD-10-PCS; principal; 2018-01-07)
PROC: B5171ZA Fluoroscopy of Left Subclavian Vein using Low Osmolar Contrast, Guidance (ICD-10-PCS; principal; 2018-01-07)
PROC: 0JH808Z Insertion of Defibrillator Generator into Abdomen Subcutaneous Tissue and Fascia, Open Approach (ICD-10-PCS; principal; 2018-01-07)
PROC: 02HK3KZ Insertion of Defibrillator Lead into Right Ventricle, Percutaneous Approach (ICD-10-PCS; principal; 2018-01-07)
PROC: 02HL3KZ Insertion of Defibrillator Lead into Left Ventricle, Percutaneous Approach (ICD-10-PCS; principal; 2018-01-07)
DX: I48.2 Chronic atrial fibrillation (principal); I50.23 Acute on chronic systolic (congestive) heart failure; I42.9 Cardiomyopathy, unspecified; R00.0 Tachycardia, unspecified; I11.0 Hypertensive heart disease with heart failure; N28.9 Disorder of kidney and ureter, unspecified; I08.1 Rheumatic disorders of both mitral and tricuspid valves; Z85.528 Personal history of other malignant neoplasm of kidney; Z90.5 Acquired absence of kidney; G47.33 Obstructive sleep apnea (adult) (pediatric)
CPT/HCPCS: 33249; 71046; 93005; C1769; J2250; J2704; J3010; J3370; Q9967

== ENCOUNTER 2018-01-28 09:17 | Observation (INO) | payer OTHER, BC ==
[2018-01-28] MEDS ORDERED: NS 1,000 ML IV ONE (09:21)
--- NOTE | 2018-01-28 09:41 | CPEKG ---
Heart Rate: 99 RR Interval: 606 P-R Interval: 174 QRSD Interval: 102 QT Interval: 388 QTC Interval: 498 P [place]: 0 QRS [place]: -46 EKG Severity - ABNORMAL ECG - EKG Impression: VENTRICULAR-PACED COMPLEXES EKG Impression: LAD, CONSIDER LEFT ANTERIOR FASCICULAR BLOCK EKG Impression: BORDERLINE PROLONGED QT INTERVAL Electronically Signed By: Vicente Lin 28-Jan-2018 11:09:16
[2018-01-28 10:27] LABS: PLATELET COUNT 127 10^3/uL (150-400)
[2018-01-28 10:35] LABS: INR 1.1 (0.83-1.16); PROTIME(PATIENT) 14.4 SEC (12.0-15.0)
[2018-01-28] MEDS ORDERED: MIDAZOLAM 2 MG/2 ML VIAL ONE (11:31)
[2018-01-28] MEDS ORDERED: PROPOFOL 200 MG/20 ML VIAL ONE ×2 (11:32→12:55)
--- NOTE | 2018-01-28 11:37 | PDANEPAE ---
ANE Past Medical History - Cardiovascular History Hx Hypertension: Yes Hx Arrhythmias: Yes Hx Chest Pain: No Hx Coronary Artery / Peripheral Vascular Disease: No Hx CHF / Valvular Disease: No Cardiovascular History Comment: htn- controlled c meds. had heart failure while in [facility] 5 yrs ago-was off bp meds too long no problems since. denies chest pain, released by 2010. - Pulmonary History Hx COPD: No Hx Asthma/Reactive Airway Disease: No Hx Recent Upper Respiratory Infection: No Hx Oxygen in Use at Home: Yes Hx Sleep Apnea: Yes Pulmonary History Comment: quit smoking age 29. - Neurologic History Hx Cerebrovascular Accident: No Hx Seizures: No Hx Dementia: No - Endocrine History Hx Diabetes: No - Renal History Hx Renal Disorders: Yes Renal History Comment: l kidney tumor, current. - Liver History Hx Hepatic Disorders: No - Neurological & Psychiatric Hx Hx Neurological and Psychiatric Disorders: No - Cancer History Hx Cancer: No - Congenital Disorder History Hx Congenital Disorders: No - GI History Hx Gastrointestinal Disorders: Yes Gastrointestinal History Comment: hx cholelithiasis. hx appy. - Other Health History Other Health History: upper denture and lower implants x 3. anemia when younger. - Chronic Pain History Chronic Pain: No - Surgical History Prior Surgeries: hysterectomy c kenny oophorectomy. c-sec x 2. cholecystectomy. appy. ANE Review of Systems Review of Systems: ANE Patient History - Allergies Allergies/Adverse Reactions: morphine Allergy (Mild, Verified 01/25/18 13:44) Penicillins Allergy (Verified 12/28/17 16:19) Rash - Home Medications Home Medications: Allopurinol [Allopurinol 100 MG (*)] 100 mg PO BID 08/17/12 [Last Taken 01/27/18 ] traMADol [Ultram 50 mg (*)] 50 mg PO BID 08/17/12 [Last Taken 01/27/18] Cholecalciferol Vit D3 [Vitamin D3 2000 units] 2,000 units PO DAILY 10/07/13 [ Last Taken 01/27/18] amLODIPine BESYLATE [Norvasc 5 mg (*)] 5 mg PO DAILY 12/01/17 [Last Taken ] Docusate Sodium [Colace 100 MG (*)] 100 mg PO HS 12/28/17 [Last Taken 01/27/18] Potassium Cl [Klor-Con 20 meq (*)] 20 meq PO DAILY 12/28/17 [Last Taken 01/27/18 ] Spironolactone [Aldactone 25 MG (*)] 12.5 mg PO DAILY 12/28/17 [Last Taken 01/27] Torsemide 100 mg PO DAILY 01/07/18 [Last Taken 01/27/18] Torsemide 60 mg PO DAILY@15 01/25/18 [Last Taken 01/27/18] Warfarin Sodium [Coumadin 2.5MG (*)] 2.5 mg PO SUMOTUWEFRSA@16 01/25/18 [Last Taken 01/27/18] Warfarin Sodium [Coumadin 5MG (*)] 5 mg PO TH@16 01/25/18 [Last Taken 01/21/18] - Smoking Hx Smoking Status: Former smoker - Family Anes Hx Family Hx Anesthesia Complications: none ANE Labs/Vital Signs - Labs Result Diagrams: 01/28/18 09:34 01/28/18 09:34 - Vital Signs Height: 157.48 cm Weight: 62.142 kg ANE Physical Exam - Airway Neck exam: FROM Mallampati Score: Class 1 Mouth exam: dentures - Pulmonary Pulmonary: no respiratory distress, no rales or rhonchi, clear to auscultation - Cardiovascular Cardiovascular: irregularly irregular - ASA Status ASA Status: IV ANE Anesthesia Plan Anesthesia Plan: GA w LMA
[2018-01-28] MEDS ORDERED: ALBUMIN 5% 250 ML BOTTLE IV ONE (11:41)
[2018-01-28] MEDS ORDERED: BUPIVACAINE 0.5% 30 ML SDV ONE (12:06)
[2018-01-28] MEDS ORDERED: LIDOCAINE 1% 300 MG/30 ML SDV ONE (12:06)
[2018-01-28] MEDS ORDERED: ONDANSETRON 4 MG/2 ML VIAL ONE (12:37)
[2018-01-28] MEDS ORDERED: ROCURONIUM 50 MG/5 ML VIAL ONE (12:37)
[2018-01-28] MEDS ORDERED: PHENYLEPHRINE 10 MG/ML SDV ONE (12:37)
[2018-01-28] MEDS ORDERED: SUGAMMADEX SODIUM 200 MG/2 ML VIAL IVP ONE (12:37)
[2018-01-28] MEDS ORDERED: LIDOCAINE 2% 5 ML SDV ONE (12:37)
[2018-01-28] MEDS ORDERED: ISOPROTERENOL HCL/D5W 0.2 MG/50 ML BAG IV ONE (12:41)
[2018-01-28] MEDS ORDERED: ONDANSETRON 4 MG/2 ML VIAL IVP PRN ×2 (13:02→13:21)
[2018-01-28] MEDS ORDERED: ACETAMINOPHEN 325 MG TAB PO PRN (13:04)
[2018-01-28] MEDS ORDERED: ALBUTEROL 3 ML DEYVIAL IH PRN (13:21)
[2018-01-28] MEDS ORDERED: fentaNYL 100 MCG/2 ML INJ IVP PRN (13:21)
[2018-01-28] MEDS ORDERED: NALOXONE HCL 0.4 MG/ML INJ IVP PRN (13:21)
--- NOTE | 2018-01-28 13:21 | POSTANESTH ---
Post Anesthetic Evaluation Cardiovascular Status: Normal, Stable Respiratory Status: Normal, Stable, Similar to Pre-op Cond. Level of Consciousness/Mental Status: Can Participate in Eval Pain Control: Adequate, Prn Tx Ordered Nausea/Vomiting Control: Adequate, Prn Tx Ordered Complications Possibly Related to Anesthesia: None Noted
--- NOTE | 2018-01-28 13:30 | CPEKG ---
Heart Rate: 100 RR Interval: 600 P-R Interval: 151 QRSD Interval: 146 QT Interval: 428 QTC Interval: 553 P [place]: 0 QRS [place]: 248 T Wave [place]: 33 EKG Severity - ABNORMAL ECG - EKG Impression: VENTRICULAR-PACED RHYTHM EKG Impression: No significant change from January 28, 2018, 9:39 Electronically Signed By: Vicente Lin 28-Jan-2018 17:52:44
[2018-01-28] MEDS ORDERED: TORSEMIDE 20 MG TAB PO SCH (15:00)
[2018-01-28] MEDS: ACETAMINOPHEN 325 MG TAB PO PRN (15:00)
[2018-01-28] MEDS ORDERED: WARFARIN SODIUM 5 MG TAB PO SCH (16:00)
[2018-01-28] MEDS: CARVEDILOL 25 MG TAB PO SCH (18:56)
[2018-01-28] MEDS ORDERED: DOCUSATE SODIUM 100 MG CAP PO SCH (21:00)
[2018-01-28] MEDS: traMADol 50 MG TAB PO SCH (22:11)
[2018-01-28] MEDS: ALLOPURINOL 100 MG TAB PO SCH (22:12)
[2018-01-29] MEDS: ACETAMINOPHEN 325 MG TAB PO PRN (03:05)
[2018-01-29 04:18] LABS: PLATELET COUNT 105 10^3/uL (150-400)
[2018-01-29 04:32] LABS: INR 1.15 (0.83-1.16); PROTIME(PATIENT) 14.9 SEC (12.0-15.0)
[2018-01-29 06:08] LABS: CREATINE KINASE 42 IU/L (0-156)
[2018-01-29 06:55] VITALS: BP 95/69
--- NOTE | 2018-01-29 08:41 | EPPROC ---
Electrophysiology Procedure Note: CATHETER MEDIATED ABLATION OF THE AV JUNCTION Procedures performed: 06986 AV node ablation Fluoroscopy INDICATION: Atrial fibrillation, unable to rate control despite maximally tolerated medical therapy Catheters & Anesthesia: The patient arrived in the Electrophysiology Laboratory in the fasting state. General anesthesia was administered by anesthesia staff. The right groin and left groin area were prepped and draped in the usual sterile manner. Appropriate non-invasive blood pressure, pulse oximetry and end-tidal CO2 monitoring was established. All catheters were placed percutaneously using the modified Seldinger technique and advanced into position under fluoroscopic guidance). At baseline the patient was noted to be in AF with a mean ventricular rate of 110 bpm. A #7 Irish deflectable quadrapolar electrode catheter (2mm-5mm-2mm spacing) with 4 mm tip electrode was advanced to the right atrium. A total of 2 RF applications were delivered. RF#1 was applied in the area of the compact AV node. RF#2 was applied to the same area as RF#1. The AV node was located distally and a SL1 sheath was used. There was complete AV block after RF#2. Cessation of pacing revealed that there was junctional escape rhythm at a rate of 34bpm. Isuprel given at 1 and then 2mcg/kg/min with no improvement in conduction. Pacemaker implantation was done previously. The pacemaker was programmed to a lower rate of 100 ppm to reduce the risk of sudden associated with torsades de pointes. The lower rate will gradually be reduced to 60 ppm after 1 month . Fluoroscopically pacemaker lead positions were unchanged after procedure Pacemaker thresholds and impedances were unchanged after the procedure The catheters were removed. The patient was transferred to the cardiovascular holding area in stable condition. Vascular access sheaths were removed in the holding area. There were no apparent complications. CONCLUSIONS: Atrial fibrillation with rapid ventricular response. Successful ablation of the AV junction producing complete AV block. Junctional escape rhythm at a rate of 34 bpm. No complications. Patient Problems: Problems Problem Status Onset CHF exacerbation Acute Diastolic CHF Acute Hypertension Acute Kidney neoplasm Acute PVC (premature ventricular contraction) Acute chronic disease mgmt/transitional care Acute
[2018-01-29] MEDS ORDERED: SPIRONOLACTONE 25 MG TAB PO SCH (09:00)
[2018-01-29] MEDS ORDERED: amLODIPine BESYLATE 5 MG TAB PO SCH (09:00)
[2018-01-29] MEDS ORDERED: POTASSIUM CL 20 MEQ TAB PO SCH (09:00)
[2018-01-29] MEDS ORDERED: TORSEMIDE 20 MG TAB PO SCH (09:00)
[2018-01-29] MEDS ORDERED: CHOLECALCIFEROL VIT D3 1,000 UNITS TAB PO SCH (09:00)
--- NOTE | 2018-01-29 09:06 | CPEKG ---
Heart Rate: 101 RR Interval: 594 QRSD Interval: 102 QT Interval: 356 QTC Interval: 462 P [place]: 0 QRS [place]: -49 T Wave [place]: 153 EKG Severity - ABNORMAL ECG - EKG Impression: VENTRICULAR-PACED COMPLEXES EKG Impression: LAD, CONSIDER LEFT ANTERIOR FASCICULAR BLOCK EKG Impression: One PVC EKG Impression: No significant change from January 28, 2018 Electronically Signed By: Vicente Lin 29-Jan-2018 10:47:34
[2018-01-29] MEDS: ALLOPURINOL 100 MG TAB PO SCH (09:53)
[2018-01-29] MEDS: traMADol 50 MG TAB PO SCH (09:54)
[2018-01-29] MEDS: CARVEDILOL 25 MG TAB PO SCH (09:54)
--- NOTE | 2018-01-29 10:55 | ECHO ---
[email or web address] [place] [id number] Main: [phone] Fax: Transthoracic Echocardiogram Name: JOLEEN WHITNEY MR#: [id number] Study Date: 01/29/2018 Study Time: 08:20 AM Date of : 1940 Age: 77 year(s) Height: 157.5 cm (62 in.) Weight: 62.14 kg (137 lb.) BSA: 1.63 m2 Gender: Female Examination: Echo Indication: post EP Image Quality: Adequate Contrast: Requested by: Maurilio Davison BP: 95 mmHg/69 mmHg Heart Rate: 106 bpm Rhythm: Indication: post EP Procedure Staff Gasket Inspector: Lenore Francois [facility] Reading Physician: Chaitanya Patel MD Requesting Provider: Conclusions: Moderately dilated left ventricle. Borderline concentric LV hypertrophy. Severely reduced systolic LV function. EF is 18 %. Grade 3 diastolic dysfunction (reversible restrictive LV filling pattern). Elevated left ventricular filling pressures.. Severe global hypokinesis of the left ventricle. IVS is dyskinetic.. Mildly to moderately reduced right ventricular function. There is a ICD/Pacer wire noted in the right ventricle. The left atrium is severely dilated. The right atrium is moderately dilated. There is an ICD lead noted in the right atrium. There is moderate thickening of the mitral valve leaflets. Severe mitral valve regurgitation is present. No mitral stenosis is present. The aortic valve is tri-leaflet and functions normally. Aortic sclerosis is present. Trivial aortic valve regurgitation. No aortic valve stenosis is present. Low flow velocities across the valves consistent with low caridac output. Severe tricuspid regurgitation is present. Right ventricular systolic pressure measures 59mmHg. The pulmonary artery pressure is severely increased. The pulmonic valve is normal in appearance and function. Mild pulmonic valve regurgitation is noted. Normal size aortic root measuring 2.8 cm. Measurements: Chambers Valvular Assessment AV/MV Valvular Assessment TV/PV Patient: JOLEEN WHITNEY Study Date: 01/29/2018 Page 1 of 3 08:20 AM Normal Normal Normal Name Value Range Name Value Range Name Value Range Ao Susy (MM): 2.8 cm (2.2 cm-3.7 AV Vmax: 1.06 m/s (1 m/s-1.7 TR Vmax: 3.33 mm/s ( - ) cm) m/s) TR PGmax: 44 mmHg ( - ) IVSd (2D): 0.9 cm (0.6 cm-1.1 AV maxP mmHg ( - ) syst. PAP: 59 mmHg ( - ) cm) LVOT Vmax: 0.50 m/s (0.7 m/s-1.1 PV Vmax: 0.78 m/s (0.6 m/s-0.9 LVDd (2D): 6.1 cm (3.9 cm-5.3 m/s) m/s) cm) JOSE L (Vmax): 1.5 cm2 ( - ) PV PGmax: 2 mmHg ( - ) LVDs (2D): 5.4 cm (2.1 cm-4 MV E Vmax: 1.14 m/s ( - ) cm) MV A Vmax: 0.24 m/s ( - ) LVPWd (2D): 1.0 cm ( - ) MV E/A: 4.75 ( - ) LVOTd 2.0 cm 2.0 cm mm MV maxP mmHg ( - ) LVEF (BP): 18 % (>=55 %) MV meanP mmHg ( - ) RVDd(2D): 3.5 cm (1.9 cm-3.8 MVA (Vmax): 1.9 m/s ( - ) cmmm) Continued Measurements: Chambers Valvular Assessment AV/MV Valvular Assessment TV/PV Name Value Name Value Name Value LADs: 4.9 cm MV Annulus: 3.3 cm CVP (est.): 15 mmHg LADs Lon.6 cm MV E/E' Septal: 13.00 LA Area: 27.0 cm2 MV E/E' Lateral: 17.20 LA Volume: 105 ml MV VTI: 11.60 cm LA Volume Index: 64.4 ml/m2 MR Vena Contracta: 0.6 cm RA Area: 24.0 cm2 MR ERO: 0.310 cm2 MR PISA radius: 8 mm MR Reg. Volume: 44 ml MR Reg. Fraction: 44 % Additional Vessels Name Value Ao Ascendin.3 cm Findings: Left Ventricle: Moderately dilated left ventricle. Borderline concentric LV hypertrophy. Severely reduced systolic LV function. EF is 18 %. Grade 3 diastolic dysfunction (reversible restrictive LV filling pattern). Elevated left ventricular filling pressures.. Severe global hypokinesis of the left ventricle. IVS is dyskinetic.. Right Ventricle: Normal size right ventricle. Mildly to moderately reduced right ventricular function. There is a ICD/Pacer wire noted in the right ventricle. Left Atrium: The left atrium is severely dilated. Right Atrium: The right atrium is moderately dilated. There is an ICD lead noted in the right atrium. Mitral Valve: There is moderate thickening of the mitral valve leaflets. Severe mitral valve regurgitation is present. No mitral stenosis is present. Aortic Valve: The aortic valve is tri-leaflet and functions normally. Aortic sclerosis is present. Trivial aortic valve regurgitation. No aortic valve stenosis is present. Low flow velocities across the valves consistent with low caridac output. Tricuspid Valve: The tricuspid valve appears normal. Severe tricuspid regurgitation is present. Right ventricular systolic pressure measures 59mmHg. The pulmonary artery pressure is severely increased. Pulmonic Valve: The pulmonic valve is normal in appearance and function. Mild pulmonic valve regurgitation is noted. Aorta: Patient: JLOEEN WHITNEY Study Date: 01/29/2018 Page 2 of 3 08:20 AM Normal size aortic root measuring 2.8 cm. Normal size ascending aorta measuring 3.3 cm. IVC: The IVC is dilated. There is less than 50% respiratory excursion. Pericardium: Small pericardial effusion. (No Signature Object) Patient: JOLEEN WHITNEY Study Date: 01/29/2018 Page 3 of 3 08:20 AM [id number]
--- NOTE | 2018-01-29 11:40 | GDS ---
[f rep st] DISCHARGE SUMMARY ADMISSION DIAGNOSES: 1. Hnufx-mw-nvlbyyp systolic heart failure. 2. Persistent atrial fibrillation. 3. Anemia of chronic illness. 4. Sleep apnea. 5. Hypertension. 6. Mitral regurgitation. 7. Pulmonary hypertension. 8. Renal insufficiency. 9. Tricuspid regurgitation. 10. Remote AICD implantation. DISCHARGE DIAGNOSES: 1. Mqnxc-at-izoedjd systolic heart failure. 2. Persistent atrial fibrillation. 3. Status post AV node ablation. 4. Anemia of chronic illness. 5. Sleep apnea. 6. Hypertension. 7. Mitral regurgitation. 8. Pulmonary hypertension. 9. Renal insufficiency. 10. Tricuspid regurgitation. /[id number]/MODL
--- NOTE | 2018-01-29 12:41 | GDS ---
[f rep st] DISCHARGE SUMMARY ADMISSION DIAGNOSES: 1. Atrial fibrillation with rapid ventricular response, with history of medication intolerance. 2. Nonischemic cardiomyopathy with known ejection fraction less than 28%, history of acute on chroni c systolic heart failure. 3. Hypertension. 4. Renal insufficiency. 5. Valvular heart disease. 6. Remote BiV automatic implantable cardioverter-defibrillator implantation done on January 06, 2018. DISCHARGE DIAGNOSES: 1. Atrial fibrillation with rapid ventricular response with history of medication intolerance. 2. Nonischemic cardiomyopathy with ejection fraction less than 28%. 3. History of acute on chronic systolic heart failure. 4. Remote history of biventricular automatic implantable cardioverter-defibrillator implantation. 5. Status post arteriovenous node ablation. 6. Hypertension. 7. Renal insufficiency. 8. Valvular heart disease with known moderate to severe mitral regurgitation and tricuspid regurgita tion. PROCEDURES PERFORMED DURING HOSPITALIZATION: 1. Electrocardiogram. 2. AV node ablation. 3. Device change with ventricular on AICD with rate increased to 100 BPM. 4. Echocardiogram. BRIEF HISTORY: Please see H and P. Briefly, the patient is a 77-year-old female. She has a known hi story of nonischemic cardiomyopathy with low ejection fraction. She has been noted to have episodes of atrial fibrillation and has been known to be medication intolerant. She has recently had a BiV AI CD implantation approximately January 06, 2018. She has tolerated the device fine. She was brought in to the hospital for elective AV node ablation. HOSPITAL COURSE: Patient admitted through CVC, taken to the electrophysiology lab. There, Dr. Davison performed EP procedure, in which successful AV node ablation of the AV junction producing complete AV block. The patient's junctional escape rhythm was at 34 beats per minute. Then device was set for 100 beats per minute. Patient was transferred back to the CVC and then ultimately to the PCU overnight. There, she has rem ained ventricular throughout the night. She has remained with underlying rhythm of atrial fibrillati on, with ventricular rate at 101 BPM. She denies any chest pain, pressure or symptoms suggestive of worsening heart failure. She has been up and walking in the unit without difficulties. PHYSICAL EXAMINATION: GENERAL APPEARANCE: Today, thin, well-groomed female. She i s alert and oriented to person, place, time, and situation. Appears to be under no acute distress at this time. CURRENT VITAL SIGNS: Blood pressure of 95/69, heart rate at 102 beats per minute, ventri cular paced on the monitor, respirations 20, saturating 93% on 2 L nasal cannula. Temperature of 36. 7 degrees Celsius. HEENT: Head is normocephalic. Lips and tongue are pink and moist, with no signs of cyanosis. Conjunctivae pink. NECK: Trachea is midline, +2 carotid pulses bilaterally. No ausc ultated bruits, no jugular vein distention. RESPIRATORY: Lungs are clear to auscultation. No rhonc hi, rales or wheezes. No accessory muscle use. No intercostal muscle retraction noted. CARDIAC: R egular rate, regular rhythm, S1, S2. No S3, S4, gallops, rubs or murmurs noted. ABDOMEN: Soft, non tender, bowel sounds x4 quadrants, no organomegaly, no palpable masses. SKIN: Warm, dry. No cyanos is, no clubbing, no peripheral edema. VASCULAR: +2 carotids bilateral, +1 radials bilateral, +1 pos terior tibial pulses bilateral. AICD implantation site: Left anterior chest incision healing, with Steri-Strips, no signs of infecti on. Catheter insertion site: Right groin site with no redness, swelling, drainage, ecchymosis, or hemato ma. No auscultated bruits. LABORATORY STUDIES: Laboratory studies drawn today showing WBC at 4.83, hemoglobin 9.4, hematocrit 3 0.5, platelet count at 105. INR was noted to be 1.15. Sodium 137, potassium 4.1, chloride 102, CO2 26, BUN 40, creatinine 2.1. Note, this is patient's normal. Glucose 146, calcium 8.5, CK 42, CK-MB 0.87, troponin 0.068. Noted expected to have elevated troponin levels. STUDIES: Electrocardiogram today showing underlying rhythm atrial fibrillation with ventricular pace d beat at 100 BPM. Electrophysiology study as mentioned above. Echocardiogram today showing moderate ly dilated LV borderline concentric LVH, severely reduced LV systolic function with EF of 18%. Grade 3 diastolic dysfunction was noted, severe global hypokinesis. Mjph-cg-egmkjjkh reduced RV function. LA is severely dilated. RA is moderately dilated. Severe MR, severe TR. RVSP is measured at 59 m mHg, noted to have a small pericardial effusion. Reviewed results with Dr. Davison. DISCHARGE DISPOSITION: Patient will be discharged home in fair condition. She is under activity res trictions. No strenuous activity for the next week, not lifting more than 10 pounds for the next wee k. DISCHARGE MEDICATIONS: Please see discharge medication reconciliation sheet. Note patient has been resumed on home dose of warfarin. Per Dr. Davison, no bridging will be needed at this time. She has an appointment made with [facility] next Thursday. DISCHARGE INSTRUCTIONS: Post AV node ablation discharge instructions went over with the patient, inc luding monitoring for signs of infection, bleeding precautions, activity restrictions, and medication compliance. The patient has a followup appointment set with Dr. Davison in 2 weeks. She has a device c heck in 1 week, and [facility], as mentioned above, on Thursday. At the time of discharge, patient verbalizes understanding and has no questions or concerns. She has been told if any problems or concerns come up post discharge, she is to notify our office or return to the hospital. Total time spent on discharge: Greater than 30 minutes. /[id number]/MODL
[2018-01-29] MEDS ORDERED: WARFARIN SODIUM 2.5 MG TAB PO SCH (16:00)
== END 2018-01-29 12:12 | disposition home or self-care (01) ==
LOC: FCATH 09:17 → F2W 13:02
PROVIDERS: ADMIT Internal Medicine Cardiovascular Disease; ATTEND Internal Medicine Cardiovascular Disease
PROC: 025K3ZZ Destruction of Right Ventricle, Percutaneous Approach (ICD-10-PCS; principal; 2018-01-28)
DX: I48.91 Unspecified atrial fibrillation (principal); I11.0 Hypertensive heart disease with heart failure; I42.9 Cardiomyopathy, unspecified; I50.23 Acute on chronic systolic (congestive) heart failure; Z95.810 Presence of automatic (implantable) cardiac defibrillator
CPT/HCPCS: 93005; 93306; 93650; C1733; C1893; J1644; J2250; J2370; J2405; J2704; P9041

== ENCOUNTER 2018-03-11 06:58 | Day surgery (SDC) | payer OTHER, BC ==
[2018-03-11] MEDS ORDERED: DIAZEPAM 5 MG TAB PO ONE (07:01)
[2018-03-11] MEDS ORDERED: TEMAZEPAM 15 MG CAP PO PRN (07:01)
[2018-03-11] MEDS ORDERED: NS 1,000 ML IV SCH (07:01)
[2018-03-11] MEDS ORDERED: NITROGLYCERIN 0.4 MG BTL SL PRN (07:01)
[2018-03-11] MEDS ORDERED: ASPIRIN EC 325 MG TAB PO ONE (07:01)
[2018-03-11] MEDS ORDERED: ACETAMINOPHEN 325 MG TAB PO PRN (07:01)
[2018-03-11 07:33] LABS: PLATELET COUNT 137 10^3/uL (150-400)
--- NOTE | 2018-03-11 07:33 | CPEKG ---
Heart Rate: 94 RR Interval: 638 QRSD Interval: 144 QT Interval: 420 QTC Interval: 526 QRS [place]: 221 T Wave [place]: 49 EKG Severity - ABNORMAL ECG - EKG Impression: AFIB/FLUT AND V-PACED COMPLEXES Electronically Signed By: Maurilio Davison 11-Mar-2018 08:44:22
[2018-03-11 07:42] LABS: INR 1.14 (0.83-1.16); PROTIME(PATIENT) 14.8 SEC (12.0-15.0)
--- NOTE | 2018-03-11 08:06 | PDHPUP ---
History & Physical Update H&P update statement: This history and physical update is based on an assessment of the patient which was completed after admission or registration (within 24 hours), but prior to the surgery/procedure. H&P update: H&P reviewed & patient examined H&P changes: she feels worse than two weeks ago now with class IV NYHA sx. Denies CP, PND, fevers or chills.
[2018-03-11] MEDS ORDERED: LIDOCAINE 1% 300 MG/30 ML SDV ONE (08:09)
[2018-03-11] MEDS ORDERED: MIDAZOLAM 2 MG/2 ML VIAL ONE (08:10)
[2018-03-11] MEDS ORDERED: fentaNYL 100 MCG/2 ML INJ ONE (08:10)
[2018-03-11] MEDS ORDERED: ONDANSETRON 4 MG/2 ML VIAL IVP PRN (09:36)
[2018-03-11] MEDS ORDERED: HYDROCODONE/APAP 5/325 TAB PO PRN (09:36)
[2018-03-11] MEDS ORDERED: ATROPINE SULFATE 1 MG/10 ML SYR IVP PRN (09:36)
--- NOTE | 2018-03-11 09:36 | PDDXCAT ---
Diagnostic Cath Note - . Date: 03/11/18 Laundry Housekeeping Aide: Other (blois) Indication: other (refractory chf, evaluate for infiltrative process and evaluate shortness of breath.) High-risk criteria on non-invasive testing: severe resting left ventricular dysfunction (LVEF<35%) - Procedure Access: right groin Procedure: right heart catheterization, other (RV biopsies x 5) - Materials Right Heart Cath size: 7F Right Heart Cath materials: PWP catheter - Findings-Right Heart Catheterization RA: 15 RV: 54/9 PA: 56/30 (40) Complications: none Estimated blood loss: <50ml Closure method: manual pressure Assessment: 1)endstage CHF with elevated right heart filling pressures. 2)s/p RV biopsies x 5. Path pending. Plan: continue CHF medical treatment. Patient Problems: Problems Problem Status Onset CHF exacerbation Acute Diastolic CHF Acute Hypertension Acute Kidney neoplasm Acute PVC (premature ventricular contraction) Acute chronic disease mgmt/transitional care Acute
--- NOTE | 2018-03-11 10:27 | PDPROPOC ---
Sedation Plan of Care Sedation Plan of Care: mental status noted, patient educated of risks, benefits , alternatives, patient can tolerate sedation ASA Classification: ASA 3 Planned drugs: fentanyl, midazolam Mallampati Score: Class 2 Mallampati Reference Image: Patient passed 3-3-2 rule?: Yes
--- NOTE | 2018-03-11 12:21 | CPIP ---
[f rep st] INVASIVE CARDIAC PROCEDURE DATE OF PROCEDURE: 03/11/2018 PROCEDURE PERFORMED: Right heart catheterization via the right femoral vein with [place] catheter hemodynamics and right ventricle biopsies x4. INDICATIONS: Severe nonischemic cardiomyopathy with worsening shortness of breath, renal failure, an d abdominal swelling. CONSENT: Signed. Risks, benefits, and alternatives discussed with patient and her . They wi shed to proceed. MEDICATIONS USED DURING PROCEDURE: Versed 4 mg IV and fentanyl 100 mcg IV with continuous pulse oxim etry and hemodynamic monitoring. TECHNICAL DIFFICULTIES: None. DESCRIPTION OF PROCEDURE/RESULTS: The patient was brought to the general labor forklift operator. After sterile prepping a nd adequate IV sedation, a 7-Bangladeshi sheath was placed in her right femoral vein easily. A [place] catheter was advanced through the right heart chambers into the pulmonary artery. Her right ventricl e was massive in size and the [place] catheter, even with guidewire support, would not stay in the PA or wedge position long enough to get a wedge or cardiac output and cardiac index. Right atrial pr essure, right ventricular pressure and pulmonary artery pressure, however, were obtained. After this, the [place] catheter was removed and the small 7-Bangladeshi sheath was replaced over a long guidewire with an out of plane 8-Bangladeshi biopsy sheath. RV bioptomes were advanced and RV biopsies x 4 were taken along the right ventricular septum with good sample quality. After this, 1 more attempt was done to advance the [place] catheter into the pulmonary artery and wedge position, but could n ot because of the enormous RV size. The [place] catheter, bioptome, and sheath were removed with m anual hemostasis over the right groin. HEMODYNAMICS: The mean RA is 15, PA pressure 56/30 with a mean pulmonary artery pressure of 40. The arterial pressure was 108/73 with a mean arterial pressure of 84. RV biopsies x4 were taken along the right ventricular septum. Pathology is pending at time of dictat ion. COMPLICATIONS: None. In particular at the end of the case, fluoroscopy of the heart demonstrated no change in heart size to suggest a rapidly accumulating pericardial effusion and no evidence of apica l pneumothoraces. PLAN: The patient will be discharged home in about 4 hours from the CVC. Hopefully, her endocardium biopsy pathology will be back in the next 72 hours. In particular, we are looking for amyloidosis o r recurrent renal cell cancer. Most likely tomorrow, we will have her start on Zaroxolyn 5 mg daily, in addition to her high-dose Demadex. /[id number]/MODL
== END 2018-03-11 14:05 | disposition home or self-care (01) ==
LOC: FCATH 06:58
PROVIDERS: ATTEND Internal Medicine Cardiovascular Disease
PROC: B2141ZZ Fluoroscopy of Right Heart using Low Osmolar Contrast (ICD-10-PCS; principal; 2018-03-11)
PROC: B2111ZZ Fluoroscopy of Multiple Coronary Arteries using Low Osmolar Contrast (ICD-10-PCS; principal; 2018-03-11)
PROC: 4A023N6 Measurement of Cardiac Sampling and Pressure, Right Heart, Percutaneous Approach (ICD-10-PCS; principal; 2018-03-11)
PROC: 02B Heart and Great Vessels, Excision (ICD-10-PCS; principal; 2018-03-11)
DX: I50.23 Acute on chronic systolic (congestive) heart failure (principal); I50.84 End stage heart failure; I11.0 Hypertensive heart disease with heart failure; Z85.528 Personal history of other malignant neoplasm of kidney; Z90.5 Acquired absence of kidney
CPT/HCPCS: J1644; J2250; J3010

== ENCOUNTER 2018-06-22 09:43 | Day surgery (SDC) | payer OTHER, BC ==
[2018-06-22] MEDS ORDERED: BENZOCAINE UNIT DOSE SPRAY HURRICAINE MM ONE (09:46)
[2018-06-22] MEDS ORDERED: MIDAZOLAM 2 MG/2 ML VIAL IVP ONE (09:46)
[2018-06-22] MEDS ORDERED: fentaNYL 100 MCG/2 ML INJ IVP ONE (09:46)
[2018-06-22] MEDS ORDERED: NS 500 ML IV ONE (09:46)
--- NOTE | 2018-06-22 11:08 | PDANEPAE ---
ANE History of Present Illness Patient presents for FÉLIX ANE Past Medical History - Cardiovascular History Hx Hypertension: Yes Hx Arrhythmias: Yes Hx Chest Pain: No Hx Coronary Artery / Peripheral Vascular Disease: No Hx CHF / Valvular Disease: No Cardiovascular History Comment: htn- controlled c meds. had heart failure while in [facility] 5 yrs ago-was off bp meds too long no problems since. denies chest pain, released by 2010. - Pulmonary History Hx COPD: No Hx Asthma/Reactive Airway Disease: No Hx Recent Upper Respiratory Infection: No Hx Oxygen in Use at Home: Yes Hx Sleep Apnea: Yes Pulmonary History Comment: quit smoking age 29. - Neurologic History Hx Cerebrovascular Accident: No Hx Seizures: No Hx Dementia: No - Endocrine History Hx Diabetes: No - Renal History Hx Renal Disorders: Yes Renal History Comment: l kidney tumor, current. - Liver History Hx Hepatic Disorders: No - Neurological & Psychiatric Hx Hx Neurological and Psychiatric Disorders: No - Cancer History Hx Cancer: No - Congenital Disorder History Hx Congenital Disorders: No - GI History Hx Gastrointestinal Disorders: Yes Gastrointestinal History Comment: hx cholelithiasis. hx appy. - Other Health History Other Health History: upper denture and lower implants x 3. anemia when younger. - Chronic Pain History Chronic Pain: No - Surgical History Prior Surgeries: hysterectomy c kenny oophorectomy. c-sec x 2. cholecystectomy. appy. ANE Review of Systems Review of Systems: ANE Patient History - Allergies Allergies/Adverse Reactions: morphine Allergy (Mild, Verified 01/25/18 13:44) Penicillins Allergy (Verified 12/28/17 16:19) Rash - Home Medications Home medications: home medication list seen and reviewed Home Medications: Allopurinol [Allopurinol 100 MG (*)] 100 mg PO BID 08/17/12 [Last Taken 03/11/18 ] traMADol [Ultram 50 mg (*)] 50 mg PO BID 08/17/12 [Last Taken 03/11/18] Cholecalciferol Vit D3 [Vitamin D3 2000 units] 2,000 units PO DAILY 10/07/13 [ Last Taken 03/10/18] Docusate Sodium [Colace 100 MG (*)] 100 mg PO HS 12/28/17 [Last Taken 03/10/18] Potassium Cl [Klor-Con 20 meq (*)] 20 meq PO DAILY 12/28/17 [Last Taken 03/11/18 ] Spironolactone [Aldactone 25 MG (*)] 25 mg PO DAILY 12/28/17 [Last Taken 1 Day Ago ~03/10/18] Torsemide 120 mg PO BID@01/07/18 [Last Taken 1 Day Ago ~03/10/18] Warfarin Sodium [Coumadin 2.5MG (*)] 2.5 mg PO SUMOTUWEFRSA@01/25/18 [Last Taken 03/03/18] Warfarin Sodium [Coumadin 5MG (*)] 5 mg PO TH@01/25/18 [Last Taken 03/02/18] Carvedilol [Coreg (*)] 12.5 mg PO BIDMEAL 03/04/18 [Last Taken 03/11/18] Multivitamins [Multivitamin (*)] 1 each PO DAILY 03/04/18 [Last Taken 03/11/18] - NPO status NPO Status: no food or drink >8 hours - Smoking Hx Smoking Status: Former smoker - Family Anes Hx Family Hx Anesthesia Complications: none ANE Labs/Vital Signs - Vital Signs Height: 157 cm Weight: 59 kg ANE Physical Exam - Airway Neck exam: FROM, decreased ROM Mallampati Score: Class 2 Mouth exam: normal dental/mouth exam - Pulmonary Pulmonary: no respiratory distress - Cardiovascular Cardiovascular: regular rate and rhythym - ASA Status ASA Status: III ANE Anesthesia Plan Anesthesia Plan: GA with mask (RBA discussed)
[2018-06-22] MEDS ORDERED: PROPOFOL 200 MG/20 ML VIAL ONE (11:14)
--- NOTE | 2018-06-22 11:25 | PDHPUP ---
History & Physical Update H&P update statement: This history and physical update is based on an assessment of the patient which was completed after admission or registration (within 24 hours), but prior to the surgery/procedure. H&P update: H&P reviewed & patient examined, no change in patient's condition since H&P completed (Reviewed Dr. Win's office note dated 06/08/2018)
--- NOTE | 2018-06-22 12:36 | POSTANESTH ---
Post Anesthetic Evaluation Cardiovascular Status: Similar to Pre-Op Cond Respiratory Status: Similar to Pre-op Cond. Level of Consciousness/Mental Status: Mildly Sleepy, Arousable Pain Control: Adequate, Prn Tx Ordered Nausea/Vomiting Control: Adequate, Prn Tx Ordered Complications Possibly Related to Anesthesia: None Noted
== END 2018-06-22 13:35 | disposition home or self-care (01) ==
LOC: FCATH 09:43
PROVIDERS: ATTEND Internal Medicine Cardiovascular Disease
PROC: B246ZZ4 Ultrasonography of Right and Left Heart, Transesophageal (ICD-10-PCS; principal; 2018-06-22)
DX: I08.1 Rheumatic disorders of both mitral and tricuspid valves (principal); I50.23 Acute on chronic systolic (congestive) heart failure; I48.91 Unspecified atrial fibrillation; G47.33 Obstructive sleep apnea (adult) (pediatric); N18.9 Chronic kidney disease, unspecified; I13.0 Hypertensive heart and chronic kidney disease with heart failure and stage 1 through stage 4 chronic kidney disease, or unspecified chronic kidney disease; D63.8 Anemia in other chronic diseases classified elsewhere; I27.20 Pulmonary hypertension, unspecified; M10.9 Gout, unspecified; K21.9 Gastro-esophageal reflux disease without esophagitis; Z79.01 Long term (current) use of anticoagulants; Z87.891 Personal history of nicotine dependence; Z85.528 Personal history of other malignant neoplasm of kidney; Z82.49 Family history of ischemic heart disease and other diseases of the circulatory system; Z83.3 Family history of diabetes mellitus; Z90.5 Acquired absence of kidney
CPT/HCPCS: J2704